=== PATIENT | female | born 1960 | race Caucasian/White ===

== ENCOUNTER → 2017-03-05 | Outpatient (REF) | payer OTHER, MEDICARE ==
[2017-03-05 18:19] LABS: ALBUMIN 3.6 GM/DL (3.2-5.2); ALBUMIN/GLOBULIN RATIO 1.16 (1.00-1.93); ALKALINE PHOSPHATASE 91 U/L (45-117); ALT/SGPT 30 U/L (12-78); ANION GAP 7 MEQ/L (8-16); AST/SGOT 19 U/L (15-37); BILIRUBIN,TOTAL 0.3 MG/DL (0.2-1.0); BLOOD UREA NITROGEN 20 MG/DL (7-18); CALCIUM LEVEL 9.2 MG/DL (8.5-10.1); CARBON DIOXIDE LEVEL 31 MEQ/L (21-32); CHLORIDE LEVEL 105 MEQ/L (98-107); CHOLESTEROL LEVEL 134 MG/DL (<200); CREATININE FOR GFR 0.62 MG/DL (0.55-1.02); FERRITIN 27 NG/ML (8-252); GLOMERULAR FILTRATION RATE > 60.0 (>51); GLUCOSE, FASTING 98 MG/DL (70-105); POTASSIUM SERUM 4.7 MEQ/L (3.5-5.1); SODIUM LEVEL 143 MEQ/L (136-145); TOTAL PROTEIN 6.7 GM/DL (6.4-8.2); TRIGLYCERIDES LEVEL 97 MG/DL (<150)
[2017-03-05 18:25] LABS: MEAN CORPUSCULAR HGB CONC 33.2 g/dl (32.0-36.5); MEAN CORPUSCULAR VOLUME 93.3 fl (80.0-96.0); RED CELL DISTRIBUTION WIDTH 12.5 % (11.5-14.5); WHITE BLOOD COUNT 4.3 K/mm3 (4.0-10.0)
[2017-03-05 18:52] LABS: VITAMIN B12 LEVEL 1366 PG/ML (247-911)
== END ==
LOC: M SFHCLERA 10:45
PROVIDERS: ATTEND Physician Assistant
DX: Z98.84 Bariatric surgery status (principal); E11.9 Type 2 diabetes mellitus without complications; E78.2 Mixed hyperlipidemia

== ENCOUNTER → 2017-05-15 | Outpatient (REF) | payer MEDICARE ==
[~2017-05-15] MED LIST: ATOR1TAB19 PO; GABA-282 PO; INSULANT SC; INSURSD SC; METF500T4 PO; NAPR500T3 PO; NORC10TA21 PO; PANT40TA2 PO; SUCR1TA PO; TIZA4CAP3 PO; TRAM50TA2 PO; TRAZ-136 PO; ZANA4TAB PO
== END ==
LOC: M LAB REF 13:06
PROVIDERS: ATTEND Surgery
DX: D17.22 Benign lipomatous neoplasm of skin and subcutaneous tissue of left arm (principal)

== ENCOUNTER 2017-07-18 23:13 | Inpatient (IN) | payer MEDICARE ==
[~2017-07-18] VITALS: Ht 177.8 cm; Wt 104.5 kg
[2017-07-18] MEDS ORDERED: TRAM50TA2 PO (23:26)
[2017-07-18] MEDS ORDERED: TRAZ-136 PO (23:26)
[2017-07-18] MEDS ORDERED: NAPR500T3 PO (23:26)
[2017-07-18] MEDS ORDERED: INSULANT SC (23:26)
[2017-07-18] MEDS ORDERED: METF500T4 PO (23:26)
[2017-07-18] MEDS ORDERED: ATOR1TAB19 PO (23:26)
[2017-07-18] MEDS ORDERED: TIZA4CAP3 PO (23:26)
[2017-07-18] MEDS ORDERED: GABA-282 PO (23:26)
[2017-07-18] MEDS ORDERED: INSURSD SC (23:26)
[2017-07-18] MEDS ORDERED: NORC10TA21 PO (23:26)
[2017-07-19 00:33] LABS: INR 0.98
[2017-07-19 00:41] LABS: BASO % 0.5 % (0.0-1.0); EOS # 0.1 10^3/uL (0.0-0.50); EOS % 1.8 % (0.0-3.0); IMMATURE GRANULOCYTE % 0.6 % (0-0); LYMPH # 1.8 10^3/uL (1.5-4.5); MEAN CORPUSCULAR HEMOGLOBIN 28.4 pg (27.0-33.0); MEAN CORPUSCULAR HGB CONC 32.7 g/dl (32.0-36.5); MONO # 0.4 10^3/uL (0.0-0.8); NEUTROPHILS # 4.3 10^3/uL (1.8-7.7); NEUTROPHILS % 64.1 % (36.0-66.0); PLATELET COUNT, AUTOMATED 236 10^3/uL (150-450); RED CELL DISTRIBUTION WIDTH 12.6 % (11.5-14.5); WHITE BLOOD COUNT 6.6 10^3/uL (4.0-10.0)
[2017-07-19 00:53] LABS: ALBUMIN 3.2 GM/DL (3.2-5.2); ALBUMIN/GLOBULIN RATIO 1.03 (1.00-1.93); ALKALINE PHOSPHATASE 102 U/L (45-117); ALT/SGPT 27 U/L (12-78); ANION GAP 5 MEQ/L (8-16); AST/SGOT 16 U/L (15-37); BILIRUBIN,DIRECT < 0.1 MG/DL (0.0-0.2); BILIRUBIN,TOTAL 0.3 MG/DL (0.2-1.0); BLOOD UREA NITROGEN 36 MG/DL (7-18); CALCIUM LEVEL 8.7 MG/DL (8.5-10.1); CARBON DIOXIDE LEVEL 29 MEQ/L (21-32); CHLORIDE LEVEL 105 MEQ/L (98-107); CREATININE FOR GFR 0.58 MG/DL (0.55-1.02); GLOMERULAR FILTRATION RATE > 60.0 (>51); GLUCOSE, FASTING 136 MG/DL (70-105); POTASSIUM SERUM 4.6 MEQ/L (3.5-5.1); SODIUM LEVEL 139 MEQ/L (136-145); TOTAL PROTEIN 6.3 GM/DL (6.4-8.2)
[2017-07-19] MEDS ORDERED: METOCLOPRAMIDE INJ 10MG/2ML VIAL (J2765) IV ONE (01:45)
[2017-07-19] MEDS ORDERED: NS 1,000 ML IV ONE ×2 (01:45)
[2017-07-19] MEDS ORDERED: MORPHINE 4 MG/ML 1ML SYRINGE IV ONE (01:45)
[2017-07-19] MEDS ORDERED: ZANA4TAB PO (01:48)
[2017-07-19] MEDS ORDERED: GLUCAGON FOR INJ 1 MG VIAL (J1610) SC PRN (04:15)
[2017-07-19] MEDS ORDERED: GLUCOSE 4 GM CHEW TABLET PO PRN (04:15)
[2017-07-19 04:56] LABS: MEAN CORPUSCULAR HEMOGLOBIN 28.3 pg (27.0-33.0); MEAN CORPUSCULAR VOLUME 88.6 fl (80.0-96.0); RED CELL DISTRIBUTION WIDTH 12.5 % (11.5-14.5); WHITE BLOOD COUNT 6.1 10^3/uL (4.0-10.0)
[2017-07-19] MEDS: NS 1,000 ML IV SCH ×3 (05:39→20:42)
[2017-07-19] MEDS: PANTOPRAZOLE SODIUM 40 MG in D5W 50 ML IV SCH ×3 (05:40→18:48)
[2017-07-19 06:00] VITALS: BP 151/71
--- NOTE | 2017-07-19 06:59 | HPEPDOC ---
General Date of Admission Jul 19, 2017 at 03:53 Primary Care Physician: TERI EPPS PA-C Attending Physician: MALKA GARCIA MD Chief Complaint The patient is a 56-year-old female admitted with a reason for visit of Gastrointestinal Bleed. Source: Patient Exam Limitations: No limitations Timing/Duration: 4-6 hours Severity: Moderate History of Present Illness 56-year-old female, history gastric bypass in January 2013, diabetes mellitus type 2. 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 She never had these symptoms before. She is not on any antiplatelets or anticoagulants the quantity was about a cupful of size. Denies any hemoptysis, melena, hematuria, dysuria, ecchymosis, bruises or petechiae. Home Medications Scheduled Atorvastatin Calcium (Atorvastatin Calcium) 10 Mg Tab, 10 MG PO DAILY, (Reported ) Gabapentin (Gabapentin) 300 Mg Cap, 300 MG PO BID, (Reported) Insulin Glargine (Lantus) 1 Units/0.01 Ml Susp, 20 UNITS SC QHS, (Reported) Insulin Human Regular (Humulin R) 1 Units/0.01 Ml Soln, 1 UNITS SC AC, (Reported ) Metformin Hydrochloride (Metformin HCl ER) 500 Mg Tab, 500 MG PO BID, (Reported) Naproxen (Naproxen) 500 Mg Tab, 500 MG PO BID, (Reported) Tramadol HCl (Tramadol HCl) 50 Mg Tab, 100 MG PO BID, (Reported) Trazodone HCl (Trazodone HCl) 100 Mg Tab, 100 MG PO QHS, (Reported) Scheduled PRN Acetaminophen/Hydrocodone ([place] 10-325 mg) 1 Tab Tab, 1 TAB PO Q12H PRN for PAIN OR DYSPNEA, (Reported) Tizanidine Hydrochloride (Zanaflex) 4 Mg Tab, 4 MG PO DAILY PRN for MUSCLE SPASMS, (Reported) Allergies Coded Allergies: No Known Allergies (Unverified , 07/18/17) Past Medical History Medical History Diabetes mellitus, fibromyalgia fibrous tumor Surgical History fibrous tumor removal, 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 Dyspnea, Lt Headedness Gastrointestinal: Reports: Vomiting, Other Symptoms (bright red hematemesis), Denies: Nausea, Abdominal Pain, Diarrhea Genitourinary: Denies: Dysuria, Frequency, Incontinence, Retention Hematologic: Denies: Bruising, Bleeding Excessively Musculoskeletal: Denies: Neck Pain, Back Pain, Joint Pain, Muscle Pain, Spasms Neurological: Denies: Weakness, Numbness, Change in speech, Confusion Psych: Reports: Mood Normal, Denies: Depression, Memory Issues Physical Examination General Exam: Positive: Alert Eye Exam: Positive: PERRLA, Conjunctiva & lids normal, EOMI, Negative: Sclera icteric ENT Exam: Positive: Atraumatic, Mucous membr. moist/pink, Pharynx Normal Neck Exam: Positive: Supple, Negative: JVD, thyromegaly Chest Exam: Positive: Clear to auscultation, Normal air movement Heart Exam: Positive: Rate Normal, Regular Rhythm, Normal S1, Normal S2, Negative: Murmurs, Rubs Telemetry: Positive: No significant arrhythmia Abdomen Exam: Positive: Normal bowel sounds, Soft, Negative: Tenderness, Hepatospenomegaly Extremity Exam: Positive: Normal pulses, Negative: Clubbing, Cyanosis, Edema Skin Exam: Positive: Nl turgor and temperature, Negative: Breakdown, Lesion Neuro Exam: Positive: Normal Speech, Cranial Nerves 3-12 NL, Reflexes 2+ Psych Exam: Positive: Mental status NL, Mood NL, Oriented x 3 Vital Signs Vital Signs Date Time Temp Pulse Resp B/P (MAP) Pulse Ox O2 Delivery O2 Flow Rate FiO2 07/19/17 06:00 97.3 85 18 151/71 (97) 100 Room Air Laboratory Data Labs 24H Laboratory Tests 2 07/19/17 00:13: Immature Granulocyte % (Auto) 0.6H, White Blood Count 6.6, Red Blood Count 3.45L , Hemoglobin 9.8L, Hematocrit 30.0L, Mean Corpuscular Volume 87.0, Mean Corpuscular Hemoglobin 28.4, Mean Corpuscular Hemoglobin Concent 32.7, Red Cell Distribution Width 12.6, Platelet Count 236, Neutrophils (%) (Auto) 64.1, Lymphocytes (%) (Auto) 27.0, Monocytes (%) (Auto) 6.0H, Eosinophils (%) (Auto) 1.8, Basophils (%) (Auto) 0.5, Neutrophils # (Auto) 4.3, Lymphocytes # (Auto) 1.8, Monocytes # (Auto) 0.4, Eosinophils # (Auto) 0.1, Basophils # (Auto) 0.0, Immature Granulocyte # (Auto) 0.0, Nucleated Red Blood Cells % (auto) 0.0, Prothrombin Time 13.1, Prothromb Time International Ratio 0.98, Activated Partial Thromboplast Time 25.8L, Anion Gap 5L, Glomerular Filtration Rate > 60.0 , Lactic Acid Level 1.5, Calcium Level 8.7, Aspartate Amino Transf (AST/SGOT) 16 , Alanine Aminotransferase (ALT/SGPT) 27, Alkaline Phosphatase 102, Total Bilirubin 0.3, Direct Bilirubin < 0.1, Total Creatine Kinase 265H, Creatine Kinase MB 3.7H, Creatine Kinase MB Relative Index 1.39, Troponin I < 0.02, Total Protein 6.3L, Albumin 3.2, Albumin/Globulin Ratio 1.03, Lipase 153 07/19/17 04:33: CBC/BMP Laboratory Tests 07/19/17 00:13 Red Blood Count 3.45 L, Mean Corpuscular Volume 87.0, Mean Corpuscular Hemoglobin 28.4, Mean Corpuscular Hemoglobin Concent 32.7, Red Cell Distribution Width 12.6, Neutrophils (%) (Auto) 64.1, Lymphocytes (%) (Auto) 27.0, Monocytes (%) (Auto) 6.0 H, Eosinophils (%) (Auto) 1.8, Basophils (%) ( Auto) 0.5, Neutrophils # (Auto) 4.3, Lymphocytes # (Auto) 1.8, Monocytes # (Auto ) 0.4, Eosinophils # (Auto) 0.1, Basophils # (Auto) 0.0 07/19/17 04:33 Red Blood Count 3.07 L, Mean Corpuscular Volume 88.6, Mean Corpuscular Hemoglobin 28.3, Mean Corpuscular Hemoglobin Concent 32.0, Red Cell Distribution Width 12.5 Microbiology Microbiology 07/19/17 Blood Culture, Received Pending 07/19/17 Blood Culture, Received Pending 07/19/17 Urine Culture, Received Pending Assessment/Plan 56-year-old female, history of gastric bypass, diabetes mellitus type 2. Fibromyalgia presented to the emergency room for bright red hematemesis Plan / VTE VTE Prophylaxis Ordered?: Yes VTE Exclusion Pharmacological: Bleeding Risk Plan Plan Acute blood loss anemia. Hemoglobin dropped to 9.8 from the baseline of 12. Start Protonix dipstick CBC every 8 hours get to gastroenterology consult for endoscopy didn't Diabetes mellitus. Continue sliding scale insulin. And Levemir. Neuropathy. Continue with gabapentin DVT prophylaxis with SCD. Nothing by mouth Disposition Patient will likely be discharged home after endoscopy IVF: Discontinue Diet: Make NPO Activity: Continue Current Medications: Replete Electrolytes IV Diagnostics: LOAN RODRIGUEZ MD Jul 19, 2017 06:59
[2017-07-19] MEDS: HumaLOG INSULIN (NovoLOG) PER UNIT SC SCH ×3 (07:30→17:30)
[2017-07-19 08:00] VITALS: BP 153/89
[2017-07-19] MEDS ORDERED: SUCRALFATE 1 GM TAB PO ONE (08:15)
[2017-07-19] MEDS ORDERED: GI COCKTAIL 50ML BTL(HYOSCYAMINE/MAALOX/LIDOCAINE VISCOUS)(1:3:1) PO ONE (08:15)
[2017-07-19] MEDS ORDERED: MORPHINE 2 MG/ML 1ML SYRINGE IV ONE (08:15)
[2017-07-19] MEDS ORDERED: PERCOCET 5MG/325MG TAB PO ONE (08:15)
[2017-07-19] MEDS: GABAPENTIN 300 MG CAP PO SCH ×2 (08:26→20:33)
[2017-07-19] MEDS: ATORVASTATIN 10 MG TAB PO SCH (08:27)
[2017-07-19 11:59] LABS: MEAN CORPUSCULAR HEMOGLOBIN 28.2 pg (27.0-33.0); MEAN CORPUSCULAR HGB CONC 32.3 g/dl (32.0-36.5); MEAN CORPUSCULAR VOLUME 87.5 fl (80.0-96.0); RED CELL DISTRIBUTION WIDTH 12.5 % (11.5-14.5); WHITE BLOOD COUNT 6.1 10^3/uL (4.0-10.0)
[2017-07-19 12:00] VITALS: BP 127/71
[2017-07-19] MEDS: SUCRALFATE 1 GM TAB PO SCH ×2 (12:19→18:48)
[2017-07-19] MEDS: MORPHINE 2 MG/ML 1ML SYRINGE IV PRN ×3 (12:20→20:34)
[2017-07-19] MEDS ORDERED: PROPOFOL 200 MG/20 ML VIAL As Ordered ONE ×2 (15:42→16:07)
[2017-07-19] MEDS ORDERED: LIDOCAINE 2% INJ 100 MG/5 ML SDV (FOR ANES.) As Ordered ONE (15:42)
[2017-07-19] MEDS ORDERED: EPINEPHrine 1MG/10ML SYRINGE 1.5IN As Ordered ONE (16:04)
--- NOTE | 2017-07-19 16:34 | ROOR ---
Patient Name: Lisa Vasquez Procedure Date: 07/19/2017 3:27 PM Date of : 1960 Age: 56 Room: Main OR Gender: Female Note Status: Finalized Procedure: Upper GI endoscopy Indications: Hematemesis Providers: Alon Ludwig MD Referring MD: Carmina Olson MD Requesting Provider: Medicines: Monitored Anesthesia Care Complications: No immediate complications. Procedure: Pre-Anesthesia Assessment: - Prior to the procedure, a History and Physical was performed, and patient medications and allergies were reviewed. The patient is competent. The risks and benefits of the procedure and the sedation options and risks were discussed with the patient. All questions were answered and informed consent was obtained. Patient identification and proposed procedure were verified by the physician, the nurse and the body shop worker in the procedure room. Mental Status Examination: alert and oriented. Airway Examination: normal oropharyngeal airway and neck mobility. Respiratory Examination: clear to auscultation. CV Examination: normal. Prophylactic Antibiotics: The patient does not require prophylactic antibiotics. Prior Anticoagulants: The patient has taken no previous anticoagulant or antiplatelet agents. ASA Grade Assessment: III - A patient with severe systemic disease. After reviewing the risks and benefits, the patient was deemed in satisfactory condition to undergo the procedure. The anesthesia plan was to use monitored anesthesia care (MAC). Immediately prior to administration of medications, the patient was re-assessed for adequacy to receive sedatives. The heart rate, respiratory rate, oxygen saturations, blood pressure, adequacy of pulmonary ventilation, and response to care were monitored throughout the procedure. The physical status of the patient was re-assessed after the procedure. The Endoscope was introduced through the mouth, and advanced to the afferent jejunal loop. The upper GI endoscopy was accomplished without difficulty. The patient tolerated the procedure well. Findings: The examined esophagus was normal. Evidence of a Maddison-en-Y anastomosis was found in the gastric body. This was characterized by ulceration. Area was successfully injected with 4 mL of a 1:10,000 solution of epinephrine for drug delivery. One ligature was successfully placed. There was no bleeding at the end of the procedure. Exam of the jejunum was otherwise normal. Impression: - Normal esophagus. - A Maddison-en-Y anastomosis was found, characterized by ulceration. Injected. Ligated. - No specimens collected. Recommendation: - Return patient to [facility] for ongoing care. - Patient has a contact number available for emergencies. The signs and symptoms of potential delayed complications were discussed with the patient. Return to normal activities tomorrow. Written discharge instructions were provided to the patient. - Clear liquid diet today. - Give Protonix (pantoprazole): 8 mg/hr IV by continuous infusion for 1 day. - Use Protonix (pantoprazole) 40 mg PO daily for 8 weeks. - No ibuprofen, naproxen, or other non-steroidal anti-inflammatory drugs. - Repeat upper endoscopy in 3 months to check healing. - Return to GI clinic at appointment to be scheduled. Please call GI clinic @ [phone] to schedule appointment.. - Return to primary care physician. Alon Ludwig MD Alon Ludwig MD 07/19/2017 4:33:44 PM This report has been signed electronically. Number of Addenda: 0 Note Initiated On: 07/19/2017 3:27 PM Estimated Blood Loss: Estimated blood loss was minimal.
--- NOTE | 2017-07-19 17:08 | CR.PDOC ---
[facility] Consultation Consultation DATE OF CONSULTATION: Jul 19, 2017 at 1:50 PM Primary physician/ hospitalist: Dr. Sexton / Dr. Dawson Reason for consult: hematemesis. HPI: 56-year-old female with DM type 2, Obesity, fibromyalgia, history gastric bypass in January 2013, came to ER for complaints of one episode of vomiting of bright red blood and epigastric abdominal pain. Gi consulted for the same. Patient reported that she was taking naproxen 500mg twice daily since 2015. And yesterday night she had one episode of hematemesis Atleast one cupful of blood and later continued to have abdominal pain and nausea and came to ER. She denies diarrhea or dark stools. No prior similar episodes. Pertinent negative GI symptoms: Patient denies diarrhea, abdominal pain, loss of appetite, early satiety or unintentional weight loss, melena or hematochezia. Patient reports regular bowel movements. Review of Systems: GI: as stated above CVS: No chest pain, No palpitations, No leg swelling. RS: No Shortness of breath, No Wheezing, no cough DISTRICT OR DISTRICT OFFICE DIRECTOR: No dizziness, No motor weakness, No sensory problems Hematology: No bruising, No gum bleeding, Musculoskeletal: No joint pain, ambulating well. Skin: No rash : No hematuria, No burning sensation of the urine ENT: No ear discharge/ pain, No dysphagia. Eyes: No photophobia. Home medications: reviewed. Antithrombotic agents - none Medical h/o: As above. Surgical h/o: None on abdomen. Social h/o: Alcohol social, smoking denies, IVDA/ drugs denies. Family h/o of GI cancers - None Prior Endoscopies: --- EGD few years ago when she had gastric bypass - outside [facility] --- Colonoscopy none Prior GI evaluation: None in [facility] Exam: Vitals: reviewed General: Alert and oriented x 3, not in distress HEENT: NO pallor, no icterus. Normal oropharynx, NO cervical lymph nodes. Chest: symmetric with bilateral clear air entry, CVS: S1, S2 heard, normal, no murmurs . Abdomen: non-distended, obese, no surgical scars, soft, non-tender, no palpable masses, normal bowel sounds heard. Rectal exam: Patient refused / Deferred at this time in view of scheduled colonoscopy. Extremities: no pedal edema, pulses palpable. DISTRICT OR DISTRICT OFFICE DIRECTOR: no focal motor or sensory deficits. Moves all extremities Skin: no rash. Labs: reviewed. Imaging: reviewed Impression: - Hematemesis - with the drop in hemoglobin from baseline - and history of NSAID use -- likely PUD versus anastomotic ulcer, versus less likely AVMs - Anemia - likely from acute GI bleed. - Obesity - status post gastric bypass surgery. Recommendations: - Patient educated about the test results, possible differential diagnoses and All questions answered. - IV PPI for 24 hours then switch to oral pantoprazole 40 mg daily - to be taken in the morning half an hour before breakfast. - Nothing by mouth for now - Patient is scheduled for EGD today. The procedure, indications, risks ( bleeding, perforation, infection, hypotension, respiratory depression, allergy, need for endotracheal intubation, surgery, colostomy, cardiac arrest, even ), benefits, limitations (e.g., missing a lesion), and all other alternatives ( including no intervention) were explained to the patient who understood and agreed for the procedure. - Follow-up postprocedure recommendations. Plan of care discussed with patient and primary team. Patient verbalized understanding and agreed with the plan. Allergies Coded Allergies: No Known Allergies (Unverified , 07/18/17) Home Medications Scheduled Atorvastatin Calcium (Atorvastatin Calcium) 10 Mg Tab, 10 MG PO DAILY, (Reported ) Gabapentin (Gabapentin) 300 Mg Cap, 300 MG PO BID, (Reported) Insulin Glargine (Lantus) 1 Units/0.01 Ml Susp, 20 UNITS SC QHS, (Reported) Insulin Human Regular (Humulin R) 1 Units/0.01 Ml Soln, 1 UNITS SC AC, (Reported ) Metformin Hydrochloride (Metformin HCl ER) 500 Mg Tab, 500 MG PO BID, (Reported) Naproxen (Naproxen) 500 Mg Tab, 500 MG PO BID, (Reported) Tramadol HCl (Tramadol HCl) 50 Mg Tab, 100 MG PO BID, (Reported) Trazodone HCl (Trazodone HCl) 100 Mg Tab, 100 MG PO QHS, (Reported) Scheduled PRN Acetaminophen/Hydrocodone ([place] 10-325 mg) 1 Tab Tab, 1 TAB PO Q12H PRN for PAIN OR DYSPNEA, (Reported) Tizanidine Hydrochloride (Zanaflex) 4 Mg Tab, 4 MG PO DAILY PRN for MUSCLE SPASMS, (Reported) KRISTINA PICHARDO MD Jul 19, 2017 15:40
--- NOTE | 2017-07-19 17:12 | IPNPDOC ---
Date Seen The patient was seen on 07/19/17. Progress Note Patient tolerated EGD well. No post procedure complications. EGD findings: - Normal esophagus. - A Maddison-en-Y anastomosis was found, characterized by ulceration. Injected. Ligated. - No specimens collected. Recommendation: - Return patient to [facility] for ongoing care. - Patient has a contact number available for emergencies. The signs and symptoms of potential delayed complications were discussed with the patient. Return to normal activities tomorrow. Written discharge instructions were provided to the patient. - Clear liquid diet today and then advance as tolerated tomorrow.. - Give Protonix (pantoprazole): 8 mg/hr IV by continuous infusion till tomorrow 8 AM ( atleast total 24 hours). 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 - No ibuprofen, naproxen, or other non-steroidal anti-inflammatory drugs. - Repeat upper endoscopy in 3 months to check healing. - Return to GI clinic at appointment to be scheduled. Please call GI clinic @ [phone] to schedule appointment.. - Return to primary care physician. - Recall GI if any change in status. VS, I&O, 24H, Fishbone Laboratory Data 24H LABS Laboratory Tests 2 07/19/17 00:13: Immature Granulocyte % (Auto) 0.6H, White Blood Count 6.6, Red Blood Count 3.45L , Hemoglobin 9.8L, Hematocrit 30.0L, Mean Corpuscular Volume 87.0, Mean Corpuscular Hemoglobin 28.4, Mean Corpuscular Hemoglobin Concent 32.7, Red Cell Distribution Width 12.6, Platelet Count 236, Neutrophils (%) (Auto) 64.1, Lymphocytes (%) (Auto) 27.0, Monocytes (%) (Auto) 6.0H, Eosinophils (%) (Auto) 1.8, Basophils (%) (Auto) 0.5, Neutrophils # (Auto) 4.3, Lymphocytes # (Auto) 1.8, Monocytes # (Auto) 0.4, Eosinophils # (Auto) 0.1, Basophils # (Auto) 0.0, Immature Granulocyte # (Auto) 0.0, Nucleated Red Blood Cells % (auto) 0.0, Prothrombin Time 13.1, Prothromb Time International Ratio 0.98, Activated Partial Thromboplast Time 25.8L, Anion Gap 5L, Glomerular Filtration Rate > 60.0 , Lactic Acid Level 1.5, Calcium Level 8.7, Aspartate Amino Transf (AST/SGOT) 16 , Alanine Aminotransferase (ALT/SGPT) 27, Alkaline Phosphatase 102, Total Bilirubin 0.3, Direct Bilirubin < 0.1, Total Creatine Kinase 265H, Creatine Kinase MB 3.7H, Creatine Kinase MB Relative Index 1.39, Troponin I < 0.02, Total Protein 6.3L, Albumin 3.2, Albumin/Globulin Ratio 1.03, Lipase 153 07/19/17 04:33: Estimated Mean Plasma Glucose 146H, Hemoglobin A1c 6.7H 07/19/17 07:55: Bedside Glucose (Misc Panel) 122H 07/19/17 12:11: Bedside Glucose (Misc Panel) 133H CBC/BMP Laboratory Tests 07/19/17 00:13 Red Blood Count 3.45 L, Mean Corpuscular Volume 87.0, Mean Corpuscular Hemoglobin 28.4, Mean Corpuscular Hemoglobin Concent 32.7, Red Cell Distribution Width 12.6, Neutrophils (%) (Auto) 64.1, Lymphocytes (%) (Auto) 27.0, Monocytes (%) (Auto) 6.0 H, Eosinophils (%) (Auto) 1.8, Basophils (%) ( Auto) 0.5, Neutrophils # (Auto) 4.3, Lymphocytes # (Auto) 1.8, Monocytes # (Auto ) 0.4, Eosinophils # (Auto) 0.1, Basophils # (Auto) 0.0 07/19/17 04:33 Red Blood Count 3.07 L, Mean Corpuscular Volume 88.6, Mean Corpuscular Hemoglobin 28.3, Mean Corpuscular Hemoglobin Concent 32.0, Red Cell Distribution Width 12.5 07/19/17 11:50 Red Blood Count 3.19 L, Mean Corpuscular Volume 87.5, Mean Corpuscular Hemoglobin 28.2, Mean Corpuscular Hemoglobin Concent 32.3, Red Cell Distribution Width 12.5 Microbiology Microbiology 07/19/17 Blood Culture, Received Pending 07/19/17 Blood Culture, Received Pending 07/19/17 Urine Culture, Received Pending KRISTINA PICHARDO MD Jul 19, 2017 17:12
[2017-07-19 18:30] VITALS: BP 167/75
[2017-07-19 19:00] VITALS: BP 123/58
[2017-07-19 20:14] LABS: MEAN CORPUSCULAR HEMOGLOBIN 28.4 pg (27.0-33.0); MEAN CORPUSCULAR HGB CONC 31.8 g/dl (32.0-36.5); MEAN CORPUSCULAR VOLUME 89.3 fl (80.0-96.0); RED CELL DISTRIBUTION WIDTH 12.7 % (11.5-14.5); WHITE BLOOD COUNT 6.4 10^3/uL (4.0-10.0)
[2017-07-19] MEDS ORDERED: LEVEMIR (INSULIN DETEMIR) 1 UNITS/0.01ML SC SCH (21:00)
[2017-07-19 22:00] VITALS: BP 134/69
[2017-07-20] MEDS: PANTOPRAZOLE SODIUM 40 MG in D5W 50 ML IV SCH ×2 (00:46→05:13)
[2017-07-20] MEDS: SUCRALFATE 1 GM TAB PO SCH ×2 (05:13)
[2017-07-20 06:00] VITALS: BP 139/78
[2017-07-20 07:15] LABS: BASO % 0.2 % (0.0-1.0); EOS # 0.1 10^3/uL (0.0-0.50); EOS % 1.1 % (0.0-3.0); IMMATURE GRANULOCYTE % 0.4 % (0-0); LYMPH # 1.8 10^3/uL (1.5-4.5); LYMPH % 34.2 % (24.0-44.0); MEAN CORPUSCULAR HEMOGLOBIN 28.2 pg (27.0-33.0); MEAN CORPUSCULAR HGB CONC 32.1 g/dl (32.0-36.5); MONO # 0.3 10^3/uL (0.0-0.8); NEUTROPHILS # 3.1 10^3/uL (1.8-7.7); NEUTROPHILS % 58.1 % (36.0-66.0); PLATELET COUNT, AUTOMATED 239 10^3/uL (150-450); RED CELL DISTRIBUTION WIDTH 12.8 % (11.5-14.5); WHITE BLOOD COUNT 5.3 10^3/uL (4.0-10.0)
[2017-07-20 07:21] LABS: ADD MANUAL DIFFER NO; DIFF SLIDE NUMBER 53
[2017-07-20 07:26] LABS: INR 1.05
[2017-07-20 07:27] LABS: ALBUMIN 3.1 GM/DL (3.2-5.2); ALBUMIN/GLOBULIN RATIO 0.97 (1.00-1.93); ALKALINE PHOSPHATASE 92 U/L (45-117); ALT/SGPT 24 U/L (12-78); ANION GAP 3 MEQ/L (8-16); AST/SGOT 11 U/L (15-37); BILIRUBIN,TOTAL 0.3 MG/DL (0.2-1.0); BLOOD UREA NITROGEN 20 MG/DL (7-18); CALCIUM LEVEL 9.1 MG/DL (8.5-10.1); CARBON DIOXIDE LEVEL 30 MEQ/L (21-32); CHLORIDE LEVEL 110 MEQ/L (98-107); GLOMERULAR FILTRATION RATE > 60.0 (>51); GLUCOSE, FASTING 131 MG/DL (70-105); MAGNESIUM LEVEL 2.1 MG/DL (1.8-2.4); POTASSIUM SERUM 4.6 MEQ/L (3.5-5.1); SODIUM LEVEL 143 MEQ/L (136-145); TOTAL PROTEIN 6.3 GM/DL (6.4-8.2)
[2017-07-20] MEDS ORDERED: PANT40TA2 PO (08:37)
[2017-07-20] MEDS ORDERED: PANTOPRAZOLE 40MG TAB (PROTONIX) PO SCH (09:00)
[2017-07-20] MEDS ORDERED: SUCR1TA PO (09:00)
[2017-07-20] MEDS: GABAPENTIN 300 MG CAP PO SCH (09:33)
[2017-07-20] MEDS: ATORVASTATIN 10 MG TAB PO SCH (09:33)
--- NOTE | 2017-07-20 11:47 | DSES ---
DATE OF ADMISSION: 07/19/2017 DATE OF DISCHARGE: CONSULTANTS DURING THIS ADMISSION: Dr. Ludwig, gastroenterology. PRIMARY DISCHARGE DIAGNOSES: 1. Upper gastrointestinal bleed. 2. Acute blood loss anemia, no transfusion required. 3. Maddison-en-Y anastomosis with ulceration, injected and ligated. DISCHARGE INSTRUCTIONS: The patient is to take Protonix 40 mg daily for 8 weeks to be taken early breastfeeding care specialist on an empty stomach. No ibuprofen, Naprosyn or nonsteroidal antiinflammatory drugs. Repeat upper endoscopy in 3 months to check for healing. Return to the GI clinic. DISCHARGE MEDICATIONS: - Protonix 40 mg daily - Carafate 1 gram before food and nightly - [place] one tablet every 12 hours as needed for pain - atorvastatin 10 mg daily - gabapentin 300 mg twice a day - Lantus insulin 20 units at night - Humulin sliding scale - metformin 500 mg twice a day - tizanidine 4 mg daily - trazodone 100 mg at night HOSPITAL COURSE: This is a 56-year-old female with a history or Maddison-en-Y gastric bypass, diabetes, fibromyalgia, fibrous tumor, fibrous tumor removal, total of 47 in total, presented to the emergency room with acute hematemesis, about 1 cup without any shortness of breath, fatigue, weakness, dizziness, lightheadedness, admitted for further evaluation. She was kept nothing by mouth with IV fluids and Protonix drip, underwent EGD by Dr. Ludwig and found to have ulceration at the anastomotic site of the Maddison-en-Y, which was ligated and injected. She was kept on Protonix drip and transitioned to liquid diet, which she tolerated. The patient is taking Protonix and Carafate without much difficulty and is discharged in stable condition. Hemoglobin and hematocrit remained stable at 9.2 and 28.7. No blood transfusion was required. Vital signs remained stable. Systolic pressure 138/78. LABORATORY DATA: On discharge: White count 5.3, hemoglobin 9.2, hematocrit 28.7, platelet count 239. Sodium 143, potassium 4.6, chloride 110, bicarbonate 30, BUN 20, creatinine 0.6, glucose of 131, A1/c of 6.7. Microbiology: Two sets of blood cultures with no growth. Urine culture is pending. Time spent on discharge: 30 minutes.
--- NOTE | 2017-07-20 12:32 | ECGEPIP ---
Stationary ECG Study [facility] - ED Test Date: 2017-07-19 Pat Name: ANGEL WILSON Department: Room: [place] [address] Gender: F Line Person: berny : 1960 Requested By: Cecilia Marrero Order Number: [id number] Reading MD: Bree Farah Measurements Intervals [place] Rate: 74 P: 30 CT: 143 QRS: -7 QRSD: 90 T: 14 QT: 374 QTc: 416 Interpretive Statements SINUS RHYTHM NO PRIOR FOR COMPARISON Electronically Signed On 07-20-2017 12:32:25 EDT by Bree Farah
== END 2017-07-20 09:35 | disposition home or self-care (01) | DRG 907 ==
LOC: M ED 23:13 → M ED INP 07-19 03:53 → M MS5PR 07-19 17:15
PROVIDERS: ADMIT Internal Medicine; ATTEND General Practice
PROC: 0DL Gastrointestinal System, Occlusion (ICD-10-PCS; principal; 2017-07-19 14:00)
DX: K91.840 Postprocedural hemorrhage of a digestive system organ or structure following a digestive system procedure (principal); K28.4 Chronic or unspecified gastrojejunal ulcer with hemorrhage; D62 Acute posthemorrhagic anemia; E11.40 Type 2 diabetes mellitus with diabetic neuropathy, unspecified; M79.7 Fibromyalgia; Z79.4 Long term (current) use of insulin; Z79.899 Other long term (current) drug therapy; Z98.84 Bariatric surgery status

== ENCOUNTER → 2017-08-29 | Outpatient (CLI) | payer MEDICARE ==
--- NOTE | 2017-09-17 01:28 | ECWPNPC ---
PATIENT NAME: ANGEL WILSON : 1960 GENDER: FEMALE VISIT DATE: 08/29/2017 DISCHARGE DATE: 08/29/17 1316 VISIT LOCKED DATE TIME: PHYSICIAN: DANILO SHEFFIELD RESOURCE: DANILO SHEFFIELD REASON FOR APPOINTMENT 1. BACK PAIN HISTORY OF PRESENT ILLNESS FALL RISK SCREENING: SCREENING :NO FALLS IN THE PAST YEAR 56 YEAR OLD FEMALE PATIENT WITH HISTORY OF CHRONIC BACK PAIN. PATIENT DESCRIBES THE PAIN ACHING, SHARP AND HAVING IT ALL THE TIME WITH A PAIN SCORE OF 8/10. PATIENT STATES THE PAIN STARTED IN 1992 WHEN SHE HAD 47 TUMORS REMOVED FROM HER BODY. PATIENT STATES SHE DOES STRETCHES DAILY TO STAY LIMBER BUT SHE STILL HAVE SEVERE PAIN DAILY. PATIENT STATES THAT WALKING AND HOT WEATHER INCREASES THE PAIN THE MOST. PATIENT REPORTS HAVING INJECTION AND ATTENDING PHYSICAL THERAPY IN THE PAST AND HAD NO RELIEF FROM EITHER. CURRENTLY THE PATIENT IS USING ZANAFLEX, GABAPENTIN, AND HYDROCODONE TO AID IN PAIN RELIEF. PATIENT DENIES UNEXPLAINABLE WEIGHT LOSS, FEVER, CHILLS, NEW CHANGES ON HER URINARY OR BOWEL CONTROL. PAIN SCREENING: PATIENT HAS A COMPLAINT OF ACUTE OR CHRONIC PAIN :YES CURRENT MEDICATIONS TAKING B-50 COMPLEX - TABLET EXTENDED RELEASE ORALLY TAKING HUMULIN R 100 UNIT/ML SOLUTION INJECTION , NOTES: NEEDED TAKING SUMATRIPTAN SUCCINATE 50 MG TABLET 1 TABLET NEEDED ORALLY TWICE A DAY TAKING HAIR SKIN AND NAILS FORMULA - TABLET ORALLY TAKING DIFLUCAN 150 MG TABLET 1 TABLET ORALLY QDAY X 1 DAY, REPEAT IN 1 WEEK IF NECESSARY TAKING KEFLEX 500 MG CAPSULE 1 CAPSULE ORALLY TID TAKING ZANAFLEX 4 MG TABLET 1 TABLET NEEDED ORALLY THREE TIMES A DAY PRN TAKING METFORMIN HCL ER 500 MG TABLET EXTENDED RELEASE 24 HOUR 1 TABLET ORALLY BID TAKING TRAZODONE HCL 100 MG TABLET 1 TABLET AT BEDTIME ORALLY ONCE A DAY TAKING GABAPENTIN 300 MG CAPSULE 1 CAPSULE ORALLY BID TAKING LANTUS 100 UNIT/ML SOLUTION 20 UNITS SUBCUTANEOUS DAILY ICD10 E11.9 TAKING BD INSULIN SYRINGE 30G X 1/2 MISCELLANEOUS 1 INJECTION _ FOUR TIMES DAILY ICD10 E11.65 TAKING ATORVASTATIN CALCIUM 10 MG TABLET 1 TABLET ORALLY ONCE A DAY TAKING ONETOUCH VERIO - STRIP DIRECTED IN VITRO QID ICD10 Z79 TAKING HYDROCODONE-ACETAMINOPHEN 10-325 MG TABLET 1 TABLET NEEDED ORALLY EVERY 12 HOURS MEEDED MDD# 2 TAKING TRAMADOL HCL 50 MG TABLET 1 TAB ORALLY EVERY 6 HOURS NEEDED/MMD#4 TAKING PANTOPRAZOLE SODIUM 40 MG TABLET DELAYED RELEASE 1 TABLET ORALLY ONCE A DAY TAKING CARAFATE 1 GM TABLET 1 TABLET ON AN EMPTY STOMACH ORALLY TID NOT-TAKING CEPHALEXIN 500 MG CAPSULE 1 CAPSULE ORALLY THREE TIMES DAILY NEEDED NOT-TAKING TIZANIDINE HCL 4 MG TABLET 1 TABLET NEEDED ORALLY THREE TIMES A DAY PRN NOT-TAKING NAPROSYN 500 MG TABLET 1 TABLET NEEDED ORALLY EVERY 12 HRS MEDICATION LIST REVIEWED AND RECONCILED WITH THE PATIENT PAST MEDICAL HISTORY CHRONIC NECK PAIN CHRONIC LBP ALLERGIES N.K.D.A. SURGICAL HISTORY GASTRIC BYPASS 01/2013 FIBROUS TUMOR REMOVALS MULTIPLE TONSILECTOMY 2010 SOCIAL HISTORY GENERAL: TOBACCO USE ARE YOU A:FORMER SMOKER HOW LONG HAS IT BEEN SINCE YOU LAST SMOKED?> 10 YEARS LUNG CANCER SCREENING SMOKING STATUS:FORMER SMOKER BMI CARE GOAL FOLLOW-UP ABOVE NORMAL BMI FOLLOW-UPDIETARY MANAGEMENT EDUCATION, GUIDANCE, AND COUNSELING ALCOHOL SCREENING DID YOU HAVE A DRINK CONTAINING ALCOHOL IN THE PAST YEAR?YES HOW OFTEN DID YOU HAVE A DRINK CONTAINING ALCOHOL IN THE PAST YEAR?NEVER (0 POINTS) HOW MANY DRINKS DID YOU HAVE ON A TYPICAL DAY WHEN YOU WERE DRINKING IN THE PAST YEAR?1 OR 2 (0 POINTS) HOW OFTEN DID YOU HAVE SIX OR MORE DRINKS ON ONE OCCASION IN THE PAST YEAR?NEVER (0 POINTS) POINTS0 INTERPRETATIONNEGATIVE RECREATIONAL DRUG USE DRUG USE?YES MEDICINAL MARIJUANA CAFFEINE CAFFEINE USE?YES COFFEE, SODA OCCUPATION: DISABLED. MARITAL STATUS: . OTHERS AT HOME: SPOUSE. PETS: 2 DOGS- SERVICE DOGS. ORIENTAL ORTHODOX [id number] TEMPLE LANGUAGE LANGUAGES SPOKEN:BULGARIAN EDUCATION LEVEL OF EDUCATION:NOT FINISHED COLLEGE LEARNING BARRIERS / SPECIAL NEEDS CHANGE FROM LAST VISIT?NO BARRIERS TO LEARNING?NO HEARING IMPAIRED?NO VISION IMPAIRED?YES :CORRECTIVE LENSES COGNITIVELY IMPAIRED?NO READINESS TO LEARN?YES LEARNING PREFERENCES?NO LEARNING CAPABILITIES PRESENT?YES EMOTIONAL BARRIERS?NO SPECIAL DEVICES?NO ASPHALT ENGINEER NEEDED?NO PAIN CLINIC PFS, CLERGY, PUBLIC HEALTH REFERRALS HAS THE PATIENT BEEN EDUCATED REGARDING HIS/HER PLAN OF CARE?YES HAS THE PATIENT BEEN EDUCATED REGARDING PAIN, THE RISK FOR PAIN, THE IMPORTANCE OF EFFECTIVE PAIN MANAGEMENT, AND THE PAIN ASSESSMENT PROCESS?YES ADVANCE DIRECTIVES HEALTH CARE PROXY?NO DO YOU HAVE A DNR?NO LIVING WILL?NO POWER OF DIRECTOR STRATEGIC ACCOUNT MANAGEMENT?NO HOSPITALIZATION/MAJOR DIAGNOSTIC PROCEDURE SURGICAL REVIEW OF SYSTEMS REVIEWED BY: PROVIDER: DANILO SHEFFIELD MD . CONSTITUTIONAL: ANY CHANGE IN YOUR MEDICAL CONDITION? NO . CHILLS NO . FEVER NO . INFECTION: DO YOU HAVE NEW INFECTIONS? NO . DO YOU HAVE HISTORY OF MRSA? NO . MUSCULOSKELETAL: ANY NEW PATTERNS OF PAIN OR NUMBNESS? NO . SYTEMIC LUPUS NO . GASTROENTEROLOGY: ANY NEW CHANGE IN BOWEL CONTROL? NO . BARRETTS ESOPHAGUS NO . CIRRHOSIS NO . HEPATITIS NO . LIVER FAILURE NO . ACID REFLUX NO . UNEXPLAINED WEIGHT LOSS NO . GENITOURINARY: ANY NEW CHANGE IN BLADDER CONTROL? NO . IS THERE A CHANCE YOU COULD BE ? NO . HEMATOLOGY/LYMPH: DO YOU TAKE ANY BLOOD THINNERS? (FOR EXAMPLE- COUMADIN, PLAVIX, AGGRENOX, PLATEL, PRADAXA, OR XARELTO) NO . WHEN WAS YOUR LAST DOSE? DATE: TIME: . LOW PLATELET COUNT NO . SICKLE CELL DISEASE NO . VON WILLIEBRANDS NO . FACTOR V LEIDEN NO . THALLASEMIA NO . ANEMIA NO . EASY BRUISING NO . NEUROLOGY: HAVE YOU FALLEN IN THE PAST 6 MONTHS? YES, PT STATES SHE FELL FROM PAIN AND WEAKNESS, PT DENIES INJURIES OR SEEKING MEDICAL TX . ANY NEW EXTREMITY NUMBNESS OR WEAKNESS? NO . HEAD INJURY NO . DEMENTIA NO . CEREBRAL PALSY NO . MULTIPLE SCLEROSIS NO . DIZZINESS NO . HEADACHE NO . STROKES NO . VERTIGO NO . CARDIOLOGY: DO YOU HAVE A PACEMAKER OR DEFIBRILLATOR? NO . ANGINA NO . HEART ATTACK NO . HEART SURGERY NO . CONGESTIVE HEART FAILURE/FLUID OVERLOAD NO . CHEST PAIN NO . HIGH BLOOD PRESSURE NO . IRREGULAR HEART BEAT NO . RESPIRATORY: HAVE YOU BEEN SICK IN THE PAST WEEK? NO . FEVER NO . FLU LIKE SYMPTOMS? NO . CPAP NO . BYPAP NO . ASTHMA NO . EMPHYSEMA NO . CHRONIC LUNG DISEASES NO . SHORTNESS OF BREATH ON EXERTION NO . COUGH NO . SNORING NO . INTEGUMENTARY: DO YOU HAVE ANY RASHES OR OPEN SORES? NO . ALLERGIC/IMMUNO: ARE YOU ALLERGIC TO SHELLFISH OR IV DYE? NO . ANY NEW ALLERGIES? NO . PSYCHIATRIC: DO YOU HAVE THOUGHTS OF HURTING YOURSELF OR SOMEONE ELSE? NO . ARE YOU ABUSED, NEGLECTED, OR IN AN UNSAFE ENVIRONMENT? NO . ENDOCRINOLOGY: ARE YOU DIABETIC? YES . THYROID DISORDER NO . OTHER: DO YOU NEED ANY PRESCRIPTIONS? NO . IF YES, PLEASE LIST: ____ . ANY NEW PROBLEMS WITH YOUR MEDICATIONS? NO . WHEN DID YOU LAST EAT? ____ . WHEN DID YOU LAST DRINK? ____ . WHAT DID YOU LAST DRINK? ____ . NAME OF PERSON DRIVING YOU HOME? ____ . DO YOU HAVE ANY OTHER QUESTIONS OR CONCERNS NO . VITAL SIGNS WT 257.4 LBS, HT 69 IN, BMI 38.01 INDEX, BP 155/72 MM HG, HR 82 /MIN, RR 16 /MIN, TEMP 98.3 F, OXYGEN SAT % 98%, NA INITIALS TL 1149, REVIEWED BY: EM. EXAMINATION : PATIENT IS ALERT O X 3 AND COOPERATIVE. TENDERNESS IN THE LOWER BACK AND PARASPINAL MUSCLE GROUP CLOSE TO THE SACROILIAC JOINT. LEFT LEG IS WEAKER THEN THE RIGHT AT EXTENSION AND FLEXION. FAVERE TEST POSITIVE FOR PAIN BILATERALLY. LUNGS CLEAR, TO AUSCULTATION. HEART- NO MURMURS OR GALLOPS; FACIAL CRANIAL NERVES ARE GROSSLY NORMAL. GOOD SYMMETRY OF FACIAL MUSCLE MOVEMENT. NORMAL VISUAL OLSEN. ABDOMINAL SOFT AND DEPRESSIBLE. ASSESSMENTS SACROILIITIS, NOT ELSEWHERE CLASSIFIED - M46.1 (PRIMARY) LOW BACK PAIN - M54.5 OTHER CHRONIC PAIN - G89.29 TREATMENT SACROILIITIS, NOT ELSEWHERE CLASSIFIED NOTES: WE DISCUSSED SEVERAL ISSUES WITH MRS. WILSON'S PAIN MANAGEMENT CASE. AT THIS TIME THE PATIENT WILL CONTINUE WITH THE SAME MEDICATION REGIME BEFORE. PATIENT IS AWARE HER PRIMARY CARE, DR. EPPS WILL NEED TO SPEAK WITH MYSELF OR THE GEAR KEEPER TO PROCEED WITH MEDICATION MANAGEMENT. I WOULD LIKE THE PATIENT TO START PHYSICAL THERAPY TO SEE IF IT WILL AID IN MOBILITY AND FUNCTIONALITY. I WOULD ALSO LIEK THE PATIENT TO RECEIVE A LUMBAR MRI SO THAT I CAN VIEW THE SOFT TISSUE OF THE PATIENT'S LOWER BACK SO WE MAY PROCEED WITH INTERVENTIONS. PATIENT WILL RETURN IN 3 WEEKS TO DISCUSS MEDICATIONS AND POSSIBLE INTERVENTIONS PRIOR TO THE MRI. INSTRUCTIONS WERE GIVEN, QUESTIONS WERE ANSWERED, PATIENT REPORTS UNDERSTANDING AND AGREES WITH THE PLAN. I, IRMA VARGAS, DOCUMENTED THE ABOVE INFORMATION ACTING A SCRIBE FOR DR. SHEFFIELD. I HAVE REVIEWED THE ABOVE DOCUMENT, WRITTEN BY IRMA SNYDER AND I VERIFY THAT IT IS ACCURATE. DEAR DR. EPPS:THANK YOU FOR YOUR KIND REFERRAL OF MRS. WILSON. IF YOU WANT TO DISCUSS HER CASE WITH ME PLEASE CALL ME AT THE PAIN CENTER AT [phone]. SINCERELY,DANILO SHEFFIELD, [facility]. PROCEDURE CODES FA211 ESTABILISHED PATIENT [facility] FACILITY CHARGE G8427 DOC MEDS VERIFIED W/PT OR RE G8730 PAIN ASSESS POS TOOL F/U PLAN DOC DISPOSITION & COMMUNICATION FOLLOW UP 4 WEEKS ELECTRONICALLY SIGNED BY DANILO SHEFFIELD MD ON 09/15/2017 AT 06:41 PM EST DISCLAIMER : THIS IS A VISIT SUMMARY EXTRACTED FROM THE [employer] CHART. IT IS NOT A COPY OF THE [employer] PROGRESS NOTE. MAL
== END ==
LOC: M PAIN 11:30
PROVIDERS: ATTEND Anesthesiology
DX: M46.1 Sacroiliitis, not elsewhere classified (principal); M54.5 Low back pain; G89.29 Other chronic pain; E11.9 Type 2 diabetes mellitus without complications; E78.2 Mixed hyperlipidemia; Z79.4 Long term (current) use of insulin; Z79.899 Other long term (current) drug therapy; Z79.891 Long term (current) use of opiate analgesic; Z87.891 Personal history of nicotine dependence; Z98.84 Bariatric surgery status

== ENCOUNTER → 2017-09-12 | Outpatient (CLI) | payer MEDICARE ==
--- NOTE | 2017-09-12 14:55 | REP ---
Left shoulder series: Three views. History: Acute pain left shoulder. Findings: There is moderate osteoarthritic hypertrophy at the acromioclavicular joint. There is some inferior nonarticular spurring along the inferior edge of the acromion process. These findings may be related to impingement. Glenohumeral articulation is normally aligned. Humeral head is smooth and rounded. No erosive changes seen. Periarticular soft tissues are unremarkable. Impression: AC joint osteoarthritis and acromion process spurring. No acute bony abnormality. Signed by Zelalem Manzano MD 09/12/2017 02:46 P
== END ==
LOC: M LRY 13:44
PROVIDERS: ATTEND Physician Assistant
DX: M19.012 Primary osteoarthritis, left shoulder (principal)

== ENCOUNTER → 2017-09-15 | Outpatient (REF) | payer MEDICARE ==
[2017-09-15 20:40] LABS: ALBUMIN 3.6 GM/DL (3.2-5.2); ALBUMIN/GLOBULIN RATIO 0.97 (1.00-1.93); ALKALINE PHOSPHATASE 120 U/L (45-117); ALT/SGPT 22 U/L (12-78); ANION GAP 7 MEQ/L (8-16); AST/SGOT 14 U/L (7-37); BILIRUBIN,TOTAL 0.3 MG/DL (0.2-1.0); BLOOD UREA NITROGEN 15 MG/DL (7-18); CALCIUM LEVEL 9.3 MG/DL (8.5-10.1); CARBON DIOXIDE LEVEL 30 MEQ/L (21-32); CHLORIDE LEVEL 106 MEQ/L (98-107); CHOLESTEROL LEVEL 157 MG/DL (<200); GLOMERULAR FILTRATION RATE > 60.0 (>51); GLUCOSE, FASTING 55 MG/DL (70-105); POTASSIUM SERUM 4.6 MEQ/L (3.5-5.1); SODIUM LEVEL 143 MEQ/L (136-145); TOTAL PROTEIN 7.3 GM/DL (6.4-8.2); TRIGLYCERIDES LEVEL 105 MG/DL (<150)
== END ==
LOC: M SFHCLERA 14:06
PROVIDERS: ATTEND Physician Assistant
DX: E78.2 Mixed hyperlipidemia (principal); E11.9 Type 2 diabetes mellitus without complications; R63.5 Abnormal weight gain

== ENCOUNTER → 2017-09-30 | Outpatient (CLI) | payer MEDICARE | LOC: M PAIN 13:00 | DX: G89.29 Other chronic pain (principal); M54.5 Low back pain; G62.9 Polyneuropathy, unspecified; E11.9 Type 2 diabetes mellitus without complications; Z79.4 Long term (current) use of insulin; Z79.891 Long term (current) use of opiate analgesic; Z79.899 Other long term (current) drug therapy; Z87.891 Personal history of nicotine dependence; Z98.84 Bariatric surgery status | CPT/HCPCS: G0463 ==

== ENCOUNTER → 2017-10-31 | Outpatient (CLI) | payer MEDICARE | LOC: M PAIN 13:00 | DX: G89.29 Other chronic pain (principal); M54.5 Low back pain; G62.9 Polyneuropathy, unspecified; E11.9 Type 2 diabetes mellitus without complications; Z79.4 Long term (current) use of insulin; Z79.891 Long term (current) use of opiate analgesic; Z79.899 Other long term (current) drug therapy; Z98.84 Bariatric surgery status; Z87.891 Personal history of nicotine dependence | CPT/HCPCS: G0463 ==

== ENCOUNTER → 2017-11-01 | Outpatient (CLI) | payer MEDICARE | LOC: M RAD 12:54 | DX: M12.88 Other specific arthropathies, not elsewhere classified, other specified site (principal); M51.36 Other intervertebral disc degeneration, lumbar region; M43.16 Spondylolisthesis, lumbar region | CPT/HCPCS: 72148 ==

== ENCOUNTER → 2017-11-07 | Outpatient (CLI) | payer MEDICARE | LOC: M RAD 17:10 | DX: M25.512 Pain in left shoulder (principal); M75.92 Shoulder lesion, unspecified, left shoulder | CPT/HCPCS: 73221 ==

== ENCOUNTER → 2017-11-21 | Outpatient (CLI) | payer MEDICARE | LOC: M PAIN 11:30 | DX: M54.5 Low back pain (principal); G62.9 Polyneuropathy, unspecified; G89.29 Other chronic pain; E11.9 Type 2 diabetes mellitus without complications; Z79.4 Long term (current) use of insulin; Z79.891 Long term (current) use of opiate analgesic; Z79.899 Other long term (current) drug therapy; Z98.84 Bariatric surgery status; Z87.891 Personal history of nicotine dependence | CPT/HCPCS: G0463 ==

== ENCOUNTER → 2017-12-19 | Outpatient (CLI) | payer MEDICARE | LOC: M PAIN 11:30 | DX: M54.5 Low back pain (principal); G62.9 Polyneuropathy, unspecified; E11.9 Type 2 diabetes mellitus without complications; E78.5 Hyperlipidemia, unspecified; Z79.4 Long term (current) use of insulin; Z79.891 Long term (current) use of opiate analgesic; Z98.84 Bariatric surgery status; Z87.891 Personal history of nicotine dependence | CPT/HCPCS: G0463 ==

== ENCOUNTER → 2018-01-15 | Outpatient (CLI) | payer MEDICARE ==
[~2018-01-15] MED LIST changes: -ATOR1TAB19 PO; +BUPIVACAINE HCL 0.25% 30 ML VIAL As Ordered; -GABA-282 PO; -INSULANT SC; -INSURSD SC; +ISOVUE-M 300 61% 15ML VIAL (Q9967) As Ordered; +LIDOCAINE 1% SDV INJ 30 ML VIAL As Ordered; -METF500T4 PO; -NAPR500T3 PO; -NORC10TA21 PO; -PANT40TA2 PO; -SUCR1TA PO; -TIZA4CAP3 PO; -TRAM50TA2 PO; -TRAZ-136 PO; +TRIAMCINOLONE ACETONIDE SUSP 40 MG/ML VIAL (J3301) As Ordered; -ZANA4TAB PO; +diazePAM 5 MG TAB As Ordered; +oxyCODONE 5MG TAB As Ordered
== END ==
LOC: M PAIN 10:30
DX: G89.29 Other chronic pain (principal); M47.816 Spondylosis without myelopathy or radiculopathy, lumbar region; M47.817 Spondylosis without myelopathy or radiculopathy, lumbosacral region; E11.9 Type 2 diabetes mellitus without complications; Z79.4 Long term (current) use of insulin; Z79.891 Long term (current) use of opiate analgesic; Z79.899 Other long term (current) drug therapy
CPT/HCPCS: J3301

== ENCOUNTER → 2018-02-06 | Outpatient (CLI) | payer MEDICARE | LOC: M RAD 10:35 | DX: M43.12 Spondylolisthesis, cervical region (principal); M50.21 Other cervical disc displacement, high cervical region | CPT/HCPCS: 72141 ==

== ENCOUNTER → 2018-02-06 | Outpatient (CLI) | payer MEDICARE | LOC: M PAIN 11:15 | DX: M53.3 Sacrococcygeal disorders, not elsewhere classified (principal); M54.5 Low back pain; E11.9 Type 2 diabetes mellitus without complications; Z79.4 Long term (current) use of insulin; Z79.891 Long term (current) use of opiate analgesic; Z79.899 Other long term (current) drug therapy; Z98.84 Bariatric surgery status; Z87.891 Personal history of nicotine dependence | CPT/HCPCS: G0463 ==

== ENCOUNTER → 2018-03-19 | Outpatient (CLI) | payer MEDICARE | LOC: M PAIN 11:00 | DX: M46.1 Sacroiliitis, not elsewhere classified (principal); M53.88 Other specified dorsopathies, sacral and sacrococcygeal region; G89.29 Other chronic pain; E11.9 Type 2 diabetes mellitus without complications; Z79.4 Long term (current) use of insulin; Z79.891 Long term (current) use of opiate analgesic; Z79.899 Other long term (current) drug therapy; Z98.84 Bariatric surgery status; Z87.891 Personal history of nicotine dependence | CPT/HCPCS: J3301 ==

== ENCOUNTER → 2018-04-10 | Outpatient (CLI) | payer MEDICARE | LOC: M PAIN 11:00 | DX: M53.3 Sacrococcygeal disorders, not elsewhere classified (principal); M54.5 Low back pain; E11.9 Type 2 diabetes mellitus without complications; Z79.891 Long term (current) use of opiate analgesic; Z79.4 Long term (current) use of insulin; Z79.899 Other long term (current) drug therapy; Z87.891 Personal history of nicotine dependence | CPT/HCPCS: G0463 ==

== ENCOUNTER → 2018-06-18 | Outpatient (REF) | payer MEDICARE ==
[2018-06-18 21:04] LABS: ESTIMATED AVERAGE GLUCOSE 151 MG/DL (60-110); HEMOGLOBIN A1c 6.9 %
== END ==
LOC: M SFHCLERA 15:11
DX: E11.9 Type 2 diabetes mellitus without complications (principal); Z23 Encounter for immunization
CPT/HCPCS: 83036

== ENCOUNTER → 2018-06-19 | Outpatient (CLI) | payer MEDICARE | LOC: M PAIN 10:45 | DX: M53.3 Sacrococcygeal disorders, not elsewhere classified (principal); M54.5 Low back pain; E11.9 Type 2 diabetes mellitus without complications; M54.2 Cervicalgia; Z87.891 Personal history of nicotine dependence; Z79.891 Long term (current) use of opiate analgesic; Z98.84 Bariatric surgery status; Z79.4 Long term (current) use of insulin; Z79.899 Other long term (current) drug therapy | CPT/HCPCS: G0463 ==

== ENCOUNTER → 2018-07-17 | Outpatient (CLI) | payer MEDICARE | LOC: M PAIN 11:30 | DX: M53.3 Sacrococcygeal disorders, not elsewhere classified (principal); M54.5 Low back pain; G89.29 Other chronic pain; E11.40 Type 2 diabetes mellitus with diabetic neuropathy, unspecified; M79.7 Fibromyalgia; M19.90 Unspecified osteoarthritis, unspecified site; Z79.4 Long term (current) use of insulin; Z79.891 Long term (current) use of opiate analgesic; Z79.899 Other long term (current) drug therapy; Z98.84 Bariatric surgery status | CPT/HCPCS: G0463 ==

== ENCOUNTER → 2018-09-18 | Outpatient (CLI) | payer MEDICARE | LOC: M PAIN 11:30 | DX: M53.3 Sacrococcygeal disorders, not elsewhere classified (principal); M54.5 Low back pain; G89.29 Other chronic pain; E11.40 Type 2 diabetes mellitus with diabetic neuropathy, unspecified; M19.90 Unspecified osteoarthritis, unspecified site; E66.01 Morbid (severe) obesity due to excess calories; Z68.39 Body mass index [BMI] 39.0-39.9, adult; Z79.84 Long term (current) use of oral hypoglycemic drugs; Z79.899 Other long term (current) drug therapy; Z98.84 Bariatric surgery status; Z87.891 Personal history of nicotine dependence | CPT/HCPCS: G0463 ==

== ENCOUNTER → 2018-11-03 | Outpatient (REF) | payer MEDICARE ==
[~2018-11-03] MED LIST changes: +ATOR1TAB19 PO; -BUPIVACAINE HCL 0.25% 30 ML VIAL As Ordered; +GABA-843 PO; +INSULANT SC; +INSURSD SC; -ISOVUE-M 300 61% 15ML VIAL (Q9967) As Ordered; -LIDOCAINE 1% SDV INJ 30 ML VIAL As Ordered; +METF500T4 PO; +NAPR-885 PO; +NORC10TA21 PO; +PANT40TA3 PO; +SUCR1TA PO; +TIZA4CAP PO; +TRAM50TA2 PO; +TRAZ-163 PO; -TRIAMCINOLONE ACETONIDE SUSP 40 MG/ML VIAL (J3301) As Ordered; +ZANA4TAB PO; -diazePAM 5 MG TAB As Ordered; -oxyCODONE 5MG TAB As Ordered
[2018-11-03 16:57] LABS: BASO % 0.3 % (0.0-1.0); EOS % 0.3 % (0.0-3.0); HEMATOCRIT 36.4 % (36.0-47.0); LYMPH # 1.6 10^3/uL (1.5-4.5); LYMPH % 12.9 % (24.0-44.0); MEAN CORPUSCULAR HGB CONC 30.2 g/dl (32.0-36.5); MONO # 0.6 10^3/uL (0.0-0.8); MONO % 4.6 % (0.0-5.0); NEUTROPHILS # 10.1 10^3/uL (1.8-7.7); NEUTROPHILS % 81.7 % (36.0-66.0); PLATELET COUNT, AUTOMATED 390 10^3/uL (150-450); RED BLOOD COUNT 4.79 10^6/uL (4.00-5.40); WHITE BLOOD COUNT 12.4 10^3/uL (4.0-10.0)
[2018-11-03 17:05] LABS: ALT/SGPT 17 U/L (12-78); BILIRUBIN,TOTAL 0.5 MG/DL (0.2-1.0); BLOOD UREA NITROGEN 12 MG/DL (7-18); CALCIUM LEVEL 9.4 MG/DL (8.5-10.1); CARBON DIOXIDE LEVEL 26 MEQ/L (21-32); CHLORIDE LEVEL 103 MEQ/L (98-107); CHOLESTEROL LEVEL 159 MG/DL (<200); CHOLESTEROL RISK RATIO 2.523 (<5); CREATININE FOR GFR 0.87 MG/DL (0.55-1.30); GLOMERULAR FILTRATION RATE > 60.0 (>51); GLUCOSE, FASTING 138 MG/DL (70-100); HDL CHOLESTEROL 63 MG/DL (>40); LDL CHOLESTEROL 68 MG/DL (<100); NON-HDL-C 96 MG/DL; POTASSIUM SERUM 4.9 MEQ/L (3.5-5.1); SODIUM LEVEL 139 MEQ/L (136-145); TOTAL PROTEIN 7.8 GM/DL (6.4-8.2); TRIGLYCERIDES LEVEL 142 MG/DL (<150)
[2018-11-03 17:18] LABS: MALB URINE SIEMENS 37.2 MG/L; MAU/CREAT RATIO 12.8 MCG/MG (0.0-30.0)
[2018-11-03 17:32] LABS: HEMOGLOBIN A1c 7.5 %
== END ==
LOC: M SFHCLERA 12:12
PROVIDERS: ATTEND Family Medicine
DX: E11.9 Type 2 diabetes mellitus without complications (principal)
CPT/HCPCS: 80053; 80061; 82043; 83036; 84443; 85025; 90682; G0008; G0463

== ENCOUNTER → 2018-11-20 | Outpatient (CLI) | payer MEDICARE ==
--- NOTE | 2018-11-26 16:53 | REPMRS ---
Patient History The patient states she has not had a clinical breast exam in over a year. Patient is postmenopausal and is nulliparous. Family history of liver cancer at age 60 in paternal grandmother, prostate cancer at age 80 in paternal grandfather. 3D TOMOSYNTHESIS WAS PERFORMED. Digital Mammo Screening Bilat: November 20, 2018 - Exam #: [id number] Bilateral CC and MLO view(s) were taken. Technologist: Mariely Soler Technologist Prior study comparison: September 26, 2015, bilateral digital mammo screening bilat, performed at [place], [place]. FINDINGS: There are scattered fibroglandular densities. There has been no change in the appearance of the mammogram from the prior studies. There is a mild amount of residual fibroglandular tissue which is fairly symmetric. There is no interval development of dominant mass, architectural distortion, or clustered microcalcification suggestive of malignancy. Assessment: BI-RADS/ACR category 1 mammogram. Negative Mammogram. Recommendation Routine screening mammogram in 1 year (for women over age 40). This mammogram was interpreted with the aid of an FDA-approved computer-aided dectection system. Electronically Signed By: Neal Arteaga MD 11/26/18 0793
== END ==
LOC: M RAD 12:05
PROVIDERS: ATTEND Family Medicine
DX: Z12.31 Encounter for screening mammogram for malignant neoplasm of breast (principal); Z80.42 Family history of malignant neoplasm of prostate; Z80.0 Family history of malignant neoplasm of digestive organs

== ENCOUNTER → 2018-12-18 | Outpatient (CLI) | payer MEDICARE ==
--- NOTE | 2018-12-19 23:42 | ECWPNPC ---
PATIENT NAME: ANGEL WILSON : 1960 GENDER: FEMALE VISIT DATE: 12/18/2018 DISCHARGE DATE: 12/18/18 1130 VISIT LOCKED DATE TIME: PHYSICIAN: RADHA CRUZ RESOURCE: RADHA CRUZ REASON FOR APPOINTMENT 1. BACK HISTORY OF PRESENT ILLNESS HISTORY OF PRESENT ILLNESS: HERE FOR F/U AND MEDICINE MANAGEMENT OF CHRONIC LOW BACK PAIN AND GENERALIZED JOINT PAIN.USING BELBUCA 300MG BID. NOTICING IMPROVEMENT IN PAIN AND IMPROVED ACTIVITY TOLERANCE.HAS BEEN ABLE TO DECREASE OXYCODONE 5MG TO ONE TAB. PER DAY.RATING PAIN 7/10 VAS.HAS RHEUMATOLOGY APT. PENDING.DISCUSSED MEDICATION OPTIONS.HAS TRIALED MULTIPLE PAIN MEDICATIONS AND PROCEDURES OVER THE YEARS WITHOUT IMPROVEMENT IN PAIN. PAIN THE PATIENT DESCRIBES THE PAIN... THE PATIENT DESCRIBES THE PAIN... THE PATIENT DESCRIBES THE PAIN... THE PATIENT DESCRIBES THE PAIN... FALL RISK SCREENING: SCREENING : NO FALLS IN THE PAST YEAR. CURRENT MEDICATIONS TAKING B-50 COMPLEX - TABLET EXTENDED RELEASE 1 CAP ORALLY DAILY TAKING SUMATRIPTAN SUCCINATE 50 MG TABLET 1 TABLET NEEDED ORALLY TWICE A DAY TAKING HAIR SKIN AND NAILS FORMULA - TABLET 1 CAP ORALLY THREE TIMES DAILY TAKING CPAP MASK DIRECTED _ DAILY ICD10 G47.33 TAKING CEPHALEXIN 500MG CAPSULE 1 CAPSULE ORALLY THREE TIMES DAILY NEEDED TAKING DIFLUCAN 150 MG TABLET 1 TABLET ORALLY QDAY X 1 DAY, REPEAT IN 1 WEEK IF NECESSARY TAKING VITAMIN C 1000 MG TABLET 1 TABLET ORALLY BID TAKING ONETOUCH VERIO - STRIP DIRECTED IN VITRO QID ICD10 Z79 TAKING TRAZODONE HCL 100 MG TABLET 1 TABLET AT BEDTIME ORALLY ONCE A DAY TAKING BD INSULIN SYRINGE 30G X 1/2 MISCELLANEOUS 1 INJECTION _ FOUR TIMES DAILY ICD10 E11.65 TAKING ZANAFLEX 4 MG TABLET 1 TABLET NEEDED ORALLY THREE TIMES A DAY PRN TAKING BELBUCA 300 MCG FILM 1 FILM TO THE GUM BUCALLY BID MDD2 TAKING METFORMIN HCL ER 500 MG TABLET 24 HOUR SUSTAINED RELEASE TAKE 2 TABLETS BY MOUTH TWO TIMES DAILY TAKING NOVOLIN R 100 UNIT/ML SOLUTION SLIDING SCALE INJECTION THREE TO FOUR TIMES DAILY TAKING NOVOLIN N 100 UNIT/ML SUSPENSION 20 UNITS SUBCUTANEOUS BEFORE BEDTIME TAKING ATORVASTATIN CALCIUM 10 MG TABLET 1 TABLET ORALLY ONCE A DAY TAKING PANTOPRAZOLE SODIUM 40 MG TABLET DELAYED RELEASE 1 TABLET ORALLY ONCE A DAY TAKING FERROUS SULFATE 325 (65 FE) MG TABLET 1 TABLET ORALLY TWICE A DAY TAKING LISINOPRIL 2.5 MG TABLET 1 TABLET ORALLY ONCE A DAY TAKING OXYCODONE HCL 5 MG TABLET 1 TABLET NEEDED ORALLY Q8H PRN MDD MDD2 TAKING MULTI VITAMIN - TABLET 1 TABLET ORALLY ONCE A DAY, NOTES: PEAK PERFORMANCE MULTIVIAMIN FOR WOMEN NOT-TAKING TIZANIDINE HCL 4 MG TABLET 1 TABLET NEEDED ORALLY THREE TIMES A DAY NOT-TAKING LYRICA 100 MG CAPSULE 1 ORALLY BID MDD2 DISCONTINUED CARAFATE 1 GM TABLET TAKE 1 TABLET BY MOUTH 3 TIMES A DAY ON AN EMPTY STOMACH MEDICATION LIST REVIEWED AND RECONCILED WITH THE PATIENT PAST MEDICAL HISTORY CHRONIC NECK PAIN CHRONIC LBP, ON DISABILITY FOR IT, ON CHRONIC OPIATES BY PAIN CLINIC TYPE 2 DIABETES ON INSULIN AND METFORMIN, A1C 7.10 FEB 2018 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 SURGICAL HISTORY GASTRIC BYPASS 01/2013 FIBROUS TUMOR REMOVALS (47 OVER HER LIFETIME) MULTIPLE TONSILECTOMY 2010 ULCER REPAIR 07/19/17 FAMILY HISTORY FATHER: ALIVE, DIAGNOSED WITH DIABETES, HEART DISEASE MOTHER: ALIVE SIBLINGS: DIAGNOSED WITH DIABETES PATERNAL GRAND MOTHER: DIAGNOSED WITH DIABETES, CANCER MATERNAL GRAND FATHER: DIAGNOSED WITH HEART DISEASE, CANCER 2 BROTHER(S) , 1 SISTER(S) - HEALTHY. MOM--SKIN CA, ASTHMATYPE 2 DIABETESPGM- PANCREATIC CANCERMGF- LUNG CANCER. SOCIAL HISTORY GENERAL: TOBACCO USE ARE YOU A:FORMER SMOKER HOW LONG HAS IT BEEN SINCE YOU LAST SMOKED?> 10 YEARS LATEX QUESTIONNAIRE LATEX ALLERGY : HAVE YOU EVER DEVELOPED ANY TYPE OF REACTION AFTER HANDLING LATEX PRODUCTS SUCH RUBBER GLOVES, CONDOMS, DIAPHRAGMS, BALLOONS, SOCKS, OR UNDERWEAR?NO LATEX ALLERGY : HAVE YOU EVER DEVELOPED ANY TYPE OF REACTION DURING OR AFTER DENTAL APPOINTMENT, VAGINAL/RECTAL EXAMINATION, SURGICAL PROCEDURE, OR ANY OTHER EXPOSURE?NO LATEX RISK : HAVE YOU EVER HAD ANY DIFFICULTY BREATHING OR HIVES AFTER EATING OR HANDLING ANY FRUITS, OR VEGETABLES; SUCH KIWI, BANANAS, STONE FRUITS, OR CHESTNUTSNO LATEX RISK : DO YOU HAVE A PREVIOUS PERSONAL HISTORY OF MORE THAN NINE SURGERIES, SPINA BIFIDA, OR REPEATED CATHERTIZATIONS? NO LATEX RISK : ARE YOU FREQUENTLY EXPOSED TO LATEX PRODUCTS IN YOUR OCCUPATION?NO DATE ASKED : 12/18/2018 LUNG CANCER SCREENING SMOKING STATUS:FORMER SMOKER BMI CARE GOAL FOLLOW-UP ABOVE NORMAL BMI FOLLOW-UPDIETARY MANAGEMENT EDUCATION, GUIDANCE, AND COUNSELING ALCOHOL SCREENING DID YOU HAVE A DRINK CONTAINING ALCOHOL IN THE PAST YEAR?YES HOW OFTEN DID YOU HAVE SIX OR MORE DRINKS ON ONE OCCASION IN THE PAST YEAR?NEVER (0 POINTS) HOW MANY DRINKS DID YOU HAVE ON A TYPICAL DAY WHEN YOU WERE DRINKING IN THE PAST YEAR?1 OR 2 (0 POINTS) HOW OFTEN DID YOU HAVE A DRINK CONTAINING ALCOHOL IN THE PAST YEAR?NEVER (0 POINTS) POINTS0 INTERPRETATIONNEGATIVE RECREATIONAL DRUG USE DRUG USE?NO CAFFEINE CAFFEINE USE?YES COFFEE, SODA SEXUAL HX HAD SEX IN THE LAST 12 MONTHS (VAGINAL, ORAL, OR ANAL)?NO HAVE YOU EVER HAD AN STD?NO HIV / HEP-C SCREENING HIV TEST OFFERED TO PATIENT:YES DATE OFFERED:06/18/2018 TEST ACCEPTED:NO HEP-C TEST OFFERED TO PATIENT:YES DATE OFFERED:06/18/2018 REASON:PATIENT DECLINED TEST ACCEPTED:NO REASON:PATIENT DECLINED BROCHURE PROVIDED TO PATIENTYES ZOROASTRIANISM [id number] MOSQUE LANGUAGE LANGUAGES SPOKEN:PAPUA NEW GUINEAN EDUCATION LEVEL OF EDUCATION:NOT FINISHED COLLEGE LEARNING BARRIERS / SPECIAL NEEDS CHANGE FROM LAST VISIT?NO BARRIERS TO LEARNING?NO HEARING IMPAIRED?NO VISION IMPAIRED?YES COGNITIVELY IMPAIRED?NO :CORRECTIVE LENSES READINESS TO LEARN?YES LEARNING PREFERENCES?NO LEARNING CAPABILITIES PRESENT?YES EMOTIONAL BARRIERS?NO SPECIAL DEVICES?YES :[employer] [facility] [facility] [employer] ASSEMBLER NEEDED?NO DOMESTIC VIOLENCE DO YOU FEEL SAFE IN YOUR ENVIRONMENT?YES OCCUPATION: DISABLED. DIET: NO CONCENTRATED SWEETS., CARBOHYDRATE CONTROLLED. EXERCISE: DAILY. MARITAL STATUS: . OTHERS AT HOME: SPOUSE. PAIN CLINIC PFS, CLERGY, PUBLIC HEALTH REFERRALS HAS THE PATIENT BEEN EDUCATED REGARDING HIS/HER PLAN OF CARE?YES HAS THE PATIENT BEEN EDUCATED REGARDING PAIN, THE RISK FOR PAIN, THE IMPORTANCE OF EFFECTIVE PAIN MANAGEMENT, AND THE PAIN ASSESSMENT PROCESS?YES ADVANCE DIRECTIVE ADVANCE DIRECTIVE DISCUSSED WITH PATIENT:YES PT STATES SHE DOES NOT HAVE HCP AND DECLINES INFO AND ASSISTANCE AT THIS TIME. 12/18/18 REVIEWED WITH PATIENT 09/18/18 1158 JSREVIEWED WITH PT 12/18/18 1046 BV. HOSPITALIZATION/MAJOR DIAGNOSTIC PROCEDURE SURGICAL BLEEDING ULCER 07/2017 REVIEW OF SYSTEMS REVIEWED BY: PROVIDER: RADHA CARLSON . CONSTITUTIONAL: ANY CHANGE IN YOUR MEDICAL CONDITION? YES, DIAGNOSED ANEMIC IN [facility], WAS STARTED ON IRON SUPPLEMENT . CHILLS NO . FEVER NO . INFECTION: DO YOU HAVE NEW INFECTIONS? NO . DO YOU HAVE HISTORY OF MRSA? NO . MUSCULOSKELETAL: ANY NEW PATTERNS OF PAIN OR NUMBNESS? NO . GASTROENTEROLOGY: ANY NEW CHANGE IN BOWEL CONTROL? NO . GENITOURINARY: ANY NEW CHANGE IN BLADDER CONTROL? NO . IS THERE A CHANCE YOU COULD BE ? NO . HEMATOLOGY/LYMPH: DO YOU TAKE ANY BLOOD THINNERS? (FOR EXAMPLE- COUMADIN, PLAVIX, AGGRENOX, PLATEL, PRADAXA, OR XARELTO) NO . WHEN WAS YOUR LAST DOSE? DATE: TIME: . NEUROLOGY: HAVE YOU FALLEN IN THE PAST 12 MONTHS? NO . ANY NEW EXTREMITY NUMBNESS OR WEAKNESS? NO . CARDIOLOGY: DO YOU HAVE A PACEMAKER OR DEFIBRILLATOR? NO . RESPIRATORY: HAVE YOU BEEN SICK IN THE PAST WEEK? YES, PT COMPLAINS OF SORE THROAT AND CONGESTION ABOUT A WEEK AGO. STATES SYMPTOMS HAVE SINCE RESOLVED . FEVER YES, ABOUT A WEEK AGO. DENIES ANY FEVER FOR THE PAST COUPLE DAYS . FLU LIKE SYMPTOMS? NO . COUGH NO . INTEGUMENTARY: DO YOU HAVE ANY RASHES OR OPEN SORES? NO . ALLERGIC/IMMUNO: ARE YOU ALLERGIC TO IV DYE? NO . ANY NEW ALLERGIES? NO . PSYCHIATRIC: DO YOU HAVE THOUGHTS OF HURTING YOURSELF OR SOMEONE ELSE? NO . ARE YOU ABUSED, NEGLECTED, OR IN AN UNSAFE ENVIRONMENT? NO . ENDOCRINOLOGY: ARE YOU DIABETIC? YES . OTHER: DO YOU NEED ANY PRESCRIPTIONS? YES, BELBUCA . IF YES, PLEASE LIST: ____ . ANY NEW PROBLEMS WITH YOUR MEDICATIONS? NO . WHEN DID YOU LAST EAT? ____ . WHEN DID YOU LAST DRINK? ____ . WHAT DID YOU LAST DRINK? ____ . NAME OF PERSON DRIVING YOU HOME? ____ . DO YOU HAVE ANY OTHER QUESTIONS OR CONCERNS NO . VITAL SIGNS WT 258.8 LBS, HT 69 IN, BMI 38.21 INDEX, BP 172/75 MM HG, HR 78 /MIN, RR 16 /MIN, TEMP 96.0 F, OXYGEN SAT % 97%, NA INITIALS AW 1032, REVIEWED BY: BV. EXAMINATION GENERAL EXAMINATION: GENERAL APPEARANCE:ALERT/UNCOMFORTABLE. PSYCHAFFECT NORMAL. LUNGS:LUNG OLSEN ARE CLEAR TO AUSCULTATION BILATERALLY. GOOD MOVEMENT OF AIR. HEART:S1, S2 IN A REGULAR RATE AND RHYTHM. NO SIGNIFICANT MURMURS, RUBS OR GALLOPS NOTED. ASSESSMENTS LOW BACK PAIN AT MULTIPLE SITES - M54.5 (PRIMARY) CHRONIC PRESCRIPTION OPIATE USE - Z79.891 TREATMENT LOW BACK PAIN AT MULTIPLE SITES NOTES: [facility] NARCOTIC AGREEMENT WAS UPDATED REVIEWED AND SIGNED TODAY BY THE PATIENT. SEE ATTACHED DOCUMENT FOR FULL DETAILS; SPECIFIC ISSUES WERE REVIEWED: 1) KEEP PAIN MEDS IN THEIR ORIGINAL BOTTLES AND ANY WEEKLY PLANNERS ARE TO BE BROUGHT TO THE PAIN CENTER AT EVERY VISIT. 2) THE PATIENT IS NOT TO INCREASE DOSING OR TIMING OF THEIR PAIN MEDICATION WITHOUT SPECIFIC DIRECTION OF THEIR PAIN CENTERPROVIDER (NOT ER OR OTHER PROVIDERS). 3) ALL PAIN MEDS ARE TO BE KEPT SECURED, IN A LOCKED BOX. 4) NO PAIN MEDS ARE TO BE SHARED WITH ANY OTHER PERSON FOR ANY REASON. 5) NO PAIN MEDS MAY BE TAKEN FROM ANY FRIENDS OR RELATIVES FOR ANY REASON 6) NO MEDS OR SUBSTANCES WHICH ARE NOT LEGAL ARE TO BE USED- NO MARIJUANA, NO COCAINE, AMPHETAMINES, HEROIN, OR OTHERS ARE EVER TO BE USED. 7)URINE TESTING IS DONE TO ACCOUNT FOR MEDS AND SUBSTANCES BEING TAKEN AND WILL BE DONE RANDOMLY., RISKS AND BENEFITS OF NARCOTIC/OPIOD MEDICATIONS WERE REVIEWED WITH PATIENT - THIS INCLUDES BUT IS NOT LIMITED TO RISK OF DEPENDANCE/DEVELOPMENT OF ADDICTION, MOOD DISTURBANCE AND DEPRESSION, OSTEOPOROSIS, HORMONAL AND LABIDAL CHANGES, RESPIRATORY DEPRESSION AND . PATIENT IS ADVISED NOT TO DRIVE OR DRINK ALCOHOL WHILE ON THESE MEDICATIONS. PROCEDURE CODES FA211 ESTABILISHED PATIENT [facility] FACILITY CHARGE DISPOSITION & COMMUNICATION FOLLOW UP 3 MONTHS ELECTRONICALLY SIGNED BY ALDO RUBIN ON 12/18/2018 AT 02:48 PM EST DISCLAIMER : THIS IS A VISIT SUMMARY EXTRACTED FROM THE [employer] CHART. IT IS NOT A COPY OF THE [employer] PROGRESS NOTE. DERRELLD
== END ==
LOC: M PAIN 11:30
PROVIDERS: ATTEND Nurse Practitioner Family
DX: M54.5 Low back pain (principal); G89.29 Other chronic pain; E11.9 Type 2 diabetes mellitus without complications; Z98.84 Bariatric surgery status; G47.33 Obstructive sleep apnea (adult) (pediatric); M79.7 Fibromyalgia; M19.90 Unspecified osteoarthritis, unspecified site; D64.9 Anemia, unspecified; Z87.891 Personal history of nicotine dependence; Z79.4 Long term (current) use of insulin; Z79.899 Other long term (current) drug therapy

== ENCOUNTER → 2018-12-22 | Outpatient (REF) | payer MEDICARE ==
[2018-12-26 14:37] LABS: HPV HYBRID CAPTURE II Negative (Negative)
== END ==
LOC: M SFHCLERA 10:00
PROVIDERS: ATTEND Family Medicine
DX: Z12.4 Encounter for screening for malignant neoplasm of cervix (principal)
CPT/HCPCS: 87624; G0123

== ENCOUNTER → 2018-12-25 | Outpatient (CLI) | payer MEDICARE ==
--- NOTE | 2018-12-29 16:20 | SLEEPCENT ---
DATE OF PROCEDURE: 12/25/2018 ORDERED BY: ALDO Mueller Nocturnal polysomnography was performed for evaluation of sleep physiology in this patient with a prior history of obstructive sleep apnea syndrome who is experiencing excessive somnolence and nonrestorative sleep and has comorbidities of diabetes and chronic pain. 7 hours and 27 minutes of data were reviewed. There were 399 minutes of sleep identified. Sleep latency was short at 5 minutes. Rapid eye movement (REM) latency was delayed at 176 minutes. Sleep architecture was fair with 2 REM cycles. Some fragmentation was seen. Overall sleep efficiency was 91.1%. The electrocardiogram showed sinus rhythm with an average heart rate of 55 beats per minute. Heart rate ranged from 40-75 beats per minute. EEG showed normal waveforms with no focal events and normal waveforms for awake and sleep. There were 56 respiratory events identified of 10 seconds in duration or greater for an apnea-hypopnea index of 8.4. The events were obstructive, not exclusive to sleep stage or body posture. Arousals resulted 1.7 times per hour and oxygen desaturations were seen into the upper 70s. There was minimal activity in the limb leads. Snoring was noted and remaining measures of sleep physiology were normal. IMPRESSION: Obstructive sleep apnea syndrome (G47.33). Apnea-hypopnea index 8.4. RECOMMENDATIONS: The patient should be encouraged to return to the sleep disorder center for pressure therapy. In the interimm, alcohol and sedative avoidance should be practiced and caution exercised during the operation of motor vehicles.
== END ==
LOC: M SLEEP 19:37
PROVIDERS: ATTEND Nurse Practitioner Family
DX: G47.33 Obstructive sleep apnea (adult) (pediatric) (principal)

== ENCOUNTER → 2019-01-17 | Outpatient (CLI) | payer MEDICARE ==
[~2019-01-17] MED LIST changes: +CVS-161 PO; +FERR1TAB8 PO; +LISI-542 PO; -NORC10TA21 PO; +NORC1TAB5 PO; +NOVO1INJ4 SC; +OXYC5CAP56 PO; +SUMA100T2 PO; +VITA500T PO; +VITATAB73 PO; +[UNRECOGNIZED DRUG - CODE] BU
--- NOTE | 2019-01-19 07:21 | SLEEPCENT ---
DATE OF PROCEDURE: 01/17/2019 ORDERED BY: Flor Shah Nocturnal polysomnography was performed for the titration of pressure therapy in this patient with obstructive sleep apnea syndrome and apnea-hypopnea index of 8.4. For testing, a ResMed AirFit F20 full face mask of large size was used and 8 cm of water pressure was initially applied to the circuit and the lights were extinguished. 6 hours and 53 minutes of data were reviewed. There were 352 minutes of sleep identified. Sleep latency was normal at 14 minutes. Rapid eye movement (REM) sleep was delayed at 265 minutes. Sleep architecture showed poor progression, but there were 2 REM cycles late in the study. Overall sleep efficiency was 86.5%. The electrocardiogram showed a sinus rhythm with an average heart rate of 58 beats per minute. Electroencephalogram (EEG) showed normal waveforms for awake and sleep. Respiratory events were well palliated with CPAP at a pressure of +9. Oxygen saturations were maintained at 90% plus and remaining measures of sleep physiology were normal. IMPRESSION: Obstructive sleep apnea syndrome (G47.33). RECOMMENDATION: Nightly use of pressure therapy at 9 cm of water.
== END ==
LOC: M SLEEP 20:00
PROVIDERS: ATTEND Nurse Practitioner Family
DX: G47.33 Obstructive sleep apnea (adult) (pediatric) (principal)

== ENCOUNTER 2019-01-29 08:21 | Day surgery (SDC) | payer MEDICARE ==
[~2019-01-29] VITALS: Ht 177.8 cm; Wt 117.2 kg
[~2019-01-29 08:21] MED LIST changes: +LIDOCAINE 2% INJ 100 MG/5 ML SDV (FOR ANES.) As Ordered ONE; +NS 1,000 ML IV SCH; +PROPOFOL 200 MG/20 ML VIAL As Ordered ONE
[2019-01-29] MEDS ORDERED: PROPOFOL 200 MG/20 ML VIAL As Ordered ONE (10:28)
--- NOTE | 2019-01-29 10:59 | ROOR ---
Patient Name: Lisa Vasquez Procedure Date: 01/29/2019 9:55 AM Date of : 1960 Age: 58 Room: [facility] Gender: Female Note Status: Finalized Procedure: Upper GI endoscopy Indications: Follow-up of gastric ulcer Providers: Alon Ludwig MD Referring MD: Neal FERGUSON MD Requesting Provider: Medicines: Monitored Anesthesia Care Complications: No immediate complications. Procedure: Pre-Anesthesia Assessment: - Prior to the procedure, a History and Physical was performed, and patient medications and allergies were reviewed. The patient is competent. The risks and benefits of the procedure and the sedation options and risks were discussed with the patient. All questions were answered and informed consent was obtained. Patient identification and proposed procedure were verified by the physician, the nurse and the anesthesiologist in the procedure room. Mental Status Examination: alert and oriented. Airway Examination: normal oropharyngeal airway and neck mobility. Respiratory Examination: clear to auscultation. CV Examination: normal. Prophylactic Antibiotics: The patient does not require prophylactic antibiotics. Prior Anticoagulants: The patient has taken no previous anticoagulant or antiplatelet agents. ASA Grade Assessment: II - A patient with mild systemic disease. After reviewing the risks and benefits, the patient was deemed in satisfactory condition to undergo the procedure. The anesthesia plan was to use monitored anesthesia care (MAC). Immediately prior to administration of medications, the patient was re-assessed for adequacy to receive sedatives. The heart rate, respiratory rate, oxygen saturations, blood pressure, adequacy of pulmonary ventilation, and response to care were monitored throughout the procedure. The physical status of the patient was re-assessed after the procedure. The Endoscope was introduced through the mouth, and advanced to the efferent jejunal loop. The upper GI endoscopy was accomplished without difficulty. The patient tolerated the procedure well. Findings: The examined esophagus was normal. Evidence of a Maddison-en-Y gastrojejunostomy was found. The gastrojejunal anastomosis was characterized by healthy appearing mucosa. This was traversed. The jejunojejunal anastomosis was characterized by healthy appearing mucosa. The hkxhynku-yr-ystihyx limb was not examined as it could not be found. Patchy mild inflammation characterized by erythema, friability and granularity was found in the entire examined stomach. Biopsies were taken with a cold forceps for histology. For hemostasis, three hemostatic clips were successfully placed. There was no bleeding at the end of the procedure. Verification of patient identification for the specimen was done by the physician and nurse using the patient's name, date and medical record number. Estimated blood loss was minimal. The examined jejunum was normal. Biopsies for histology were taken with a cold forceps for evaluation of celiac disease. Impression: - Normal esophagus. - Maddison-en-Y gastrojejunostomy with gastrojejunal anastomosis characterized by healthy appearing mucosa. - Gastritis. Biopsied. Clips were placed. - Normal examined jejunum. Biopsied. Recommendation: - Patient has a contact number available for emergencies. The signs and symptoms of potential delayed complications were discussed with the patient. Return to normal activities tomorrow. Written discharge instructions were provided to the patient. - Resume previous diet. - Continue present medications. - Await pathology results. - Based on the biopsy results you will receive a phone call from GI clinic in 2-3 weeks to review the pathology results AND/OR your results will be faxed to your Primary care physician. - Return to primary care physician. Alon Ludwig MD Alon Ludwig MD 01/29/2019 10:59:21 AM Electronically signed by Alon Ludwig MD Number of Addenda: 0 Note Initiated On: 01/29/2019 9:55 AM Estimated Blood Loss: Estimated blood loss was minimal.
[2019-01-29 11:15] VITALS: BP 152/87
--- NOTE | 2019-01-29 11:29 | ROOR ---
Patient Name: Lisa Vasquez Procedure Date: 01/29/2019 9:57 AM Date of : 1960 Age: 58 Room: [facility] Gender: Female Note Status: Finalized Procedure: Colonoscopy Indications: Screening for colorectal malignant neoplasm Providers: Alon Ludwig MD Referring MD: Neal FERGUSON MD Requesting Provider: Medicines: Monitored Anesthesia Care Complications: No immediate complications. Procedure: Pre-Anesthesia Assessment: - Prior to the procedure, a History and Physical was performed, and patient medications and allergies were reviewed. The patient is competent. The risks and benefits of the procedure and the sedation options and risks were discussed with the patient. All questions were answered and informed consent was obtained. Patient identification and proposed procedure were verified by the physician, the nurse and the anesthesiologist in the procedure room. Mental Status Examination: alert and oriented. Airway Examination: normal oropharyngeal airway and neck mobility. Respiratory Examination: clear to auscultation. CV Examination: normal. Prophylactic Antibiotics: The patient does not require prophylactic antibiotics. Prior Anticoagulants: The patient has taken no previous anticoagulant or antiplatelet agents. ASA Grade Assessment: II - A patient with mild systemic disease. After reviewing the risks and benefits, the patient was deemed in satisfactory condition to undergo the procedure. The anesthesia plan was to use monitored anesthesia care (MAC). Immediately prior to administration of medications, the patient was re-assessed for adequacy to receive sedatives. The heart rate, respiratory rate, oxygen saturations, blood pressure, adequacy of pulmonary ventilation, and response to care were monitored throughout the procedure. The physical status of the patient was re-assessed after the procedure. The Colonoscope was introduced through the anus and advanced to the cecum, identified by appendiceal orifice and ileocecal valve. The colonoscopy was performed without difficulty. The patient tolerated the procedure well. The quality of the bowel preparation was fair and not adequate to identify polyps 6 mm and larger in size. The ileocecal valve, appendiceal orifice, and rectum were photographed. Scope insertion time was 5 minutes. Scope withdrawal time was 10 minutes. The total duration of the procedure was 15 minutes. Findings: The perianal and digital rectal examinations were normal. Three sessile polyps were found in the rectum. The polyps were 4 to 8 mm in size. These polyps were removed with a cold snare. Resection and retrieval were complete. Verification of patient identification for the specimen was done by the physician and nurse using the patient's name, date and medical record number. Estimated blood loss was minimal. A large amount of semi-liquid stool was found from sigmoid to ascending colon, interfering with visualization. Lavage of the area was performed using a large amount of sterile water, resulting in clearance with fair visualization. Non-bleeding external and internal hemorrhoids were found during retroflexion. The hemorrhoids were medium-sized. Impression: - Preparation of the colon was fair. - Preparation of the colon was inadequate. - Three 4 to 8 mm polyps in the rectum, removed with a cold snare. Resected and retrieved. - Stool from sigmoid to ascending colon. - Non-bleeding external and internal hemorrhoids. Recommendation: - Patient has a contact number available for emergencies. The signs and symptoms of potential delayed complications were discussed with the patient. Return to normal activities tomorrow. Written discharge instructions were provided to the patient. - High fiber diet. - Continue present medications. - Await pathology results. - Repeat colonoscopy in 1 year because the bowel preparation was poor and for surveillance based on pathology results. - Based on the biopsy results you will receive a phone call from GI clinic in 2-3 weeks to review the pathology results AND/OR your results will be faxed to your Primary care physician. - Return to GI clinic in 1 year. - Based on the biopsy results you will receive a phone call from GI clinic in 2-3 weeks to review the pathology results AND/OR your results will be faxed to your Primary care physician. - Return to primary care physician. Alon Ludwig MD Alon Ludwig MD 01/29/2019 11:29:27 AM Electronically signed by Alon Ludwig MD Number of Addenda: 0 Note Initiated On: 01/29/2019 9:57 AM Estimated Blood Loss: Estimated blood loss was minimal.
== END 2019-01-29 11:41 | disposition home or self-care (01) ==
LOC: M OPP 08:21
PROVIDERS: ATTEND Internal Medicine Gastroenterology
DX: Z12.11 Encounter for screening for malignant neoplasm of colon (principal); K64.8 Other hemorrhoids; K62.1 Rectal polyp; Z98.0 Intestinal bypass and anastomosis status; K29.70 Gastritis, unspecified, without bleeding; K25.9 Gastric ulcer, unspecified as acute or chronic, without hemorrhage or perforation; G47.30 Sleep apnea, unspecified; Z79.891 Long term (current) use of opiate analgesic; Z79.899 Other long term (current) drug therapy; Z98.84 Bariatric surgery status

== ENCOUNTER → 2019-03-19 | Outpatient (CLI) | payer MEDICARE ==
[~2019-03-19] MED LIST changes: -LIDOCAINE 2% INJ 100 MG/5 ML SDV (FOR ANES.) As Ordered ONE; -NS 1,000 ML IV SCH; -PROPOFOL 200 MG/20 ML VIAL As Ordered ONE
--- NOTE | 2019-04-06 02:08 | ECWPNPC ---
PATIENT NAME: ANGEL WILSON : 1960 GENDER: FEMALE VISIT DATE: 03/19/2019 DISCHARGE DATE: 03/19/19 1223 VISIT LOCKED DATE TIME: PHYSICIAN: RADHA CRUZ RESOURCE: RADHA CRUZ REASON FOR APPOINTMENT 1. JOINT PAIN HISTORY OF PRESENT ILLNESS HISTORY OF PRESENT ILLNESS: HERE FOR F/U AND MEDICINE MANAGEMENT OF CHRONIC LOW BACK PAIN AND GENERALIZED JOINT PAIN.USING BELBUCA 300MG BID. RATING PAIN 8/10 VAS.[facility] . DIAGNOSED WITH FIBROMYALGIA.DISCUSSED MEDICATION OPTIONS.HAS TRIALED MULTIPLE PAIN MEDICATIONS AND PROCEDURES OVER THE YEARS WITHOUT IMPROVEMENT IN PAIN.DISCUSSED TRIAL OF GABAPENTIN. PAIN THE PATIENT DESCRIBES THE PAIN... THE PATIENT DESCRIBES THE PAIN... THE PATIENT DESCRIBES THE PAIN... THE PATIENT DESCRIBES THE PAIN... THE PATIENT DESCRIBES THE PAIN... FALL RISK SCREENING: SCREENING :NO FALLS REPORTED IN THE LAST YEAR CURRENT MEDICATIONS TAKING B-50 COMPLEX - TABLET EXTENDED RELEASE 1 CAP ORALLY DAILY TAKING HAIR SKIN AND NAILS FORMULA - TABLET 1 CAP ORALLY THREE TIMES DAILY TAKING CPAP MASK DIRECTED _ DAILY ICD10 G47.33 TAKING VITAMIN C 1000 MG TABLET 1 TABLET ORALLY BID TAKING ONETOUCH VERIO - STRIP DIRECTED IN VITRO QID ICD10 Z79 TAKING BD INSULIN SYRINGE 30G X 1/2 MISCELLANEOUS 1 INJECTION _ FOUR TIMES DAILY ICD10 E11.65 TAKING ZANAFLEX 4 MG TABLET 1 TABLET NEEDED ORALLY THREE TIMES A DAY PRN TAKING NOVOLIN R 100 UNIT/ML SOLUTION SLIDING SCALE INJECTION THREE TO FOUR TIMES DAILY TAKING NOVOLIN N 100 UNIT/ML SUSPENSION 20 UNITS SUBCUTANEOUS BEFORE BEDTIME TAKING MULTI VITAMIN - TABLET 1 TABLET ORALLY ONCE A DAY, NOTES: PEAK PERFORMANCE MULTIVIAMIN FOR WOMEN TAKING ATORVASTATIN CALCIUM 10 MG TABLET 1 TABLET ORALLY ONCE A DAY TAKING TRAZODONE HCL 100 MG TABLET 1 TABLET AT BEDTIME ORALLY ONCE A DAY TAKING SUMATRIPTAN SUCCINATE 100 MG TABLET 1 TABLET NEEDED, MAY REPEAT DOSE ONE TIME IF NO RESPONSE IN 2 HOURS ORALLY ONCE A DAY NEEDED (MDD2, MAX MONTHLY HEADACHES 4) TAKING FERROUS SULFATE 325 (65 FE) MG TABLET 1 TABLET ORALLY TWICE A DAY TAKING METFORMIN HCL ER 500 MG TABLET 24 HOUR SUSTAINED RELEASE TAKE 2 TABLETS BY MOUTH TWO TIMES DAILY TAKING PANTOPRAZOLE SODIUM 40 MG TABLET DELAYED RELEASE 1 TABLET ORALLY ONCE A DAY TAKING CEPHALEXIN 500MG CAPSULE 1 CAPSULE ORALLY THREE TIMES DAILY NEEDED TAKING DIFLUCAN 150 MG TABLET 1 TABLET ORALLY QDAY X 1 DAY, REPEAT IN 1 WEEK IF NECESSARY TAKING BELBUCA 300 MCG FILM 1 FILM TO THE GUM BUCALLY BID MDD2 TAKING OXYCODONE HCL 5 MG TABLET 1 TABLET NEEDED ORALLY Q8H PRN MDD MDD2 TAKING LISINOPRIL 2.5 MG TABLET 1 TABLET ORALLY ONCE A DAY TAKING INSULIN SYRINGE 30G X 02/25 MISCELLANEOUS USE DIRECTED ACHS E11.65 , NOTES: OK TO SUBSTITUTE FORMULARY PREFERRED BRAND AND PATIENT PREFERRED SIZE. 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 SURGICAL HISTORY GASTRIC BYPASS 01/2013 FIBROUS TUMOR REMOVALS (47 OVER HER LIFETIME) MULTIPLE TONSILECTOMY 2010 ULCER REPAIR 07/19/17 DENTAL- TEETH EXTRACTED 12/2018 FAMILY HISTORY FATHER: ALIVE, DIAGNOSED WITH DIABETES, HEART DISEASE MOTHER: ALIVE SIBLINGS: DIABETES PATERNAL GRAND MOTHER: CANCER, DIABETES MATERNAL GRAND FATHER: HEART DISEASE, CANCER 2 BROTHER(S) , 1 SISTER(S) - HEALTHY. MOM--SKIN CA, ASTHMA\\NTYPE 2 DIABETES\\NPGM- PANCREATIC CANCER\\NMGF- LUNG CANCER. SOCIAL HISTORY GENERAL: TOBACCO USE ARE YOU A:FORMER SMOKER HOW LONG HAS IT BEEN SINCE YOU LAST SMOKED?> 10 YEARS HIV / HEP-C SCREENING HIV TEST OFFERED TO PATIENT:YES DATE OFFERED:06/18/2018 TEST ACCEPTED:NO HEP-C TEST OFFERED TO PATIENT:YES DATE OFFERED:06/18/2018 REASON:PATIENT DECLINED TEST ACCEPTED:NO REASON:PATIENT DECLINED BROCHURE PROVIDED TO PATIENTYES OTHERS AT HOME: SPOUSE. EDUCATION LEVEL OF EDUCATION:NOT FINISHED COLLEGE DIET: NO CONCENTRATED SWEETS., CARBOHYDRATE CONTROLLED. LANGUAGE LANGUAGES SPOKEN:CITIZEN OF [place] AND [place] DOMESTIC VIOLENCE DO YOU FEEL SAFE IN YOUR ENVIRONMENT?YES BMI CARE GOAL FOLLOW-UP ABOVE NORMAL BMI FOLLOW-UPDIETARY MANAGEMENT EDUCATION, GUIDANCE, AND COUNSELING RECREATIONAL DRUG USE DRUG USE?NO EXERCISE: DAILY. LEARNING BARRIERS / SPECIAL NEEDS CHANGE FROM LAST VISIT?NO BARRIERS TO LEARNING?NO HEARING IMPAIRED?NO VISION IMPAIRED?YES COGNITIVELY IMPAIRED?NO :CORRECTIVE LENSES READINESS TO LEARN?YES LEARNING PREFERENCES?NO LEARNING CAPABILITIES PRESENT?YES EMOTIONAL BARRIERS?NO SPECIAL DEVICES?YES :CANE PARTNER NEEDED?NO LUNG CANCER SCREENING SMOKING STATUS:FORMER SMOKER PAIN CLINIC PFS, CLERGY, PUBLIC HEALTH REFERRALS HAS THE PATIENT BEEN EDUCATED REGARDING HIS/HER PLAN OF CARE?YES HAS THE PATIENT BEEN EDUCATED REGARDING PAIN, THE RISK FOR PAIN, THE IMPORTANCE OF EFFECTIVE PAIN MANAGEMENT, AND THE PAIN ASSESSMENT PROCESS?YES LATEX QUESTIONNAIRE LATEX ALLERGY : HAVE YOU EVER DEVELOPED ANY TYPE OF REACTION AFTER HANDLING LATEX PRODUCTS SUCH RUBBER GLOVES, CONDOMS, DIAPHRAGMS, BALLOONS, SOCKS, OR UNDERWEAR?NO LATEX ALLERGY : HAVE YOU EVER DEVELOPED ANY TYPE OF REACTION DURING OR AFTER DENTAL APPOINTMENT, VAGINAL/RECTAL EXAMINATION, SURGICAL PROCEDURE, OR ANY OTHER EXPOSURE?NO DATE ASKED : 01/07/2019 LATEX RISK : HAVE YOU EVER HAD ANY DIFFICULTY BREATHING OR HIVES AFTER EATING OR HANDLING ANY FRUITS, OR VEGETABLES; SUCH KIWI, BANANAS, STONE FRUITS, OR CHESTNUTSNO LATEX RISK : DO YOU HAVE A PREVIOUS PERSONAL HISTORY OF MORE THAN NINE SURGERIES, SPINA BIFIDA, OR REPEATED CATHERTIZATIONS? NO LATEX RISK : ARE YOU FREQUENTLY EXPOSED TO LATEX PRODUCTS IN YOUR OCCUPATION?NO CAFFEINE CAFFEINE USE?YES COFFEE, SODA ADVANCE DIRECTIVE ADVANCE DIRECTIVE DISCUSSED WITH PATIENT:YES PT STATES SHE DOES NOT HAVE HCP AND DECLINES INFO AND ASSISTANCE AT THIS TIME. JEWISH [id number] BAPTISM MARITAL STATUS: . ALCOHOL SCREENING DID YOU HAVE A DRINK CONTAINING ALCOHOL IN THE PAST YEAR?YES HOW OFTEN DID YOU HAVE SIX OR MORE DRINKS ON ONE OCCASION IN THE PAST YEAR?NEVER (0 POINTS) HOW MANY DRINKS DID YOU HAVE ON A TYPICAL DAY WHEN YOU WERE DRINKING IN THE PAST YEAR?1 OR 2 (0 POINTS) HOW OFTEN DID YOU HAVE A DRINK CONTAINING ALCOHOL IN THE PAST YEAR?NEVER (0 POINTS) POINTS0 INTERPRETATIONNEGATIVE OCCUPATION: DISABLED. SEXUAL HX HAD SEX IN THE LAST 12 MONTHS (VAGINAL, ORAL, OR ANAL)?NO HAVE YOU EVER HAD AN STD?NO REVIEWED WITH PATIENT 09/18/18 1158 JSREVIEWED WITH PT 03/19/19 1150 LAS. HOSPITALIZATION/MAJOR DIAGNOSTIC PROCEDURE SURGICAL BLEEDING ULCER 07/2017 REVIEW OF SYSTEMS REVIEWED BY: PROVIDER: RADHA CARLSON . CONSTITUTIONAL: ANY CHANGE IN YOUR MEDICAL CONDITION? NO . CHILLS NO . FEVER NO . INFECTION: DO YOU HAVE NEW INFECTIONS? YES PT HAS HX OF "VOLCANIC LESIONS", HAS ONE NOW . DO YOU HAVE HISTORY OF MRSA? NO . MUSCULOSKELETAL: ANY NEW PATTERNS OF PAIN OR NUMBNESS? NO . GASTROENTEROLOGY: ANY NEW CHANGE IN BOWEL CONTROL? NO . GENITOURINARY: ANY NEW CHANGE IN BLADDER CONTROL? NO . IS THERE A CHANCE YOU COULD BE ? NO . HEMATOLOGY/LYMPH: DO YOU TAKE ANY BLOOD THINNERS? (FOR EXAMPLE- COUMADIN, PLAVIX, AGGRENOX, PLATEL, PRADAXA, OR XARELTO) NO . WHEN WAS YOUR LAST DOSE? DATE: TIME: . NEUROLOGY: HAVE YOU FALLEN IN THE PAST 12 MONTHS? NO . ANY NEW EXTREMITY NUMBNESS OR WEAKNESS? NO . CARDIOLOGY: DO YOU HAVE A PACEMAKER OR DEFIBRILLATOR? NO . RESPIRATORY: HAVE YOU BEEN SICK IN THE PAST WEEK? NO . FEVER NO . FLU LIKE SYMPTOMS? NO . COUGH NO . INTEGUMENTARY: DO YOU HAVE ANY RASHES OR OPEN SORES? OPEN AREA BACK OF LEFT THIGH, HEALING PER PT . ALLERGIC/IMMUNO: ARE YOU ALLERGIC TO IV DYE? NO . ANY NEW ALLERGIES? NO . PSYCHIATRIC: DO YOU HAVE THOUGHTS OF HURTING YOURSELF OR SOMEONE ELSE? NO . ARE YOU ABUSED, NEGLECTED, OR IN AN UNSAFE ENVIRONMENT? NO . ENDOCRINOLOGY: ARE YOU DIABETIC? YES . OTHER: DO YOU NEED ANY PRESCRIPTIONS? YES BELBUCA, OXYCODONE . IF YES, PLEASE LIST: ____ . ANY NEW PROBLEMS WITH YOUR MEDICATIONS? NO . WHEN DID YOU LAST EAT? ____ . WHEN DID YOU LAST DRINK? ____ . WHAT DID YOU LAST DRINK? ____ . NAME OF PERSON DRIVING YOU HOME? ____ . DO YOU HAVE ANY OTHER QUESTIONS OR CONCERNS NO . VITAL SIGNS WT 260 LBS, HT 69 IN, BMI 38.39 INDEX, BP 161/87 MM HG, HR 78 /MIN, RR 18 /MIN, TEMP 98.1 F, OXYGEN SAT % 98%, SAFE IN ENV? (Y/N) YES, NA INITIALS SC 11:30, REVIEWED BY: LOS. EXAMINATION GENERAL EXAMINATION: GENERAL APPEARANCE:ALERT/UNCOMFORTABLE. PSYCHAFFECT NORMAL. LUNGS:LUNG OLSEN ARE CLEAR TO AUSCULTATION BILATERALLY. GOOD MOVEMENT OF AIR. HEART:S1, S2 IN A REGULAR RATE AND RHYTHM. NO SIGNIFICANT MURMURS, RUBS OR GALLOPS NOTED. ASSESSMENTS SACROILIAC JOINT PAIN - M53.3 (PRIMARY) FIBROMYALGIA - M79.7 TREATMENT SACROILIAC JOINT PAIN REFILL BELBUCA FILM, 300 MCG, 1 FILM TO THE GUM, BUCALLY, BID MDD2, 30 DAY(S), 60, REFILLS 1 REFILL OXYCODONE HCL TABLET, 5 MG, 1 TABLET NEEDED, ORALLY, Q8H PRN MDD MDD2, 30 DAY(S), 60, REFILLS 0 START GABAPENTIN CAPSULE, 300 MG, 1 CAPSULE, ORALLY, Q8H TID, 30 DAY(S), 90, REFILLS 2 NOTES: ISTOP REGISTRY REVIEWED AND DEMONSTRATES COMPLLIANCE. BRINGS IN MEDICATIONS WHICH IS APPROPRIATE FOR WHAT WAS DISPENSED. RECENT URINE TOXICOLOGY REVIEWED. NO UNAUTHORIZED MEDICATIONS. NO ILLICIT SUBSTANCES AND PRESCRIBED MEDICATIONS WERE PRESENT. URINE TOX TODAY, RISKS AND BENEFITS OF NARCOTIC/OPIOD MEDICATIONS WERE REVIEWED WITH PATIENT - THIS INCLUDES BUT IS NOT LIMITED TO RISK OF DEPENDANCE/DEVELOPMENT OF ADDICTION, MOOD DISTURBANCE AND DEPRESSION, OSTEOPOROSIS, HORMONAL AND LABIDAL CHANGES, RESPIRATORY DEPRESSION AND . PATIENT IS ADVISED NOT TO DRIVE OR DRINK ALCOHOL WHILE ON THESE MEDICATIONS. PROCEDURE CODES FA211 ESTABILISHED PATIENT [facility] CHARGE DISPOSITION & COMMUNICATION FOLLOW UP 3 MONTHS ELECTRONICALLY SIGNED BY ALDO RUBIN ON 04/05/2019 AT 08:49 AM EDT DISCLAIMER : THIS IS A VISIT SUMMARY EXTRACTED FROM THE [employer] CHART. IT IS NOT A COPY OF THE [employer] PROGRESS NOTE. MTDD
== END ==
LOC: M PAIN 11:00
PROVIDERS: ATTEND Nurse Practitioner Family
DX: M53.3 Sacrococcygeal disorders, not elsewhere classified (principal); M79.7 Fibromyalgia; G89.29 Other chronic pain; Z79.4 Long term (current) use of insulin; Z79.891 Long term (current) use of opiate analgesic; Z79.899 Other long term (current) drug therapy; Z98.84 Bariatric surgery status; Z87.891 Personal history of nicotine dependence

== ENCOUNTER → 2019-06-18 | Outpatient (CLI) | payer MEDICARE ==
[~2019-06-18] MED LIST changes: +METF-791 PO; -METF500T4 PO
--- NOTE | 2019-07-01 01:52 | ECWPNPC ---
PATIENT NAME: ANGEL WILSON : 1960 GENDER: FEMALE VISIT DATE: 06/18/2019 DISCHARGE DATE: 06/18/19 1237 VISIT LOCKED DATE TIME: PHYSICIAN: RADHA CRUZ RESOURCE: RADHA CRUZ REASON FOR APPOINTMENT 1. JOINT PAIN HISTORY OF PRESENT ILLNESS HISTORY OF PRESENT ILLNESS: HERE FOR F/U AND MEDICINE MANAGEMENT OF CHRONIC LOW BACK PAIN AND GENERALIZED JOINT PAIN.USING BELBUCA 300MG BID. RATING PAIN 8/10 VAS.[facility] . DIAGNOSED WITH FIBROMYALGIA.DISCUSSED MEDICATION OPTIONS.HAS TRIALED MULTIPLE PAIN MEDICATIONS AND PROCEDURES OVER THE YEARS WITHOUT IMPROVEMENT IN PAIN.DISCUSSED TRIAL OF GABAPENTIN. PAIN THE PATIENT DESCRIBES THE PAIN... THE PATIENT DESCRIBES THE PAIN... THE PATIENT DESCRIBES THE PAIN... THE PATIENT DESCRIBES THE PAIN... THE PATIENT DESCRIBES THE PAIN... THE PATIENT DESCRIBES THE PAIN... PAIN THE PATIENT DESCRIBES THE PAIN... THE PATIENT DESCRIBES THE PAIN... THE PATIENT DESCRIBES THE PAIN... THE PATIENT DESCRIBES THE PAIN... THE PATIENT DESCRIBES THE PAIN... THE PATIENT DESCRIBES THE PAIN... FALL RISK SCREENING: SCREENING :NO FALLS REPORTED IN THE LAST YEAR CURRENT MEDICATIONS TAKING B-50 COMPLEX - TABLET EXTENDED RELEASE 1 CAP ORALLY DAILY TAKING HAIR SKIN AND NAILS FORMULA - TABLET 1 CAP ORALLY THREE TIMES DAILY TAKING CPAP MASK DIRECTED _ DAILY ICD10 G47.33 TAKING VITAMIN C 1000 MG TABLET 1 TABLET ORALLY BID TAKING BD INSULIN SYRINGE 30G X 12 MISCELLANEOUS 1 INJECTION _ FOUR TIMES DAILY ICD10 E11.65 TAKING ZANAFLEX 4 MG TABLET 1 TABLET NEEDED ORALLY THREE TIMES A DAY PRN TAKING NOVOLIN R 100 UNIT/ML SOLUTION SLIDING SCALE INJECTION THREE TO FOUR TIMES DAILY TAKING NOVOLIN N 100 UNIT/ML SUSPENSION 20 UNITS SUBCUTANEOUS BEFORE BEDTIME TAKING MULTI VITAMIN - TABLET 1 TABLET ORALLY ONCE A DAY, NOTES: PEAK PERFORMANCE MULTIVIAMIN FOR WOMEN TAKING FERROUS SULFATE 325 (65 FE) MG TABLET 1 TABLET ORALLY TWICE A DAY TAKING METFORMIN HCL ER 500 MG TABLET 24 HOUR SUSTAINED RELEASE TAKE 2 TABLETS BY MOUTH TWO TIMES DAILY TAKING PANTOPRAZOLE SODIUM 40 MG TABLET DELAYED RELEASE 1 TABLET ORALLY ONCE A DAY TAKING CEPHALEXIN 500MG CAPSULE 1 CAPSULE ORALLY THREE TIMES DAILY NEEDED TAKING DIFLUCAN 150 MG TABLET 1 TABLET ORALLY QDAY X 1 DAY, REPEAT IN 1 WEEK IF NECESSARY TAKING INSULIN SYRINGE 30G X 5/16 MISCELLANEOUS USE DIRECTED ACHS E11.65 , NOTES: OK TO SUBSTITUTE FORMULARY PREFERRED BRAND AND PATIENT PREFERRED SIZE. TAKING BELBUCA 300 MCG FILM 1 FILM TO THE GUM BUCALLY BID MDD2 TAKING RELION INSULIN SYRINGE 30G X 5/16 MISCELLANEOUS DIRECTED ACHS E11.9 TAKING ATORVASTATIN CALCIUM 10 MG TABLET TAKE 1 TABLET BY MOUTH ONCE A DAY TAKING LISINOPRIL 2.5 MG TABLET 1 TABLET ORALLY ONCE A DAY TAKING TRAZODONE HCL 100 MG TABLET 1 TABLET AT BEDTIME ORALLY ONCE A DAY TAKING SUMATRIPTAN SUCCINATE 100 MG TABLET 1 TABLET NEEDED, MAY REPEAT DOSE ONE TIME IF NO RESPONSE IN 2 HOURS ORALLY ONCE A DAY NEEDED (MDD2 , MAX MONTHLY HEADACHES 4) TAKING IRON 325 (65 FE) MG TABLET TAKE 1 TABLET BY MOUTH TWICE DAILY TAKING GABAPENTIN 300 MG CAPSULE 1 CAPSULE ORALLY Q8H TID TAKING TIZANIDINE HCL 4 MG TABLET 1 TABLET NEEDED ORALLY THREE TIMES A DAY TAKING OXYCODONE HCL 5 MG TABLET 1 TABLET NEEDED ORALLY Q8H PRN MDD MDD2 TAKING ONETOUCH VERIO - STRIP DIRECTED IN VITRO QID ICD10 Z79 NOT-TAKING CARAFATE 1 GM TABLET TAKE 1 TABLET BY MOUTH 3 TIMES A DAY ON AN EMPTY STOMACH NOT-TAKING TIZANIDINE HCL 4 MG TABLET 1 TABLET NEEDED ORALLY THREE TIMES A DAY NOT-TAKING LYRICA 100 MG CAPSULE 1 ORALLY BID MDD2 MEDICATION LIST REVIEWED AND RECONCILED WITH THE PATIENT PAST MEDICAL HISTORY CHRONIC NECK PAIN CHRONIC LBP, ON DISABILITY FOR IT, ON CHRONIC OPIATES BY PAIN CLINIC TYPE 2 DIABETES ON INSULIN AND METFORMIN, A1C 7.10 FEB 2018 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 SURGICAL HISTORY GASTRIC BYPASS 01/2013 FIBROUS TUMOR REMOVALS (47 OVER HER LIFETIME) MULTIPLE TONSILECTOMY 2010 ULCER REPAIR 07/19/17 DENTAL- TEETH EXTRACTED 12/2018 FAMILY HISTORY FATHER: ALIVE, DIAGNOSED WITH DIABETES, UNSPECIFIED HEART DISEASE MOTHER: ALIVE SIBLINGS: DIABETES PATERNAL GRAND MOTHER: DIABETES, OTHER MALIGNANT NEOPLASM OF UNSPECIFIED SITE MATERNAL GRAND FATHER: UNSPECIFIED HEART DISEASE, OTHER MALIGNANT NEOPLASM OF UNSPECIFIED SITE 2 BROTHER(S) , 1 SISTER(S) - HEALTHY. MOM--SKIN CA, ASTHMA\NTYPE 2 DIABETES\NPGM- PANCREATIC CANCER\NMGF- LUNG CANCER. SOCIAL HISTORY GENERAL: TOBACCO USE ARE YOU A:FORMER SMOKER HOW LONG HAS IT BEEN SINCE YOU LAST SMOKED?> 10 YEARS HIV / HEP-C SCREENING HIV TEST OFFERED TO PATIENT:YES DATE OFFERED:06/18/2018 TEST ACCEPTED:NO HEP-C TEST OFFERED TO PATIENT:YES DATE OFFERED:06/18/2018 REASON:PATIENT DECLINED TEST ACCEPTED:NO REASON:PATIENT DECLINED BROCHURE PROVIDED TO PATIENTYES OTHERS AT HOME: SPOUSE. EDUCATION LEVEL OF EDUCATION:NOT FINISHED COLLEGE DIET: NO CONCENTRATED SWEETS., CARBOHYDRATE CONTROLLED. LANGUAGE LANGUAGES SPOKEN:SPANISH DOMESTIC VIOLENCE DO YOU FEEL SAFE IN YOUR ENVIRONMENT?YES BMI CARE GOAL FOLLOW-UP ABOVE NORMAL BMI FOLLOW-UPDIETARY MANAGEMENT EDUCATION, GUIDANCE, AND COUNSELING RECREATIONAL DRUG USE DRUG USE?NO EXERCISE: DAILY. LEARNING BARRIERS / SPECIAL NEEDS CHANGE FROM LAST VISIT?NO BARRIERS TO LEARNING?NO HEARING IMPAIRED?NO VISION IMPAIRED?YES COGNITIVELY IMPAIRED?NO :CORRECTIVE LENSES READINESS TO LEARN?YES LEARNING PREFERENCES?NO LEARNING CAPABILITIES PRESENT?YES EMOTIONAL BARRIERS?NO SPECIAL DEVICES?YES :CANE SPINNER TENDER NEEDED?NO LUNG CANCER SCREENING SMOKING STATUS:FORMER SMOKER PAIN CLINIC PFS, CLERGY, PUBLIC HEALTH REFERRALS HAS THE PATIENT BEEN EDUCATED REGARDING HIS/HER PLAN OF CARE?YES HAS THE PATIENT BEEN EDUCATED REGARDING PAIN, THE RISK FOR PAIN, THE IMPORTANCE OF EFFECTIVE PAIN MANAGEMENT, AND THE PAIN ASSESSMENT PROCESS?YES LATEX QUESTIONNAIRE LATEX ALLERGY : HAVE YOU EVER DEVELOPED ANY TYPE OF REACTION AFTER HANDLING LATEX PRODUCTS SUCH RUBBER GLOVES, CONDOMS, DIAPHRAGMS, BALLOONS, SOCKS, OR UNDERWEAR?NO LATEX ALLERGY : HAVE YOU EVER DEVELOPED ANY TYPE OF REACTION DURING OR AFTER DENTAL APPOINTMENT, VAGINAL/RECTAL EXAMINATION, SURGICAL PROCEDURE, OR ANY OTHER EXPOSURE?NO DATE ASKED : 01/07/2019 LATEX RISK : HAVE YOU EVER HAD ANY DIFFICULTY BREATHING OR HIVES AFTER EATING OR HANDLING ANY FRUITS, OR VEGETABLES; SUCH KIWI, BANANAS, STONE FRUITS, OR CHESTNUTSNO LATEX RISK : DO YOU HAVE A PREVIOUS PERSONAL HISTORY OF MORE THAN NINE SURGERIES, SPINA BIFIDA, OR REPEATED CATHERIZATIONS? NO LATEX RISK : ARE YOU FREQUENTLY EXPOSED TO LATEX PRODUCTS IN YOUR OCCUPATION?NO CAFFEINE CAFFEINE USE?YES COFFEE, SODA ADVANCE DIRECTIVE ADVANCE DIRECTIVE DISCUSSED WITH PATIENT:YES PT STATES SHE DOES NOT HAVE HCP AND DECLINES INFO AND ASSISTANCE AT THIS TIME. ALEVISM [id number] SCIENTOLOGIST MARITAL STATUS: . ALCOHOL SCREENING DID YOU HAVE A DRINK CONTAINING ALCOHOL IN THE PAST YEAR?YES HOW OFTEN DID YOU HAVE SIX OR MORE DRINKS ON ONE OCCASION IN THE PAST YEAR?NEVER (0 POINTS) HOW MANY DRINKS DID YOU HAVE ON A TYPICAL DAY WHEN YOU WERE DRINKING IN THE PAST YEAR?1 OR 2 (0 POINTS) HOW OFTEN DID YOU HAVE A DRINK CONTAINING ALCOHOL IN THE PAST YEAR?NEVER (0 POINTS) POINTS0 INTERPRETATIONNEGATIVE OCCUPATION: DISABLED. SEXUAL HX HAD SEX IN THE LAST 12 MONTHS (VAGINAL, ORAL, OR ANAL)?NO HAVE YOU EVER HAD AN STD?NO REVIEWED WITH PATIENT 09/18/18 1158 JSREVIEWED WITH PT 03/19/19 1150 LASREVIEWED WITH PATIENT 06/18/19 1205 NLJ. HOSPITALIZATION/MAJOR DIAGNOSTIC PROCEDURE SURGICAL BLEEDING ULCER 07/2017 REVIEW OF SYSTEMS REVIEWED BY: PROVIDER: RADHA CARLSON . CONSTITUTIONAL: ANY CHANGE IN YOUR MEDICAL CONDITION? NO . CHILLS NO . FEVER NO . INFECTION: DO YOU HAVE NEW INFECTIONS? NO . DO YOU HAVE HISTORY OF MRSA? NO . MUSCULOSKELETAL: ANY NEW PATTERNS OF PAIN OR NUMBNESS? NO . GASTROENTEROLOGY: ANY NEW CHANGE IN BOWEL CONTROL? NO . GENITOURINARY: ANY NEW CHANGE IN BLADDER CONTROL? NO . IS THERE A CHANCE YOU COULD BE ? NO . HEMATOLOGY/LYMPH: DO YOU TAKE ANY BLOOD THINNERS? (FOR EXAMPLE- COUMADIN, PLAVIX, AGGRENOX, PLATEL, PRADAXA, OR XARELTO) NO . WHEN WAS YOUR LAST DOSE? DATE: TIME: . NEUROLOGY: HAVE YOU FALLEN IN THE PAST 12 MONTHS? NO . ANY NEW EXTREMITY NUMBNESS OR WEAKNESS? YES- STATES SHE HAS PAIN, NUMBNESS AND TINGLING IN HER LEFT ARM WELL WEAKNESS HOLDING THINGS . CARDIOLOGY: DO YOU HAVE A PACEMAKER OR DEFIBRILLATOR? NO . RESPIRATORY: HAVE YOU BEEN SICK IN THE PAST WEEK? NO . FEVER NO . FLU LIKE SYMPTOMS? NO . COUGH NO . INTEGUMENTARY: DO YOU HAVE ANY RASHES OR OPEN SORES? NO . ALLERGIC/IMMUNO: ARE YOU ALLERGIC TO IV DYE? NO . ANY NEW ALLERGIES? NO . PSYCHIATRIC: DO YOU HAVE THOUGHTS OF HURTING YOURSELF OR SOMEONE ELSE? NO . ARE YOU ABUSED, NEGLECTED, OR IN AN UNSAFE ENVIRONMENT? NO . ENDOCRINOLOGY: ARE YOU DIABETIC? YES . OTHER: DO YOU NEED ANY PRESCRIPTIONS? YES . IF YES, PLEASE LIST: ____NEED GABAPENTIN REFILLED AND CALLED IN 90 DAY SUPPLY TO [facility], SHE CAN ALSO GET TIZANIDINE MAIL ORDER . ANY NEW PROBLEMS WITH YOUR MEDICATIONS? NO . WHEN DID YOU LAST EAT? ____ . WHEN DID YOU LAST DRINK? ____ . WHAT DID YOU LAST DRINK? ____ . NAME OF PERSON DRIVING YOU HOME? ____ . DO YOU HAVE ANY OTHER QUESTIONS OR CONCERNS YES- WOULDL LIKE TO KNOW IF YOU CAN NOW INCREASE HER GABAPENTIN . VITAL SIGNS WT 259 LBS, HT 69 IN, BMI 38.24 INDEX, BP 150/76 MM HG, HR 77 /MIN, RR 18 /MIN, TEMP 98.4 F, OXYGEN SAT % 96%, SAFE IN ENV? (Y/N) YES, NA INITIALS OK 11:58, REVIEWED BY: COY. EXAMINATION GENERAL EXAMINATION: GENERALALERT/UNCOMFORTABLE. PSYCHAFFECT NORMAL. LUNGS:LUNG OLSEN ARE CLEAR TO AUSCULTATION BILATERALLY. GOOD MOVEMENT OF AIR. HEART:S1, S2 IN A REGULAR RATE AND RHYTHM. NO SIGNIFICANT MURMURS, RUBS OR GALLOPS NOTED. ASSESSMENTS FIBROMYALGIA - M79.7 (PRIMARY) LUMBAR BACK PAIN WITH RADICULOPATHY AFFECTING LEFT LOWER EXTREMITY - M54.17 TREATMENT FIBROMYALGIA REFILL BELBUCA FILM, 300 MCG, 1 FILM TO THE GUM, BUCALLY, BID MDD2, 30 DAY(S), 60, REFILLS 2 INCREASE GABAPENTIN TABLET, 600 MG, 1 CAPSULE, ORALLY, Q8H TID, 30 DAY(S), 90, REFILLS 0 REFILL TIZANIDINE HCL TABLET, 4 MG, 1 TABLET NEEDED, ORALLY, THREE TIMES A DAY, 90 DAY(S), 270 TABLET, REFILLS 1 REFILL OXYCODONE HCL TABLET, 5 MG, 1 TABLET NEEDED, ORALLY, Q8H PRN MDD MDD2, 30 DAY(S), 60, REFILLS 0 NOTES: ISTOP REGISTRY REVIEWED AND DEMONSTRATES COMPLLIANCE. BRINGS IN MEDICATIONS WHICH IS APPROPRIATE FOR WHAT WAS DISPENSED. RECENT URINE TOXICOLOGY REVIEWED. NO UNAUTHORIZED MEDICATIONS. NO ILLICIT SUBSTANCES AND PRESCRIBED MEDICATIONS WERE PRESENT. , RISKS AND BENEFITS OF NARCOTIC/OPIOD MEDICATIONS WERE REVIEWED WITH PATIENT - THIS INCLUDES BUT IS NOT LIMITED TO RISK OF DEPENDANCE/DEVELOPMENT OF ADDICTION, MOOD DISTURBANCE AND DEPRESSION, OSTEOPOROSIS, HORMONAL AND LABIDAL CHANGES, RESPIRATORY DEPRESSION AND . PATIENT IS ADVISED NOT TO DRIVE OR DRINK ALCOHOL WHILE ON THESE MEDICATIONS. PROCEDURE CODES FA211 ESTABILISHED PATIENT [facility] CHARGE DISPOSITION & COMMUNICATION FOLLOW UP 2 MONTHS (REASON: MED MGMNT) ELECTRONICALLY SIGNED BY ALDO RUBIN ON 06/30/2019 AT 01:32 PM EDT DISCLAIMER : THIS IS A VISIT SUMMARY EXTRACTED FROM THE [employer]CL[employer]ICALWORKS CHART. IT IS NOT A COPY OF THE [employer]ICALWORKS PROGRESS NOTE. DERRELLD
== END ==
LOC: M PAIN 11:00
PROVIDERS: ATTEND Nurse Practitioner Family
DX: M79.7 Fibromyalgia (principal); M54.17 Radiculopathy, lumbosacral region; E11.40 Type 2 diabetes mellitus with diabetic neuropathy, unspecified; Z98.84 Bariatric surgery status; G47.33 Obstructive sleep apnea (adult) (pediatric); M19.90 Unspecified osteoarthritis, unspecified site; D50.9 Iron deficiency anemia, unspecified; Z87.891 Personal history of nicotine dependence; Z79.4 Long term (current) use of insulin; Z79.899 Other long term (current) drug therapy

== ENCOUNTER → 2019-07-05 | Outpatient (REF) | payer MEDICARE ==
[2019-07-05 20:15] LABS: BLOOD UREA NITROGEN 9 MG/DL (7-18); CALCIUM LEVEL 9.1 MG/DL (8.5-10.1); CARBON DIOXIDE LEVEL 29 MEQ/L (21-32); CHLORIDE LEVEL 106 MEQ/L (98-107); CREATININE FOR GFR 0.74 MG/DL (0.55-1.30); FERRITIN 109 NG/ML (8-252); GLOMERULAR FILTRATION RATE > 60.0 (>51); GLUCOSE, FASTING 77 MG/DL (70-100); IRON (FE) 98 UG/DL (50-170); PERCENT SATURATION 34.3 % (13.2-45.0); POTASSIUM SERUM 4.6 MEQ/L (3.5-5.1); SODIUM LEVEL 142 MEQ/L (136-145); TOTAL IRON BINDING CAPACITY 286 UG/DL (250-450)
[2019-07-05 20:16] LABS: BASO % 0.3 % (0.0-1.0); EOS # 0.1 10^3/uL (0.0-0.5); HEMOGLOBIN 13.6 g/dl (12.0-15.5); LYMPH % 27.8 % (24.0-44.0); MEAN CORPUSCULAR HEMOGLOBIN 30.4 pg (27.0-33.0); MEAN CORPUSCULAR HGB CONC 33.2 g/dl (32.0-36.5); MEAN CORPUSCULAR VOLUME 91.5 fl (80.0-96.0); MONO # 0.5 10^3/uL (0.0-0.8); MONO % 6.3 % (0.0-5.0); NEUTROPHILS # 4.7 10^3/uL (1.5-8.5); NEUTROPHILS % 64.3 % (36.0-66.0); PLATELET COUNT, AUTOMATED 223 10^3/uL (150-450); RED BLOOD COUNT 4.48 10^6/uL (4.00-5.40); WHITE BLOOD COUNT 7.3 10^3/uL (4.0-10.0)
[2019-07-05 20:29] LABS: HEMOGLOBIN A1c 6.3 %
== END ==
LOC: M SFHCLERA 16:26
PROVIDERS: ATTEND Family Medicine
DX: E11.9 Type 2 diabetes mellitus without complications (principal); Z87.19 Personal history of other diseases of the digestive system

== ENCOUNTER 2019-08-05 14:30 | Emergency (ER) | payer MEDICARE ==
[~2019-08-05] VITALS: Ht 177.8 cm; Wt 118.6 kg
[2019-08-05] MEDS ORDERED: GABA600T4 PO (15:13)
[2019-08-05 15:29] LABS: BASO % 0.1 % (0.0-1.0); HEMATOCRIT 40.2 % (36.0-47.0); HEMOGLOBIN 13.7 g/dl (12.0-15.5); LYMPH # 1.1 10^3/uL (1.5-5.0); LYMPH % 7.2 % (24.0-44.0); MEAN CORPUSCULAR HEMOGLOBIN 31.9 pg (27.0-33.0); MEAN CORPUSCULAR HGB CONC 34.1 g/dl (32.0-36.5); MEAN CORPUSCULAR VOLUME 93.5 fl (80.0-96.0); MONO # 0.5 10^3/uL (0.0-0.8); MONO % 3.5 % (0.0-5.0); NEUTROPHILS % 88.7 % (36.0-66.0); PLATELET COUNT, AUTOMATED 183 10^3/uL (150-450); WHITE BLOOD COUNT 14.7 10^3/uL (4.0-10.0)
[2019-08-05 15:40] LABS: INR 1.14; PARTIAL THROMBOPLASTIN TIME 27.4 SECONDS (25.0-38.4); PROTHROMBIN TIME 14.3 SECONDS (11.8-14.0)
[2019-08-05 15:59] LABS: ALBUMIN 2.9 GM/DL (3.2-5.2); BILIRUBIN,DIRECT 0.3 MG/DL (0.0-0.2); BILIRUBIN,TOTAL 0.8 MG/DL (0.2-1.0); CALCIUM LEVEL 9.4 MG/DL (8.5-10.1); CREATININE FOR GFR 1.94 MG/DL (0.55-1.30); GLOMERULAR FILTRATION RATE 28.4 (>51); MB/CK RELATIVE INDEX 0.43 (< OR =4); POTASSIUM SERUM 3.7 MEQ/L (3.5-5.1); TOTAL PROTEIN 6.7 GM/DL (6.4-8.2); TROPONIN I 3.67 NG/ML (< 0.10)
[2019-08-05] MEDS ORDERED: NS 1,000 ML IV ONE ×2 (16:15→16:45)
[2019-08-05] MEDS ORDERED: ASPIRIN 81 MG CHEW TABLET As Ordered ONE (16:22)
[2019-08-05] MEDS ORDERED: ASPIRIN 325 MG TAB PO ONE (16:30)
[2019-08-05] MEDS ORDERED: PIPERACILLIN/TAZOBACTAM SOD 3.375 GM in D5W MINI-BAG PLUS 50 ML IV ONE (17:00)
--- NOTE | 2019-08-05 17:11 | REP ---
REASON: Chest pain. PRIORS: None. The technique utilized in obtaining the radiograph has magnified the cardiac silhouette and accentuated the interstitial markings. The superior mediastinal structures are midline. The cardiac silhouette is unremarkable in size, shape, and position. The diaphragmatic surfaces of the lungs are regular, and the costophrenic angles are clear. The pulmonary stephenson are clear. The imaged osseous structures are intact. IMPRESSION: There is no acute cardiopulmonary disease. Electronically Signed by Geovanny Mancini DO 08/06/2019 10:00 A
--- NOTE | 2019-08-05 17:41 | REP ---
HISTORY: Abdominal pain. Stone protocol utilized to assess for renal calculi. Limited evaluation of the solid intra-abdominal organs show hepatic and splenic densities to be within normal limits. Limited evaluation of the pancreas shows mild peripancreatic fatty infiltration. Limited evaluation of the adrenal glands show no gross abnormalities. Limited evaluation of the kidneys shows no evidence of nephroureterolithiasis, hydronephrosis, or hydroureter. There are no urinary bladder calcifications. There are bilateral pelvic phleboliths. The gallbladder is hydropic and there is evidence of gallbladder wall thickening and pericholecystic fluid, difficult to evaluate without intravenous contrast administration. There is no evidence of free fluid or free air. Postoperative changes are seen in the left upper quadrant from previous gastric surgery. The pelvic bowel loops and the mesenteries are unremarkable. There is no free pelvic fluid or air. There is no evidence of a pelvic mass or adenopathy. Bone window technique throughout the examination shows chronic spinal degenerative changes with bilateral L5 spondylolysis. IMPRESSION: 1. The exam is limited without intravenous contrast. There is evidence of gallbladder disease with a hydropic gallbladder likely with gallbladder wall thickening and pericholecystic edema. Ultrasonography is recommended for further evaluation. 2. There is peripancreatic fatty infiltration difficult to evaluate without intravenous and oral bowel preparatory contrast administration. Mild pancreatitis is suspected, but needs to be evaluated for clinically. This is seen in conjunction with mild periduodenal fatty infiltration and possible thickening of the guy of the duodenum. Duodenitis could be secondary to pancreatitis or as a stand alone abnormality. This needs to be correlated clinically with followup. 3. Other findings as described above. Contrast enhanced examination is recommended. Electronically Signed by Geovanny Mancini DO 08/06/2019 10:01 A
[2019-08-05] MEDS ORDERED: NS 500 ML IV ONE (18:00)
[2019-08-05 18:24] VITALS: BP 92/62
--- NOTE | 2019-08-06 21:20 | ECGEPIP ---
[facility] - ED Test Date: 2019-08-05 Pat Name: ANGEL WILSON Department: Room: - Gender: Female Field Sales Specialist: [facility] : 1960 Requested By: COURTNEY Reese Order Number: [id number] Reading MD: Bree Farah Measurements Intervals [place] Rate: 91 P: 34 CT: 131 QRS: 8 QRSD: 88 T: 52 QT: 364 QTc: 449 Interpretive Statements SINUS RHYTHM INCREASED RATE 07/19/17 Electronically Signed on 08-06-2019 21:20:25 EDT by Bree Farah
== END 2019-08-05 18:25 | disposition short-term general hospital (02) ==
LOC: M ED 14:30
DX: I21.4 Non-ST elevation (NSTEMI) myocardial infarction (principal); R57.0 Cardiogenic shock; E11.9 Type 2 diabetes mellitus without complications; F43.20 Adjustment disorder, unspecified; G62.9 Polyneuropathy, unspecified; G47.33 Obstructive sleep apnea (adult) (pediatric); M79.7 Fibromyalgia; Z98.84 Bariatric surgery status; Z79.899 Other long term (current) drug therapy; Z79.4 Long term (current) use of insulin; Z79.82 Long term (current) use of aspirin; Z87.891 Personal history of nicotine dependence
CPT/HCPCS: 36415; 71045; 74176; 80048; 80076; 81001; 82150; 82550; 82553; 83605; 83690; 84484; 85025; 85610; 85730; 87040; 87086; 93005; 96361; 96374; 99291; J2543

== ENCOUNTER 2019-08-12 12:17 | Inpatient (IN) | payer MEDICARE ==
[~2019-08-12] VITALS: Ht 177.8 cm; Wt 121.6 kg
[~2019-08-12 12:17] MED LIST changes: +GABA600T4 PO
[2019-08-12] MEDS ORDERED: NS 1,000 ML IV SCH (12:37)
[2019-08-12] MEDS ORDERED: ACETAMINOPHEN 325 MG TAB PO ONE (13:00)
[2019-08-12] MEDS ORDERED: ONDANSETRON 4MG/2ML VIAL (J2405) IV ONE (13:00)
[2019-08-12] MEDS ORDERED: fentaNYL 100 MCG/2 ML INJECTION (J3010) IV ONE ×2 (13:00→17:15)
[2019-08-12] MEDS ORDERED: PIPERACILLIN/TAZOBACTAM SOD 4.5 GM in D5W MINI-BAG PLUS 50 ML IV ONE (13:00)
[2019-08-12 13:26] LABS: BASO # 0.1 10^3/uL (0.0-0.2); BASO % 0.3 % (0.0-1.0); EOS % 0.1 % (0.0-3.0); HEMATOCRIT 32.5 % (36.0-47.0); HEMOGLOBIN 10.6 g/dl (12.0-15.5); LYMPH # 1.4 10^3/uL (1.5-5.0); LYMPH % 7.4 % (24.0-44.0); MEAN CORPUSCULAR HEMOGLOBIN 30.8 pg (27.0-33.0); MEAN CORPUSCULAR HGB CONC 32.6 g/dl (32.0-36.5); MEAN CORPUSCULAR VOLUME 94.5 fl (80.0-96.0); MONO # 1.1 10^3/uL (0.0-0.8); MONO % 5.7 % (0.0-5.0); NEUTROPHILS # 15.9 10^3/uL (1.5-8.5); NEUTROPHILS % 84.9 % (36.0-66.0); PLATELET COUNT, AUTOMATED 391 10^3/uL (150-450); RED BLOOD COUNT 3.44 10^6/uL (4.00-5.40); WHITE BLOOD COUNT 18.7 10^3/uL (4.0-10.0)
[2019-08-12] MEDS: GASTROGRAFIN SOLUTION 30ML PO SCH ×2 (13:37→14:00)
[2019-08-12 13:47] LABS: INR 1.18; PROTHROMBIN TIME 14.7 SECONDS (11.8-14.0)
[2019-08-12 13:55] LABS: ALBUMIN 2.1 GM/DL (3.2-5.2); BILIRUBIN,DIRECT 0.3 MG/DL (0.0-0.2); BILIRUBIN,TOTAL 0.6 MG/DL (0.2-1.0)
[2019-08-12] MEDS ORDERED: NS 3,570 ML in IV 1 EA IV ONE (14:30)
[2019-08-12] MEDS ORDERED: ISOVUE-370 76% 100ML VIAL (Q9967) As Ordered ONE (14:43)
--- NOTE | 2019-08-12 15:21 | REP ---
Clinical: Fever. Biliary drain. Technique: Axial contrast enhanced images from the lung bases to the pubic symphysis using oral (per protocol) and 100 ml Isovue 370 intravenous contrast material with coronal and sagittal re-formations. Comparison: 08/05/2019. Findings: The patient is status post percutaneous biliary drainage catheter with pigtail in the gallbladder. Inflammatory stranding and small amount of fluid extending from the ashish hepatis and surrounding the pancreas to the level of the splenic hilum is appreciated and appears slightly increased from prior examination. Findings are nonspecific and may represent sequelae of cholecystitis and pancreatitis. Although bile leak cannot be excluded, there is no evidence for free fluid extending along the pericolic gutters, within the infrahepatic space, or pelvis. Liver, spleen, bilateral adrenal glands and kidneys are essentially normal/stable. Stable 1.3 cm right lower pole renal cyst again noted. The enteric system is without obstruction or acute inflammatory process normal terminal ileum and appendix identified in the right lower quadrant. Pelvis demonstrates normal bladder and age appropriate uterus / adnexa. No free air. Small fat containing periumbilical hernia. Abdominal aorta without aneurysm or dissection. Musculoskeletal structures are intact. Lung bases demonstrate bibasilar atelectasis and small pleural reactions. Impression: 1. Percutaneous biliary drainage catheter extends into the gallbladder which appears moderately decompressed as compared to prior exam. Small amount of fluid and inflammatory stranding in the upper abdomen as described above most likely representing an acute cholecystitis/pancreatitis and possible gastric duodenitis. Bile leak less likely suggested. 2. Lung bases demonstrate mild bibasilar atelectasis and small pleural reactions. Electronically Signed by Alban Rodriguez MD 08/12/2019 03:13 P
[2019-08-12] MEDS ORDERED: C-101TAB PO (16:22)
[2019-08-12] MEDS ORDERED: AUGM875T28 PO (16:22)
[2019-08-12] MEDS ORDERED: PANT-23 PO (16:22)
[2019-08-12] MEDS ORDERED: LISI-1046 PO (16:22)
[2019-08-12] MEDS ORDERED: VANCOMYCIN HCL 1,000 MG, VIAL MATE ADAPTER 1 EACH in D5W 250 ML IV ONE (17:30)
[2019-08-12] MEDS ORDERED: ONDANSETRON 4MG/2ML VIAL (J2405) IV PRN (18:00)
[2019-08-12] MEDS ORDERED: ACETAMINOPHEN TAB 650MG DOSE (2X325MG) PO PRN (18:00)
[2019-08-12] MEDS ORDERED: tiZANidine 4 MG TAB PO PRN (18:00)
[2019-08-12] MEDS ORDERED: SUMAtriptan SUCCINATE 25 MG TAB PO PRN (18:00)
[2019-08-12] MEDS: LR 1,000 ML IV SCH (19:45)
[2019-08-12] MEDS: PIPERACILLIN/TAZOBACTAM SOD 3.375 GM in D5W MINI-BAG PLUS 50 ML IV SCH (20:00)
[2019-08-12] MEDS: HumaLOG INSULIN (NovoLOG) PER UNIT SC SCH (21:00)
[2019-08-12] MEDS: GABAPENTIN 300 MG CAP PO SCH (21:36)
[2019-08-12] MEDS: NORCO, ANEXSIA 5/325MG TABLET (HYDROcodone/ACETAMINOPHEN) PO PRN (21:41)
[2019-08-12 22:35] VITALS: BP 116/57
--- NOTE | 2019-08-12 23:16 | PHACANCOPD ---
PHARMACY VANCOMYCIN DOSING Pt Demographics Demographics Patient Age:58 , Weight:122.200 , Gender: female Adjusted Body Weight Date: 08/12/19, Adjusted Body Weight: [85] Kg Vancomycin Vancomycin indication: SEPSIS Vancomycin Target Ranges: 15-20 mcg/ml Vancomycin Load Y/N: Yes Load Dose Date Time Vancomycin Load Dose: 1GM IN ER Date: 08/12/08 Time: 18:45 1GM on floor 08/13/19 03:00 Vancomycin Dose Date: 08/13/19. Current Vancomycin Dose: [1GM IV Q12H (11:00] Intermittent Dosing?: No Labs Labs Laboratory Tests 08/12/19 12:37 Micro Microbiology 08/12/19 Gram Stain - Final, Resulted 08/12/19 Body Fluid Culture, Resulted Pending 08/12/19 Blood Culture, Received Pending 08/12/19 Blood Culture, Received Pending Creatinine Clearance Date:08/12/19. Creatinine Clearance: [>35ml/min] BASED on a previous SCR. Pending Labs VANCO TROUGH 08/13 PRIOR TO 23:00 DOSE Assessment and Plan Maintaining Current Dose?: Yes Reason for dose change: No Dose Change Pharmacist Note Pharmacist Note Date: 08/12/19. PharmD note: VANCO 1GM IV GIVEN IN THE ER 18:45 THIS EVENING. WE WILL REPEAT THE ONE TIME DOSE AT 03:00 08/13/19 TO COMPLETE A LOADING DOSE. WE WILL THEN CONTINUE WITH VANCO 1GM IV Q12H STARTING AT 11AM 08/13/19 FOLLOWED BY A VANCO TROUGH PRIOR TO HER 23:00 08/13/19 DOSE. [facility] Aug 12, 2019 23:16
[2019-08-12] MEDS: traZODone 100 MG TAB PO SCH (23:30)
[2019-08-13] VITALS: BP 137/72
[2019-08-13] MEDS: MORPHINE 2 MG/ML 1ML VIAL (J2270) IV PRN ×4 (00:24→23:43)
[2019-08-13] MEDS: LR 1,000 ML IV SCH ×3 (02:46→23:43)
[2019-08-13] MEDS: PIPERACILLIN/TAZOBACTAM SOD 3.375 GM in D5W MINI-BAG PLUS 50 ML IV SCH ×4 (02:46→20:15)
[2019-08-13] MEDS ORDERED: VANCOMYCIN HCL 1,000 MG, VIAL MATE ADAPTER 1 EACH in D5W 250 ML IV ONE (03:00)
[2019-08-13] MEDS: NORCO, ANEXSIA 5/325MG TABLET (HYDROcodone/ACETAMINOPHEN) PO PRN ×4 (03:12→20:15)
[2019-08-13 04:00] VITALS: BP 123/57
[2019-08-13 05:00] LABS: BASO % 0.2 % (0.0-1.0); EOS # 0.1 10^3/uL (0.0-0.5); EOS % 0.6 % (0.0-3.0); HEMATOCRIT 27.7 % (36.0-47.0); HEMOGLOBIN 9.1 g/dl (12.0-15.5); LYMPH # 1.2 10^3/uL (1.5-5.0); LYMPH % 10.9 % (24.0-44.0); MEAN CORPUSCULAR HGB CONC 32.9 g/dl (32.0-36.5); MEAN CORPUSCULAR VOLUME 94.2 fl (80.0-96.0); MONO # 0.8 10^3/uL (0.0-0.8); MONO % 7.5 % (0.0-5.0); NEUTROPHILS # 8.6 10^3/uL (1.5-8.5); NEUTROPHILS % 79.2 % (36.0-66.0); PLATELET COUNT, AUTOMATED 315 10^3/uL (150-450); RED BLOOD COUNT 2.94 10^6/uL (4.00-5.40); WHITE BLOOD COUNT 10.8 10^3/uL (4.0-10.0)
[2019-08-13 05:42] LABS: ALBUMIN 1.7 GM/DL (3.2-5.2); ALT/SGPT 24 U/L (12-78); BILIRUBIN,TOTAL 0.5 MG/DL (0.2-1.0); BLOOD UREA NITROGEN 6 MG/DL (7-18); CALCIUM LEVEL 7.4 MG/DL (8.5-10.1); CARBON DIOXIDE LEVEL 27 MEQ/L (21-32); CHLORIDE LEVEL 110 MEQ/L (98-107); CREATININE FOR GFR 0.54 MG/DL (0.55-1.30); GLOMERULAR FILTRATION RATE > 60.0 (>51); GLUCOSE, FASTING 135 MG/DL (70-100); SODIUM LEVEL 141 MEQ/L (136-145); TOTAL PROTEIN 5.6 GM/DL (6.4-8.2)
[2019-08-13 08:00] VITALS: BP 141/69
[2019-08-13] MEDS: HumaLOG INSULIN (NovoLOG) PER UNIT SC SCH ×4 (08:38→20:21)
[2019-08-13] MEDS: PANTOPRAZOLE 40MG TAB (PROTONIX) PO SCH (08:38)
[2019-08-13] MEDS: GABAPENTIN 300 MG CAP PO SCH ×3 (08:38→20:23)
[2019-08-13] MEDS ORDERED: FLUBLOK(EGG FREE)(QUAD)INFLUENZA VACC 0.5ML SYRINGE (90682)18YRS&OLDER IM ONE (09:00)
[2019-08-13] MEDS: VANCOMYCIN HCL 1,000 MG, VIAL MATE ADAPTER 1 EACH in D5W 250 ML IV SCH ×2 (11:50→23:43)
[2019-08-13 12:00] VITALS: BP 129/58
--- NOTE | 2019-08-13 19:59 | HPE ---
DATE OF ADMISSION: 08/12/2019 ADMITTING DIAGNOSIS: Sepsis secondary to acute cholecystitis with a preexisting cholecystostomy tube. HISTORY OF THE PRESENT ILLNESS: The patient is a pleasant 58-year-old woman, who had presented to the [facility] emergency department on 08/05/2019 with severe epigastric discomfort. She was found to have an elevation of her troponin to 3.67 and was transferred emergently to [facility] for diagnosis of acute myocardial infarction. At [facility], she apparently underwent a cardiac workup including an echocardiogram and a cardiac catheterization. The cardiac catheterization showed minimal plaque without any significant coronary artery disease with normal systolic function. Surgery was consulted, and she was diagnosed based on a nuclear scan as having acute cholecystitis. She underwent placement of a percutaneous cholecystostomy tube by interventional radiology. She was treated with antibiotics and discharged from [facility] on 08/09/2019. She was apparently discharged with a prescription for Augmentin to take for 4 days. Her cultures from [facility] from 08/06/2019, showed no anaerobes isolated on the anaerobic culture of the bile and no acid-fast bacilli either. However, the aerobic culture showed rare gram-positive rods on Gram stain, and the culture was reported as many normal jak consistent with specimen type, although I would have expected the bile to be sterile. She was seen for routine followup appointment with her primary physician on 08/12/2019. When she presented for that visit, she was found to be somewhat hypotensive and was complaining of some fevers at home. At the office, her temperature was noted to be 101.2 degrees. The reported blood pressure was 70/46, and she was sent directly to the emergency department for evaluation. In the emergency department, she received several liters of fluid. A CT scan of the abdomen and pelvis was obtained as well as some lab work. I was consulted to evaluate the patient regarding her issues, and she is now admitted for management. ALLERGIES: The patient has no known drug allergies. MEDICATIONS: Include Augmentin 875/125 tablets one twice a day. She is on vitamin C, atorvastatin, buprenorphine film, ferrous sulfate, gabapentin, NPH insulin 20 units subcu nightly at bedtime, lisinopril 2.5 mg by mouth daily, metformin 1000 mg by mouth twice daily, a multivitamin, oxycodone 5 mg by mouth every 4 hours as needed for pain, Protonix 40 mg by mouth daily, sumatriptan 100 mg by mouth twice daily as needed for migraine, Zanaflex 4 mg by mouth three times a day as needed for muscle spasms, trazodone 100 mg by mouth nightly. and vitamin D as well. MEDICAL HISTORY: Is significant for a past history of morbid obesity for which she underwent a gastric bypass. She has had multiple small subcutaneous tumors, probably lipomas, removed over the years. She has had some oral surgery as well. Medical history is significant for diabetes mellitus type 2. She has a history of migraine headaches. She has hypercholesterolemia. She has sleep apnea for which she uses a continuous positive airway pressure (CPAP) at night. She does have a history of her gastric bypass as well as a history of fibromyalgia. She also reports having had a bleed from a marginal ulcer in 2017. REVIEW OF SYSTEMS: The patient currently denies any chest pain. She denies any shortness of breath. She does report epigastric discomfort which has persisted but may be somewhat worsened today and yesterday from what it had been. She has the percutaneous drain in the right upper quadrant draining bile which she has been emptying daily. She denies any dysuria or hematuria. She has had no significant new bone or joint issues. She denies any history of deep venous thrombosis (DVT) or pulmonary embolus. FAMILY HISTORY: Is noncontributory. SOCIAL HISTORY: The patient is . She denies any tobacco use or significant alcohol intake. PHYSICAL EXAMINATION: The patient is lying quietly on the emergency room (ER) stretcher. She is alert and oriented. She does not appear to be in significant pain at the time I saw her. Most recent vital signs at the time I saw her showed a blood pressure of 109/55, pulse of 81, and a temperature of 98.3. Skin: Is warm and dry. Sclerae are anicteric. Mucous membranes are moist. The neck is supple without bruits. Heart: Exam shows a regular rate and rhythm, and she is not tachycardiac at about 80. Lungs are clear to auscultation bilaterally. The abdomen remains obese. She has a small pigtail-type catheter in the lateral right upper quadrant. This is draining some dark bile into an attached gravity bile bag. There is some turbidity noted. There is no blood. She has active bowel sounds. The abdomen is soft throughout, but she does have pain on palpation in the epigastrium. I would describe her tenderness has a mild to moderate in intensity and most severe right mid epigastrium. She also has some tenderness at the site of the drain. The lower quadrants are benign. Lower extremities: Show no peripheral edema. There is no calf tenderness. She has palpable radial and pedal pulses. LABORATORY STUDIES: Include a CBC showing a white count of 18.7, hemoglobin of 11, hematocrit of 32, and platelet count of 391,000. Differential count shows 85% neutrophils, 7% lymphocytes, and 6% monocytes. PT and INR are normal. Her chemistry panel shows a sodium of 135, potassium 3.9, chloride 97, CO2 of 27, BUN of 6, creatinine 0.6, and a glucose of 98. Her liver function tests are normal with a total protein of 6.0 and an albumin of 2.1. Lipase was 80. She had a lactic acid of 1.0. She has had blood cultures drawn but nobody has yet cultured her bile. She did have a CT scan of the abdomen and pelvis obtained. I reviewed these images personally. The CT scan confirms positioning of her percutaneous cholecystostomy tube within the gallbladder. She has some persistent inflammatory changes in the pericholecystic and subhepatic area. There are changes consistent with her gastric bypass. IMPRESSION": 1. Possible recurring sepsis secondary to acute cholecystitis with an indwelling cholecystostomy tube. 2. Status post gastric bypass. 3. Obesity. 4. Diabetes mellitus type 2. 5. Hypertension. 6. Hyperlipidemia. 7. Obstructive sleep apnea. 8. Fibromyalgia. PLAN: The patient is presenting with an elevated white count and fevers with a mildly to moderately depressed blood pressure at the time of her presentation at her primary physician's office. She still is fairly tender in the epigastrium. I think overall the findings are consistent with persistent infection related to her cholecystectomy and acute cholecystitis rather. The patient will be admitted to the hospital. I will ensure that a specimen from the bile drain has been sent for Gram stain and culture. She will be kept on a clear liquid diet initially with fingersticks and sliding scale insulin for management of her diabetes. We will hold her metformin as she has had intravenous (IV) contrast. She received a dose of Zosyn in the emergency department and I recommended also some vancomycin on the off chance that she has developed a methicillin-resistant Staphylococcus aureus (MRSA) infection following her instrumentation and multiple invasive procedures at [facility]. She will receive pain medication as needed. I will continue some of her regular medications, but other nonessential medications will be held for now. We will see how her cultures work out. She will be placed in the progressive care unit for closer monitoring of her pulse and blood pressure overnight, but whenever it is clear that she is stable enough, she will be moved to a regular medical-surgical floor.
[2019-08-13 20:00] VITALS: BP 128/66
[2019-08-13] MEDS: traZODone 100 MG TAB PO SCH (23:42)
--- NOTE | 2019-08-13 23:52 | PHACANCOPD ---
PHARMACY VANCOMYCIN DOSING Pt Demographics Demographics Patient Age:58 , Weight:122.200 , Gender: female Adjusted Body Weight Date: 08/12/19, Adjusted Body Weight: [85] Kg Vancomycin Vancomycin indication: SEPSIS Vancomycin Target Ranges: 15-20 mcg/ml Vancomycin Load Y/N: Yes Load Dose Date Time Vancomycin Load Dose: 1GM IN ER Date: 08/12/08 Time: 18:45 1GM on floor 08/13/19 03:00 Vancomycin Dose Date: 08/13/19. Current Vancomycin Dose: [1GM IV Q12H (11:00] Intermittent Dosing?: No Labs Micro Microbiology 08/12/19 Gram Stain - Final, Resulted 08/12/19 Body Fluid Culture, Resulted Pending 08/12/19 Blood Culture - Preliminary, Resulted No growth after 24 hours . All specim... 08/12/19 Blood Culture - Preliminary, Resulted No growth after 24 hours . All specim... Creatinine Clearance Date:08/12/19. Creatinine Clearance: [>35ml/min] BASED on a previous SCR. Pending Labs VANCO TROUGH 08/13 PRIOR TO 23:00 DOSE Assessment and Plan Maintaining Current Dose?: No Reason for dose change: Trough too low Pharmacist Note Pharmacist Note Date: 08/13/19. Pharmacist note:58YOF,NKDA,SCR=0.54,CRCL> 100,Septic secondary to acute cholecystitis.Current Vancomycin regimen= 1 gram IV [id number]. Trough drawn this evening= 7.1(GOAL=15-20).Will adjust current Vancomycin regimen to 1500mg IV [id number] to begin with tonight's dose @2300. Followup trough is scheduled for 08/14@2200. Will continue to follow labs and make dose/schedule adjustments as needed Date: 08/12/19. PharmD note: VANCO 1GM IV GIVEN IN THE ER 18:45 THIS EVENING. WE WILL REPEAT THE ONE TIME DOSE AT 03:00 08/13/19 TO COMPLETE A LOADING DOSE. WE WILL THEN CONTINUE WITH VANCO 1GM IV Q12H STARTING AT 11AM 08/13/19 FOLLOWED BY A VANCO TROUGH PRIOR TO HER 23:00 08/13/19 DOSE. DONALD DELGADO PHARMACY Aug 13, 2019 23:52
[2019-08-14] MEDS: VANCOMYCIN HCL 500 MG in D5W MINI-BAG PLUS 100 ML IV SCH ×2 (00:54→12:56)
[2019-08-14] MEDS: PIPERACILLIN/TAZOBACTAM SOD 3.375 GM in D5W MINI-BAG PLUS 50 ML IV SCH ×4 (02:23→19:59)
[2019-08-14 04:00] VITALS: BP 127/61
[2019-08-14] MEDS: MORPHINE 2 MG/ML 1ML VIAL (J2270) IV PRN ×5 (05:53→23:02)
[2019-08-14 06:00] VITALS: BP 116/72
[2019-08-14] MEDS: PANTOPRAZOLE 40MG TAB (PROTONIX) PO SCH (08:07)
[2019-08-14] MEDS: GABAPENTIN 300 MG CAP PO SCH ×3 (08:07→20:00)
[2019-08-14] MEDS: HumaLOG INSULIN (NovoLOG) PER UNIT SC SCH ×4 (08:08→21:00)
[2019-08-14 08:31] LABS: BASO % 0.2 % (0.0-1.0); EOS # 0.1 10^3/uL (0.0-0.5); EOS % 0.7 % (0.0-3.0); HEMATOCRIT 30.8 % (36.0-47.0); HEMOGLOBIN 9.8 g/dl (12.0-15.5); LYMPH # 1.1 10^3/uL (1.5-5.0); LYMPH % 12.6 % (24.0-44.0); MEAN CORPUSCULAR HEMOGLOBIN 30.2 pg (27.0-33.0); MEAN CORPUSCULAR HGB CONC 31.8 g/dl (32.0-36.5); MEAN CORPUSCULAR VOLUME 95.1 fl (80.0-96.0); MONO # 0.5 10^3/uL (0.0-0.8); MONO % 5.1 % (0.0-5.0); NEUTROPHILS # 7.3 10^3/uL (1.5-8.5); NEUTROPHILS % 80.4 % (36.0-66.0); PLATELET COUNT, AUTOMATED 347 10^3/uL (150-450); RED BLOOD COUNT 3.24 10^6/uL (4.00-5.40)
[2019-08-14 08:47] LABS: ALBUMIN 1.7 GM/DL (3.2-5.2); ALT/SGPT 18 U/L (12-78); BILIRUBIN,TOTAL 0.3 MG/DL (0.2-1.0); BLOOD UREA NITROGEN 3 MG/DL (7-18); CARBON DIOXIDE LEVEL 29 MEQ/L (21-32); CHLORIDE LEVEL 111 MEQ/L (98-107); GLOMERULAR FILTRATION RATE > 60.0 (>51); GLUCOSE, FASTING 126 MG/DL (70-100); LIPASE 114 U/L (73-393); POTASSIUM SERUM 4.1 MEQ/L (3.5-5.1); SODIUM LEVEL 144 MEQ/L (136-145); TOTAL PROTEIN 5.7 GM/DL (6.4-8.2)
[2019-08-14] MEDS: NORCO, ANEXSIA 5/325MG TABLET (HYDROcodone/ACETAMINOPHEN) PO PRN ×4 (09:11→21:58)
[2019-08-14 10:00] VITALS: BP 141/88
[2019-08-14] MEDS: VANCOMYCIN HCL 1,000 MG, VIAL MATE ADAPTER 1 EACH in D5W 250 ML IV SCH ×2 (11:44→23:02)
[2019-08-14 14:00] VITALS: BP 146/77
--- NOTE | 2019-08-14 14:18 | IPN ---
DATE: 08/14/2019 Patient is status post cholecystostomy tube in [place] and then was discharged to home and came in to our hospital with evidence of increasing pain, discomfort on the right side of her abdomen radiating to her back, with an elevated white count consistent with ongoing infection, most likely gallbladder/the tube itself. In any case, since she was admitted, she has been afebrile after the initial visit. Initial temperature and her white count has come down to normal today. She states her pain is better today than it was yesterday and she is tolerating a regular diet. On her physical exam, her cholecystostomy tube is draining bile quite nicely and over the last 24 hours, she had 350 mL of bile out. She has had some bowel movements. Otherwise, I am not seeing any evidence of cellulitis or infection around the tube itself. IMPRESSION AND PLAN: The patient evidence of cholecystitis most likely is the etiology of her recurrence of her admission. At this point, I would recommend continue her on antibiotics for the next 24-48 hours and then possibly discharge home with the cholecystostomy tube in place. Will continue her with her current treatment for now and I have encouraged the patient to ambulate more.
[2019-08-14 18:00] VITALS: BP 138/79
[2019-08-14 22:00] VITALS: BP 143/71
[2019-08-14] MEDS: traZODone 100 MG TAB PO SCH (22:01)
[2019-08-15] MEDS ORDERED: VANCOMYCIN HCL 1,000 MG, VIAL MATE ADAPTER 1 EACH in D5W 250 ML IV ONE ×3
[2019-08-15] MEDS: PIPERACILLIN/TAZOBACTAM SOD 3.375 GM in D5W MINI-BAG PLUS 50 ML IV SCH ×3 (01:11→14:47)
[2019-08-15] MEDS: MORPHINE 4 MG/ML 1ML VIAL/SYRINGE (J2270) IV PRN ×2 (01:27→08:41)
[2019-08-15 02:00] VITALS: BP 142/77
[2019-08-15] MEDS: NORCO, ANEXSIA 5/325MG TABLET (HYDROcodone/ACETAMINOPHEN) PO PRN ×2 (02:34→09:58)
--- NOTE | 2019-08-15 03:26 | PHACANCOPD ---
PHARMACY VANCOMYCIN DOSING Pt Demographics Demographics Patient Age:58 , Weight:121.600 , Gender: female Adjusted Body Weight Date: 08/12/19, Adjusted Body Weight: [85] Kg Vancomycin Vancomycin indication: SEPSIS Vancomycin Target Ranges: 15-20 mcg/ml Vancomycin Load Y/N: Yes Load Dose Date Time Vancomycin Load Dose: 1GM IN ER Date: 08/12/08 Time: 18:45 1GM on floor 08/13/19 03:00 Vancomycin Dose Date: 08/15/19. Current Vancomycin Dose: [1750 MG Q12H] Date: 08/13/19. Current Vancomycin Dose: [1GM IV Q12H (11:00] Intermittent Dosing?: No Labs Micro Microbiology 08/12/19 Gram Stain - Final, Complete 08/12/19 Body Fluid Culture - Final, Complete Escherichia Coli#2 Escherichia Coli 08/12/19 Blood Culture - Preliminary, Resulted No Growth after 48 hours. All Specime... 08/12/19 Blood Culture - Preliminary, Resulted No Growth after 48 hours. All Specime... Creatinine Clearance Date:08/12/19. Creatinine Clearance: [>35ml/min] BASED on a previous SCR. Assessment and Plan Maintaining Current Dose?: No Reason for dose change: Trough too low Pharmacist Note Pharmacist Note Date: 08/15/19. Pharmacist note:Vancomycin trough drawn08/14@2200 reported as 11.4 (still not at 15-20 goal),Will administer aditional 1 gram instead of the scheduled 500mg dose, then will begin 1750 mg q12h to begin with the 08/15 11am dose. Next trough is scheduled for 08/15@2200-will continue to follow Date: 08/13/19. Pharmacist note:58YOF,NKDA,SCR=0.54,CRCL> 100,Septic secondary to acute cholecystitis.Current Vancomycin regimen= 1 gram IV [id number]. Trough drawn this evening= 7.1(GOAL=15-20).Will adjust current Vancomycin regimen to 1500mg IV [id number] to begin with tonight's dose @2300. Followup trough is scheduled for 08/14@2200. Will continue to follow labs and make dose/schedule adjustments as needed Date: 08/12/19. PharmD note: VANCO 1GM IV GIVEN IN THE ER 18:45 THIS EVENING. WE WILL REPEAT THE ONE TIME DOSE AT 03:00 08/13/19 TO COMPLETE A LOADING DOSE. WE WILL THEN CONTINUE WITH VANCO 1GM IV Q12H STARTING AT 11AM 08/13/19 FOLLOWED BY A VANCO TROUGH PRIOR TO HER 23:00 08/13/19 DOSE. DONALD DELGADO PHARMACY Aug 15, 2019 03:26
[2019-08-15 06:00] VITALS: BP 100/64
[2019-08-15] MEDS: PANTOPRAZOLE 40MG TAB (PROTONIX) PO SCH (08:43)
[2019-08-15] MEDS: GABAPENTIN 300 MG CAP PO SCH ×3 (08:43→21:20)
[2019-08-15] MEDS: HumaLOG INSULIN (NovoLOG) PER UNIT SC SCH ×4 (08:44→21:00)
[2019-08-15] MEDS: VANCOMYCIN HCL 1,000 MG, VIAL MATE ADAPTER 1 EACH in D5W 250 ML IV SCH ×2 (09:58→22:22)
[2019-08-15 10:00] VITALS: BP 153/77
[2019-08-15] MEDS ORDERED: PERCOCET 5MG/325MG TAB PO PRN (10:15)
[2019-08-15] MEDS: PERCOCET 5MG/325MG TAB PO PRN ×3 (13:04→22:24)
[2019-08-15] MEDS: VANCOMYCIN HCL 750 MG, VIAL MATE ADAPTER 1 EACH in D5W 250 ML IV SCH (13:05)
[2019-08-15 14:00] VITALS: BP 144/77
[2019-08-15] MEDS: CIPROFLOXACIN 500 MG TAB PO SCH (17:21)
[2019-08-15 18:00] VITALS: BP 143/68
--- NOTE | 2019-08-15 19:11 | IPN ---
DATE: 08/15/2019 Patient is here for admission after a cholecystostomy tube was in place and overall from a laboratory standpoint, she has been continuing down to a normal CBC at this point, she has not had any significant liver function test abnormalities. And overall her vital signs have been stable, she has been afebrile. She still complains of right flank pain however. Her drainage is still bilious drainage and seems to have good output from this and otherwise seems to be doing adequately well. Otherwise her abdomen is soft, nontender, nondistended. IMPRESSION AND PLAN: The patient seems to be doing adequately at this time. My recommendation is that we have her continue on some by mouth Cipro, continue on her vancomycin for right now and then discharge her to home when she is comfortable.
[2019-08-15 20:00] VITALS: BP 146/74
[2019-08-15] MEDS: traZODone 100 MG TAB PO SCH (22:22)
--- NOTE | 2019-08-15 23:35 | PHACANCOPD ---
PHARMACY VANCOMYCIN DOSING Pt Demographics Demographics Patient Age:58 , Weight:121.600 , Gender: female Adjusted Body Weight Date: 08/12/19, Adjusted Body Weight: [85] Kg Vancomycin Vancomycin indication: SEPSIS Vancomycin Target Ranges: 15-20 mcg/ml Vancomycin Load Y/N: Yes Load Dose Date Time Vancomycin Load Dose: 1GM IN ER Date: 08/12/08 Time: 18:45 1GM on floor 08/13/19 03:00 Vancomycin Dose Date: 08/15/19. Current Vancomycin Dose: [1750 MG Q12H] Date: 08/13/19. Current Vancomycin Dose: [1GM IV Q12H (11:00] Intermittent Dosing?: No Labs Micro Microbiology 08/12/19 Gram Stain - Final, Complete 08/12/19 Body Fluid Culture - Final, Complete Escherichia Coli#2 Escherichia Coli 08/12/19 Blood Culture - Preliminary, Resulted No Growth after 72 hours. All specime... 08/12/19 Blood Culture - Preliminary, Resulted No Growth after 72 hours. All specime... Creatinine Clearance Date:08/12/19. Creatinine Clearance: [>35ml/min] BASED on a previous SCR. Assessment and Plan Maintaining Current Dose?: Yes Reason for dose change: No Dose Change Pharmacist Note Pharmacist Note Date: 08/15/19. Pharmacist note:Vancomycin trough drawn this evening @ 22:05 reported as 13.9.(goal= 15-20)No a.m labs for today to assess, so will maintain current Vancomycin regimen (1750mg IV [id number]) for now, and will continue to follow labs and make dose adjustments as needed Date: 08/15/19. Pharmacist note:Vancomycin trough drawn08/14@2200 reported as 11.4 (still not at 15-20 goal),Will administer aditional 1 gram instead of the scheduled 500mg dose, then will begin 1750 mg q12h to begin with the 08/15 11am dose. Next trough is scheduled for 08/15@2200-will continue to follow Date: 08/13/19. Pharmacist note:58YOF,NKDA,SCR=0.54,CRCL> 100,Septic secondary to acute cholecystitis.Current Vancomycin regimen= 1 gram IV [id number]. Trough drawn this evening= 7.1(GOAL=15-20).Will adjust current Vancomycin regimen to 1500mg IV [id number] to begin with tonight's dose @2300. Followup trough is scheduled for 08/14@2200. Will continue to follow labs and make dose/schedule adjustments as needed Date: 08/12/19. PharmD note: VANCO 1GM IV GIVEN IN THE ER 18:45 THIS EVENING. WE WILL REPEAT THE ONE TIME DOSE AT 03:00 08/13/19 TO COMPLETE A LOADING DOSE. WE WILL THEN CONTINUE WITH VANCO 1GM IV Q12H STARTING AT 11AM 08/13/19 FOLLOWED BY A VANCO TROUGH PRIOR TO HER 23:00 08/13/19 DOSE. DONALD DELGADO PHARMACY Aug 15, 2019 23:35
[2019-08-16] VITALS (7 sets, daily range): BP systolic 114–180; BP diastolic 70–89
[2019-08-16] MEDS: VANCOMYCIN HCL 750 MG, VIAL MATE ADAPTER 1 EACH in D5W 250 ML IV SCH ×2 (00:14→13:37)
[2019-08-16] MEDS: PERCOCET 5MG/325MG TAB PO PRN ×4 (03:58→21:44)
[2019-08-16] MEDS: CIPROFLOXACIN 500 MG TAB PO SCH ×2 (05:53→18:15)
[2019-08-16] MEDS: HumaLOG INSULIN (NovoLOG) PER UNIT SC SCH ×4 (08:01→21:00)
[2019-08-16] MEDS: GABAPENTIN 300 MG CAP PO SCH ×3 (08:09→21:44)
[2019-08-16] MEDS: PANTOPRAZOLE 40MG TAB (PROTONIX) PO SCH (08:10)
[2019-08-16] MEDS: VANCOMYCIN HCL 1,000 MG, VIAL MATE ADAPTER 1 EACH in D5W 250 ML IV SCH (11:22)
--- NOTE | 2019-08-16 18:52 | IPN ---
DATE: 08/16/2019 HISTORY: The patient was admitted on August 12, 2019 with abdominal pain with fevers, an elevated white count and suggestion of some hypotension. She had had a cholecystostomy tube placed in [place] approximately a week earlier. Her cultures over the weekend were reported as growing two different varieties of Escherichia (E) coli, both of which were resistant to ampicillin. She had been on vancomycin and piperacillin-tazobactam. Over the weekend, my partner converted the piperacillin-tazobactam to oral Cipro. Today the vancomycin was stopped as she has had no gram-positive growth from her cultures. The patient reports she is having some pain in the right side of her back as her most annoying symptom at this time. Vital signs: Show that she has been afebrile. Her pulse is in the 60s and 70s and her blood pressure is normal. Intake and output show that yesterday she had 2000 mL in with 275 mL of output from her bile drain and three voids recorded. PHYSICAL EXAMINATION: The patient is lying quietly in the hospital bed. She is alert and oriented. She does not appear outwardly uncomfortable. Skin is warm and dry. Sclerae are anicteric. Heart exam shows a regular rate and rhythm. The abdomen is obese. Her drain site in the right upper quadrant appears clean, and there is some bile in the bile bag. She has some very mild direct tenderness high in the epigastrium. The abdomen is otherwise soft and without significant tenderness. She does have some tenderness around the drain site on the right. The patient has no new laboratory studies since August 14, 2019. Her bile cultures as noted grew two varieties of E-coli. The blood cultures were no growth at 72 hours. IMPRESSION: The patient continues to complain of some pain mostly in the back, but also to a lesser extent in the epigastrium. She has been afebrile for several days. Her last white count was normal, though her neutrophil count was still somewhat elevated and that was on the August 14, 2019. She is also complaining of some evidence of a yeast infection in the genital area. PLAN: The patient's vancomycin was stopped today, and she will continue the Cipro. I will recheck a CBC with a differential (diff), and a chemistry profile in the morning. She can remain on the oral analgesics as necessary or small doses of morphine if absolutely needed. I will start her on some Diflucan 150 mg by mouth daily. If her labs suggest continuing infection, and I will also add a CRP to her labs for the morning, then a repeat scan may be appropriate at this point.
[2019-08-16] MEDS: FLUCONAZOLE 50MG TABLET PO SCH (19:20)
[2019-08-16] MEDS: traZODone 100 MG TAB PO SCH (22:51)
[2019-08-17 02:00] VITALS: BP 140/83
[2019-08-17] MEDS: CIPROFLOXACIN 500 MG TAB PO SCH (05:35)
[2019-08-17] MEDS: PERCOCET 5MG/325MG TAB PO PRN ×3 (05:35→13:55)
[2019-08-17 06:00] VITALS: BP 141/83
[2019-08-17 06:59] LABS: BASO # 0.1 10^3/uL (0.0-0.2); BASO % 0.5 % (0.0-1.0); EOS # 0.1 10^3/uL (0.0-0.5); EOS % 1.1 % (0.0-3.0); HEMATOCRIT 37.7 % (36.0-47.0); HEMOGLOBIN 12.1 g/dl (12.0-15.5); LYMPH # 2.4 10^3/uL (1.5-5.0); MEAN CORPUSCULAR HGB CONC 32.1 g/dl (32.0-36.5); MEAN CORPUSCULAR VOLUME 96.7 fl (80.0-96.0); MONO # 0.5 10^3/uL (0.0-0.8); MONO % 5.2 % (0.0-5.0); NEUTROPHILS % 68.6 % (36.0-66.0); PLATELET COUNT, AUTOMATED 463 10^3/uL (150-450); WHITE BLOOD COUNT 10.2 10^3/uL (4.0-10.0)
[2019-08-17 07:35] LABS: ALBUMIN 2.4 GM/DL (3.2-5.2); ALT/SGPT 20 U/L (12-78); BILIRUBIN,TOTAL 0.2 MG/DL (0.2-1.0); BLOOD UREA NITROGEN 5 MG/DL (7-18); C REACTIVE PROTEIN QUANTITATIV 1.67 MG/DL (0.00-0.30); CALCIUM LEVEL 9.1 MG/DL (8.5-10.1); CARBON DIOXIDE LEVEL 29 MEQ/L (21-32); CHLORIDE LEVEL 106 MEQ/L (98-107); CREATININE FOR GFR 0.66 MG/DL (0.55-1.30); GLOMERULAR FILTRATION RATE > 60.0 (>51); GLUCOSE, FASTING 120 MG/DL (70-100); POTASSIUM SERUM 4.5 MEQ/L (3.5-5.1); SODIUM LEVEL 140 MEQ/L (136-145); TOTAL PROTEIN 7.5 GM/DL (6.4-8.2)
[2019-08-17] MEDS: HumaLOG INSULIN (NovoLOG) PER UNIT SC SCH ×2 (08:03→11:59)
[2019-08-17] MEDS: GABAPENTIN 300 MG CAP PO SCH (08:24)
[2019-08-17] MEDS: PANTOPRAZOLE 40MG TAB (PROTONIX) PO SCH (08:24)
[2019-08-17] MEDS: FLUCONAZOLE 50MG TABLET PO SCH (08:25)
[2019-08-17 10:00] VITALS: BP 149/76
[2019-08-17] MEDS ORDERED: CIPR-249 PO (12:52)
[2019-08-17] MEDS ORDERED: PERCOCET PO (12:52)
[2019-08-17 14:00] VITALS: BP 140/85
== END 2019-08-17 15:35 | disposition home or self-care (01) | DRG 871 ==
LOC: M ED 12:17 → M ED INP 18:00 → M PCU 22:29 → M MSPAV 08-14 05:27
PROVIDERS: ADMIT Surgery; ATTEND Surgery
DX: A41.9 Sepsis, unspecified organism (principal); I21.4 Non-ST elevation (NSTEMI) myocardial infarction; E66.9 Obesity, unspecified; Z98.84 Bariatric surgery status; E11.9 Type 2 diabetes mellitus without complications; G43.909 Migraine, unspecified, not intractable, without status migrainosus; E78.00 Pure hypercholesterolemia, unspecified; G47.30 Sleep apnea, unspecified; M79.7 Fibromyalgia; B96.20 Unspecified Escherichia coli [E. coli] as the cause of diseases classified elsewhere; Z68.38 Body mass index [BMI] 38.0-38.9, adult

== ENCOUNTER 2019-09-23 10:33 | Day surgery (SDC) | payer MEDICARE ==
[~2019-09-23] VITALS: Ht 177.8 cm; Wt 117.0 kg
[~2019-09-23 10:33] MED LIST changes: +AUGM875T28 PO; +C-101TAB PO; +CIPR-249 PO; +INSUR SC; +LIDOCAINE 1% MDV 20ML VIAL SQ PRN; +LISI-1046 PO; +LR 1,000 ML IV ONE; +PANT-23 PO; +PERCOCET PO; +PIPERACILLIN/TAZOBACTAM SOD 3.375 GM in D5W MINI-BAG PLUS 50 ML IV ONE
[2019-09-23] MEDS ORDERED: MIDAZOLAM INJ 2 MG/2 ML VIAL (J2250) As Ordered ONE (10:57)
[2019-09-23] MEDS ORDERED: fentaNYL 250 MCG/5 ML INJECTION (J3010) As Ordered ONE (10:57)
[2019-09-23] MEDS ORDERED: dexameTHASONE 4 MG/ML 1ML VIAL (J1100) As Ordered ONE (10:58)
[2019-09-23] MEDS ORDERED: ONDANSETRON 4MG/2ML VIAL (J2405) As Ordered ONE (10:58)
[2019-09-23] MEDS ORDERED: KETOROLAC 60 MG/2 ML VIAL (J1885) As Ordered ONE (10:58)
[2019-09-23] MEDS ORDERED: LIDOCAINE 2% INJ 100 MG/5 ML SDV (FOR ANES.) As Ordered ONE (10:58)
[2019-09-23] MEDS ORDERED: ROCURONIUM BROMIDE 50 MG/5 ML VIAL As Ordered ONE ×4 (10:58→15:17)
[2019-09-23] MEDS ORDERED: PROPOFOL 200 MG/20 ML VIAL As Ordered ONE ×2 (10:58→16:15)
[2019-09-23] MEDS ORDERED: BUPIVACAINE HCL 0.25% 30 ML VIAL As Ordered ONE (12:30)
[2019-09-23] MEDS ORDERED: ACETAMINOPHEN 1000MG 100ML IV BTL (OFIRMEV) (J0131 PER 10MG) As Ordered ONE (13:15)
[2019-09-23] MEDS ORDERED: LABETALOL HCL 100 MG/20 ML VIAL As Ordered ONE (13:58)
[2019-09-23] MEDS ORDERED: ePHEDrine SULFATE 25 MG/5 ML(5MG/ML) SYRINGE As Ordered ONE (14:08)
[2019-09-23] MEDS ORDERED: SUGAMMADEX SODIUM 500 MG/5 ML VIAL (BRIDION) As Ordered ONE (14:08)
[2019-09-23] MEDS ORDERED: fentaNYL 100 MCG/2 ML INJECTION (J3010) As Ordered ONE ×2 (14:35→16:56)
[2019-09-23] MEDS: PERCOCET 5MG/325MG TAB PO PRN ×3 (16:56→20:07)
[2019-09-23] MEDS: fentaNYL 100 MCG/2 ML INJECTION (J3010) IV PRN ×4 (16:56→17:11)
[2019-09-23] MEDS ORDERED: PERCOCET 5MG/325MG TAB As Ordered ONE (16:56)
[2019-09-23] MEDS ORDERED: HYDROMORPHONE HCL 0.5 MG/ 0.5 ML SYRINGE (J1170 PER 1) IV PRN (17:15)
[2019-09-23] MEDS ORDERED: ACETAMINOPHEN TAB 650MG DOSE (2X325MG) PO PRN ×2 (17:15→18:00)
[2019-09-23] MEDS ORDERED: LR 1,000 ML IV SCH (17:15)
[2019-09-23] MEDS ORDERED: ONDANSETRON 4MG/2ML VIAL (J2405) IV PRN ×2 (17:15→18:00)
[2019-09-23] MEDS ORDERED: METOCLOPRAMIDE INJ 10MG/2ML VIAL (J2765) IV PRN (18:00)
[2019-09-23] MEDS ORDERED: SUMAtriptan SUCCINATE 25 MG TAB PO PRN (18:00)
[2019-09-23] MEDS ORDERED: PERCOCET 5MG/325MG TAB PO PRN (18:00)
[2019-09-23] MEDS ORDERED: KETOROLAC 30 MG/ML VIAL (J1885) IV PRN (18:00)
[2019-09-23] MEDS: LR 1,000 ML IV SCH (18:09)
[2019-09-23] MEDS: PIPERACILLIN/TAZOBACTAM SOD 3.375 GM in D5W MINI-BAG PLUS 50 ML IV SCH (18:44)
[2019-09-23 19:42] VITALS: BP 154/78
[2019-09-23] MEDS: GABAPENTIN 300 MG CAP PO SCH (20:06)
[2019-09-23] MEDS ORDERED: HumaLOG INSULIN (NovoLOG) PER UNIT SC SCH (21:00)
[2019-09-23] MEDS ORDERED: traZODone 100 MG TAB PO SCH (21:00)
[2019-09-23 21:17] VITALS: BP 124/69
[2019-09-23] MEDS: MORPHINE 2 MG/ML 1ML VIAL (J2270) IV PRN (22:56)
[2019-09-24] MEDS: PIPERACILLIN/TAZOBACTAM SOD 3.375 GM in D5W MINI-BAG PLUS 50 ML IV SCH ×3 (01:06→13:00)
[2019-09-24] MEDS: PERCOCET 5MG/325MG TAB PO PRN ×3 (01:07→13:55)
[2019-09-24] MEDS: LR 1,000 ML IV SCH (01:08)
[2019-09-24 02:00] VITALS: BP 130/62
[2019-09-24 06:36] LABS: BASO % 0.2 % (0.0-1.0); EOS % 0.3 % (0.0-3.0); HEMATOCRIT 36.1 % (36.0-47.0); HEMOGLOBIN 11.5 g/dl (12.0-15.5); LYMPH # 1.4 10^3/uL (1.5-5.0); LYMPH % 16.1 % (24.0-44.0); MEAN CORPUSCULAR HEMOGLOBIN 30.8 pg (27.0-33.0); MEAN CORPUSCULAR HGB CONC 31.9 g/dl (32.0-36.5); MEAN CORPUSCULAR VOLUME 96.8 fl (80.0-96.0); MONO # 0.6 10^3/uL (0.0-0.8); MONO % 6.4 % (0.0-5.0); NEUTROPHILS # 6.7 10^3/uL (1.5-8.5); NEUTROPHILS % 76.8 % (36.0-66.0); PLATELET COUNT, AUTOMATED 182 10^3/uL (150-450); RED BLOOD COUNT 3.73 10^6/uL (4.00-5.40); WHITE BLOOD COUNT 8.7 10^3/uL (4.0-10.0)
[2019-09-24 06:50] VITALS: BP 122/66
[2019-09-24 07:06] LABS: ALBUMIN 2.9 GM/DL (3.2-5.2); ALT/SGPT 56 U/L (12-78); BILIRUBIN,TOTAL 0.3 MG/DL (0.2-1.0); BLOOD UREA NITROGEN 11 MG/DL (7-18); CALCIUM LEVEL 8.6 MG/DL (8.5-10.1); CARBON DIOXIDE LEVEL 31 MEQ/L (21-32); CHLORIDE LEVEL 104 MEQ/L (98-107); CREATININE FOR GFR 0.78 MG/DL (0.55-1.30); GLOMERULAR FILTRATION RATE > 60.0 (>51); GLUCOSE, FASTING 188 MG/DL (70-100); POTASSIUM SERUM 4.3 MEQ/L (3.5-5.1); SODIUM LEVEL 139 MEQ/L (136-145); TOTAL PROTEIN 6.7 GM/DL (6.4-8.2)
[2019-09-24] MEDS: GABAPENTIN 300 MG CAP PO SCH (08:27)
[2019-09-24 08:28] VITALS: BP 123/60
[2019-09-24] MEDS: HumaLOG INSULIN (NovoLOG) PER UNIT SC SCH ×2 (08:29→12:40)
[2019-09-24] MEDS ORDERED: LISINOPRIL *2.5 MG* TAB PO SCH (09:00)
[2019-09-24] MEDS ORDERED: ATORVASTATIN 10 MG TAB PO SCH (09:00)
[2019-09-24] MEDS ORDERED: metFORMIN XR 500MG TAB *GLUCOPHAGE XR PO SCH (09:00)
[2019-09-24] MEDS ORDERED: PANTOPRAZOLE 40MG TAB (PROTONIX) PO SCH (09:00)
[2019-09-24 10:00] VITALS: BP 122/60
--- NOTE | 2019-09-24 10:04 | RO ---
DATE OF PROCEDURE: 09/23/2019 PREOPERATIVE DIAGNOSIS: Recent acute cholecystitis status post cholecystostomy. POSTOPERATIVE DIAGNOSIS: Acute and chronic cholecystitis with cholecystostomy. PROCEDURE PERFORMED: Robotic-assisted laparoscopic cholecystectomy with lysis of adhesions. SURGEON: Dr. Deshaun Arshad INNER TUBE CUTTER: Tamika Whatley, nurse practitioner (Tamika was essential to the procedure in assisting with placement of ports, changing of instruments, and general positioning of the robot). ANESTHESIA: General. INDICATIONS FOR THE PROCEDURE: The patient is a 58-year-old woman with obesity and diabetes who developed severe epigastric pain in late July. She was initially thought to be having a myocardial infarction and was transferred to [place] where she underwent cardiac evaluation with no significant coronary disease identified. She was found to have acute cholecystitis and a small caliber cholecystostomy tube was placed. She has had the tube in place since then and it had for quite sometime been draining clear bile, but recently has drained only some turbid yellowish fluid. She is now for a robotic-assisted laparoscopic cholecystectomy. OPERATIVE PROCEDURE: The patient was brought to the operating room and placed supine on the operating table. Her indwelling drain was undressed and the bag was directed off the right side of the abdomen. The patient was placed under general endotracheal anesthesia. The patient's abdomen was prepped and draped in a sterile fashion. 0.25% Marcaine was infiltrated at the trocar sites as needed. Four trocar sites were marked on the skin with a skin marker beginning in the left upper quadrant and extending across the suprapubic area with two in the right lower quadrant. Initial entry was in the left upper quadrant where a short incision was made and the Veress needle was inserted. After a positive hanging drop test, the abdomen was insufflated with carbon dioxide gas. An 8 mm robotic port was placed over a 5 mm scope and advanced through the abdominal wall without difficulty. Initial inspection showed some filmy adhesions in the right upper quadrant. The drain tract was identified as an area of adhesions between the edge of the liver and the anterior abdominal wall. The visualized portions of the stomach and small and large bowel were normal. Three additional ports were placed. One was just above the umbilicus and two were spaced into the right lower quadrant. The patient cart of the [employer] robot was brought into position and the camera port which was the supraumbilical port was docked. Targeting took place and the additional arms were then docked. A grasping retractor was placed in the lowest right lower quadrant port. A force bipolar was placed as well as a hook cautery. Inspection took place in the right upper quadrant. There were fairly extensive filmy adhesions between the right lobe of the liver and the diaphragm and between the liver and the omentum inferiorly. The gallbladder appeared to be quite thickened, but shrunken and markedly scarred. There was significant acute inflammatory change remaining. The filmy adhesions were broken apart by a combination of blunt and cautery dissection. It was impossible to grasp of the gallbladder because of the extensive scarring and thickening of the gallbladder wall. Using the hook cautery, the peritoneal surface circumferentially around the fundus of the gallbladder and the midbody was scored and I attempted to identify a plane between the liver and the gallbladder wall for dissection. In the course of dissection, a small opening was created in the gallbladder and some thick yellowish turbid fluid was released into the subhepatic space. Some of this was collected with a suction device and sent for Gram stain and culture and sensitivity. With further dissection, I would note that it was very difficult to identify a distinct plane. The gallbladder was entered a second time and was found to contain a thick layer or cast of bilious appearing debris. The wall of the gallbladder was quite thickened up to 6 or 8 mm. After working for some time to try to free the gallbladder, I elected to remove the free wall of the fundus, and so this was undertaken using a combination of cautery dissection and sharp dissection with the cauterizing scissors. As the gallbladder was opened, the cast of material was removed. A significant portion of the anterior wall was removed as one portion. The drain in the gallbladder was identified and this was cut off and the portion within the gallbladder was passed off with the specimen and the remaining portion was removed by the staff at the bedside. A specimen retrieval bag was inserted and a portion of the gallbladder wall and the drain and the cast of material from within the gallbladder were all placed within it. Inspection of the opened gallbladder showed a thick layer of what appeared to be granulation tissue lining the gallbladder. Much of this was debrided using the suction automatic data processing planner to remove this tissue. There was bile returning through the distal body and neck of the gallbladder that remained intact in the gallbladder bed. I began to dissect this and in the course of trying to identify the medial edge a small artery was partially transected with bleeding which was controlled by grasping the artery. As bleeding was controlled in this manner, it was possible to dissect around this area and identify what appeared to be the cholecystic artery. It was possible to create a space to place a clip and a Hem-o-amari clip was placed on the artery. Further dissection was undertaken and after ensuring that this represented the cholecystic artery this was divided with cauterizing scissors. With further dissection, the cystic duct was identified after working through some significant scar tissue. This was doubly clipped with Hem-o-amari clips and divided. This portion of the gallbladder was dissected free and then also placed into the specimen retrieval pouch. The right upper quadrant was then copiously irrigated to remove any bile or blood. Some remaining granulation tissue within the gallbladder was suctioned and removed. A number of small bleeding points were controlled with the hook cautery. A small area that appeared to represent residual mucosa in a patch near the gallbladder neck was cauterized with the hook cautery. The area was then irrigated copiously and inspected for bleeding and none was identified. There was no sign of bile leak. A 19-Serbian Terence drain was inserted through the lateral right lower quadrant port site and this was placed in the subhepatic space and directed inferiorly along the ascending colon and out the trocar site. The patient was returned to a flat position as she had been placed into a steeper reverse Trendelenburg position for exposure. The robot was undocked. The specimen retrieval bag was grasped through the supraumbilical site. The abdomen was deflated and the trocars were all removed. The specimen retrieval bag was delivered through the supraumbilical site which necessitated extending the incision somewhat. The fascia at the supraumbilical site was closed with interrupted simple sutures of #0 Vicryl. The drain was sutured to the skin with a #2-0 silk and covered with a chlorhexidine gluconate OpSite. This was then connected to a Дмитрий-Gomez bulb. The skin incisions were otherwise closed with buried #4-0 Vicryl and Steri-Strips. Light dressings were applied. The patient tolerated the procedure well without apparent complication. She was awakened in the operating room, extubated and moved to the recovery room in stable condition.
[2019-09-24] MEDS ORDERED: PERCOCET PO (11:39)
[2019-09-24] MEDS ORDERED: LEVA1TAB2 PO (11:39)
[2019-09-24] MEDS: MORPHINE 2 MG/ML 1ML VIAL (J2270) IV PRN (12:39)
--- NOTE | 2019-09-24 18:12 | IPN ---
DATE: 09/24/2019 HISTORY: The patient is now postoperative day #1 from a robotic-assisted laparoscopic cholecystectomy for acute cholecystitis, which had been diagnosed some 6-7 weeks ago and treated with cholecystostomy tube. At surgery she had a markedly scarred and yet still inflamed gallbladder containing some purulent-appearing fluid. Gallbladder was removed in pieces, but it was possible to identify the cholecystic artery and the cystic duct, and these were controlled with clips. A drain was placed. VITAL SIGNS: The patient has been afebrile since surgery. Her pulse is in the 70s to mid 90s, and her blood pressure is excellent. Intake and output shows that yesterday she had 21 00 in with 1700 out, and she has had a liter of urine output recorded this morning. Her drain has had only a small amount and has perhaps 20 mL of pinkish fluid in the bulb now. PHYSICAL EXAMINATION: The patient is alert and appears quite comfortable. Heart exam shows a regular rhythm. The lungs are clear. The abdomen is obese. Her dressings are all dry. The chlorhexidine gluconate OpSite at the drain site is intact. She reports there had been a small amount of bleeding from beneath this dressing, but this seems to have stopped. The bulb has a small amount of serosanguineous fluid. The abdomen is without any undue tenderness. Laboratory studies show this morning that she had a white count of 9, hemoglobin of 12, hematocrit of 36, and a platelet count 182,000. Her differential count showed 77% neutrophils, 16% lymphocytes, and 6% monocytes. Chemistry profile showed normal electrolytes, BUN, creatinine, and a glucose of 188. Liver function tests are without significant abnormality. IMPRESSION: Patient is doing very well postoperative day #1 from her very difficult laparoscopic cholecystectomy for acute and chronic cholecystitis. There was spillage of gallbladder contents during the procedure, and she was kept on antibiotics postoperatively because of this. PLAN: The patient appears ready for discharge and will be sent home. She will take the drain with her and was instructed to empty this two or three times a day and record the output as needed. I will give her prescription for Levaquin for 5 days just to cover the spillage from her gallbladder. She will be provided a prescription for Percocet to take one every 4-6 hours with a maximum daily dose of four, and as she will be provided with 12 tablets. I spoke with Dr. Rubio of the pain center yesterday, he had recommended that she stop her Belbuca mucosal patches for the next 2 days so that this would not interfere with her pain relief over the first couple days. The patient can eat as desired. I advised her that she could shower but should try to protect the site at the drain insertion point. She was advised to avoid any strenuous physical activity and call for any problems. I will plan on seeing her back in the office this coming Friday, the .
== END 2019-09-24 14:00 | disposition home or self-care (01) ==
LOC: M SDC 10:33 → M MS5PR 17:50 → M SDC 09-24 14:00
PROVIDERS: ATTEND Surgery
DX: K81.2 Acute cholecystitis with chronic cholecystitis (principal); Z93.4 Other artificial openings of gastrointestinal tract status; K66.0 Peritoneal adhesions (postprocedural) (postinfection); I97.52 Accidental puncture and laceration of a circulatory system organ or structure during other procedure; K91.81 Other intraoperative complications of digestive system; E10.9 Type 1 diabetes mellitus without complications; Z87.19 Personal history of other diseases of the digestive system; M79.7 Fibromyalgia; K21.9 Gastro-esophageal reflux disease without esophagitis; D64.9 Anemia, unspecified; R53.1 Weakness; M54.9 Dorsalgia, unspecified; G43.909 Migraine, unspecified, not intractable, without status migrainosus; G47.33 Obstructive sleep apnea (adult) (pediatric); E78.00 Pure hypercholesterolemia, unspecified; Z87.891 Personal history of nicotine dependence; Z98.84 Bariatric surgery status; Z79.899 Other long term (current) drug therapy
CPT/HCPCS: 36415; 47562; 80053; 85025; 87070; 87205; 88304; 96365; 96375; 96376; J0131; J1100; J1170; J1885; J2250; J2270; J2405; J2543; J3010

== ENCOUNTER → 2019-09-27 | Outpatient (CLI) | payer MEDICARE ==
[~2019-09-27] MED LIST changes: +LEVA1TAB2 PO; -LIDOCAINE 1% MDV 20ML VIAL SQ PRN; -LR 1,000 ML IV ONE; -PIPERACILLIN/TAZOBACTAM SOD 3.375 GM in D5W MINI-BAG PLUS 50 ML IV ONE
--- NOTE | 2019-10-08 01:14 | ECWPNPC ---
PATIENT NAME: ANGEL WILSON : 1960 GENDER: FEMALE VISIT DATE: 09/27/2019 DISCHARGE DATE: 09/27/19 1502 VISIT LOCKED DATE TIME: PHYSICIAN: RADHA CRUZ RESOURCE: RADHA CRUZ REASON FOR APPOINTMENT 1. PER DR Camarena ON 09/23/19 HISTORY OF PRESENT ILLNESS HISTORY OF PRESENT ILLNESS: HERE FOR F/U OF CHRONIC LBP AND NECK PAIN.HAD SEPSIS SECONDARY TO CHOLECYSTITIS LAST MONTH AND WAS HOSPITALIZED IN ICU FOR SEVERAL DAYS IN EDCOUCH.UNDERWENT ROBOTIC ASSISTED CHOLECYSTECTOMY.STATES SHE HAD TO STAY OVERNIGHT DUE TO NEED FOR IV ANTIBIOTICS.DR CARROLL SPOKE WITH DR Lakshmi SHEFFIELD LAST WEEK AND PATIENT WAS TO STOP BELBUCA AND RECIEVE OXYCODONE 5/[address] CARROLL FOR POST OPERATIVE PAIN.TODAY PATIENT IS HERE PER DR POLK REQUEST FOR F/U.SHE IS QUITE UNCOMFORTABLE WITH CHIEF AREA OF PAIN BEING RIGHT LOW ABDOMEN AND TRAVELING INTO RIGHT GROIN.SHE WILL BE SEEING DR CARROLL TODAY FOR THIS UNCONTROLLED POST OPERATIVE PAIN.SHE HAS RESTARTED BELBUCA YESTERDAY FOR HER CHRONIC NECK AND LBP. PAIN THE PATIENT DESCRIBES THE PAIN... FALL RISK SCREENING: SCREENING :NO FALLS REPORTED IN THE LAST YEAR CURRENT MEDICATIONS TAKING HAIR SKIN AND NAILS FORMULA - TABLET 1 CAP ORALLY THREE TIMES DAILY TAKING CPAP MASK DIRECTED _ DAILY ICD10 G47.33 TAKING VITAMIN C 1000 MG TABLET 1 TABLET ORALLY BID TAKING BD INSULIN SYRINGE 30G X 1/2 MISCELLANEOUS 1 INJECTION _ FOUR TIMES DAILY ICD10 E11.65 TAKING INSULIN SYRINGE 30G X 5/16 MISCELLANEOUS USE DIRECTED ACHS E11.65 , NOTES: OK TO SUBSTITUTE FORMULARY PREFERRED BRAND AND PATIENT PREFERRED SIZE. TAKING RELION INSULIN SYRINGE 30G X 5/16 MISCELLANEOUS DIRECTED ACHS E11.9 TAKING TRAZODONE HCL 100 MG TABLET 1 TABLET AT BEDTIME ORALLY ONCE A DAY TAKING ONETOUCH VERIO - STRIP DIRECTED IN VITRO QID ICD10 Z79 TAKING B-100 - TABLET 1 TABLET ORALLY ONCE A DAY, NOTES: OTC TAKING GABAPENTIN 600 MG TABLET 1 CAPSULE ORALLY Q8H TID TAKING PANTOPRAZOLE SODIUM 40 MG TABLET DELAYED RELEASE 1 TABLET ORALLY ONCE A DAY TAKING METFORMIN HCL ER 500 MG TABLET 24 HOUR SUSTAINED RELEASE 2 TABLETS ORALLY TWICE A DAY TAKING SUMATRIPTAN SUCCINATE 100 MG TABLET 1 TABLET NEEDED, MAY REPEAT DOSE ONE TIME IF NO RESPONSE IN 2 HOURS ORALLY ONCE A DAY NEEDED (MDD2 , MAX MONTHLY HEADACHES 4) TAKING FERROUS SULFATE 325 (65 FE) MG TABLET 1 TABLET ORALLY TWICE DAILY TAKING NOVOLIN 70/30 (70-30) 100 UNIT/ML SUSPENSION (INJECT) 20 UNITS SUBCUTANEOUS ONCE DAILY AT BEDTIME TAKING LISINOPRIL 2.5 MG TABLET 1 TABLET ORALLY ONCE A DAY TAKING OXYCODONE HCL 5 MG TABLET 1 TABLET NEEDED ORALLY Q12H PRN PAIN MDD2 TAKING BELBUCA 300 MCG FILM 1 FILM TO THE GUM BUCALLY BID MDD2 TAKING TIZANIDINE HCL 4 MG TABLET 1 TABLET NEEDED ORALLY THREE TIMES A DAY TAKING ATORVASTATIN CALCIUM 10 MG TABLET TAKE 1 TABLET BY MOUTH ONCE A DAY NOT-TAKING ZANAFLEX 4 MG TABLET 1 TABLET NEEDED ORALLY THREE TIMES A DAY PRN, NOTES: DUPLICATE NOT-TAKING NOVOLIN R 100 UNIT/ML SOLUTION SLIDING SCALE INJECTION THREE TO FOUR TIMES DAILY NOT-TAKING NOVOLIN N 100 UNIT/ML SUSPENSION 20 UNITS SUBCUTANEOUS BEFORE BEDTIME MEDICATION LIST REVIEWED AND RECONCILED WITH THE PATIENT PAST MEDICAL HISTORY CHRONIC NECK PAIN CHRONIC LBP, ON DISABILITY FOR IT, ON CHRONIC OPIATES BY PAIN CLINIC TYPE 2 DIABETES ON INSULIN AND METFORMIN, A1C 7.10 FEB 2018 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 SURGICAL HISTORY GASTRIC BYPASS 01/2013 FIBROUS TUMOR REMOVALS (47 OVER HER LIFETIME) MULTIPLE TONSILECTOMY 2011 ULCER REPAIR 07/19/17 DENTAL- TEETH EXTRACTED 12/2018-05/2019 GALLBLADDER REMOVAL 09/23/19 FAMILY HISTORY FATHER: ALIVE, DIAGNOSED WITH DIABETES, UNSPECIFIED HEART DISEASE MOTHER: ALIVE SIBLINGS: DIABETES PATERNAL GRAND MOTHER: DIABETES, OTHER MALIGNANT NEOPLASM OF UNSPECIFIED SITE MATERNAL GRAND FATHER: UNSPECIFIED HEART DISEASE, OTHER MALIGNANT NEOPLASM OF UNSPECIFIED SITE 2 BROTHER(S) , 1 SISTER(S) - HEALTHY. MOM--SKIN CA, ASTHMA\NTYPE 2 DIABETES\NPGM- PANCREATIC CANCER\NMGF- LUNG CANCER. SOCIAL HISTORY GENERAL: TOBACCO USE ARE YOU A:FORMER SMOKER HOW LONG HAS IT BEEN SINCE YOU LAST SMOKED?> 10 YEARS HIV / HEP-C SCREENING HIV TEST OFFERED TO PATIENT:YES DATE OFFERED:06/18/2018 TEST ACCEPTED:NO HEP-C TEST OFFERED TO PATIENT:YES DATE OFFERED:06/18/2018 REASON:PATIENT DECLINED TEST ACCEPTED:NO REASON:PATIENT DECLINED BROCHURE PROVIDED TO PATIENTYES OTHERS AT HOME: SPOUSE. EDUCATION LEVEL OF EDUCATION:NOT FINISHED COLLEGE DIET: NO CONCENTRATED SWEETS., CARBOHYDRATE CONTROLLED. LANGUAGE LANGUAGES SPOKEN:INDIAN DOMESTIC VIOLENCE DO YOU FEEL SAFE IN YOUR ENVIRONMENT?YES BMI CARE GOAL FOLLOW-UP ABOVE NORMAL BMI FOLLOW-UPDIETARY MANAGEMENT EDUCATION, GUIDANCE, AND COUNSELING RECREATIONAL DRUG USE DRUG USE?NO EXERCISE: DAILY. LEARNING BARRIERS / SPECIAL NEEDS CHANGE FROM LAST VISIT?NO BARRIERS TO LEARNING?NO HEARING IMPAIRED?NO VISION IMPAIRED?YES COGNITIVELY IMPAIRED?NO :CORRECTIVE LENSES READINESS TO LEARN?YES LEARNING PREFERENCES?NO LEARNING CAPABILITIES PRESENT?YES EMOTIONAL BARRIERS?NO SPECIAL DEVICES?YES :CANE CORROSION CONTROL TECHNICIAN NEEDED?NO LUNG CANCER SCREENING SMOKING STATUS:FORMER SMOKER PAIN CLINIC PFS, CLERGY, PUBLIC HEALTH REFERRALS HAS THE PATIENT BEEN EDUCATED REGARDING HIS/HER PLAN OF CARE?YES HAS THE PATIENT BEEN EDUCATED REGARDING PAIN, THE RISK FOR PAIN, THE IMPORTANCE OF EFFECTIVE PAIN MANAGEMENT, AND THE PAIN ASSESSMENT PROCESS?YES LATEX QUESTIONNAIRE LATEX ALLERGY : HAVE YOU EVER DEVELOPED ANY TYPE OF REACTION AFTER HANDLING LATEX PRODUCTS SUCH RUBBER GLOVES, CONDOMS, DIAPHRAGMS, BALLOONS, SOCKS, OR UNDERWEAR?NO LATEX ALLERGY : HAVE YOU EVER DEVELOPED ANY TYPE OF REACTION DURING OR AFTER DENTAL APPOINTMENT, VAGINAL/RECTAL EXAMINATION, SURGICAL PROCEDURE, OR ANY OTHER EXPOSURE?NO LATEX RISK : HAVE YOU EVER HAD ANY DIFFICULTY BREATHING OR HIVES AFTER EATING OR HANDLING ANY FRUITS, OR VEGETABLES; SUCH KIWI, BANANAS, STONE FRUITS, OR CHESTNUTSNO LATEX RISK : DO YOU HAVE A PREVIOUS PERSONAL HISTORY OF MORE THAN NINE SURGERIES, SPINA BIFIDA, OR REPEATED CATHERIZATIONS? NO LATEX RISK : ARE YOU FREQUENTLY EXPOSED TO LATEX PRODUCTS IN YOUR OCCUPATION?NO DATE ASKED : 01/07/2019 CAFFEINE CAFFEINE USE?YES COFFEE, SODA ADVANCE DIRECTIVE ADVANCE DIRECTIVE DISCUSSED WITH PATIENT:YES 09/27/19 PT STATES SHE DOES NOT HAVE HCP AND DECLINES INFO AND ASSISTANCE AT THIS TIME. JS MANDAEN [id number] CHEONDOISM MARITAL STATUS: . ALCOHOL SCREENING DID YOU HAVE A DRINK CONTAINING ALCOHOL IN THE PAST YEAR?YES HOW OFTEN DID YOU HAVE SIX OR MORE DRINKS ON ONE OCCASION IN THE PAST YEAR?NEVER (0 POINTS) HOW MANY DRINKS DID YOU HAVE ON A TYPICAL DAY WHEN YOU WERE DRINKING IN THE PAST YEAR?1 OR 2 (0 POINTS) HOW OFTEN DID YOU HAVE A DRINK CONTAINING ALCOHOL IN THE PAST YEAR?NEVER (0 POINTS) POINTS0 INTERPRETATIONNEGATIVE OCCUPATION: DISABLED. SEXUAL HX HAD SEX IN THE LAST 12 MONTHS (VAGINAL, ORAL, OR ANAL)?NO HAVE YOU EVER HAD AN STD?NO REVIEWED WITH PATIENT 09/18/18 1158 JSREVIEWED WITH PT 03/19/19 1150 LASREVIEWED WITH PATIENT 06/18/19 1205 NLJREVIEWED WITH PATIENT 09/27/19 1424 JS. HOSPITALIZATION/MAJOR DIAGNOSTIC PROCEDURE SURGICAL BLEEDING ULCER 07/2017 SURGERY RELATED 09/23/19 GALLBLADDER RELATED 07/2019-08/2019 REVIEW OF SYSTEMS REVIEWED BY: PROVIDER: RADHA CARLSON . CONSTITUTIONAL: ANY CHANGE IN YOUR MEDICAL CONDITION? YES, GALLBLADDER REMOVED 09/23/19 . CHILLS NO . FEVER NO . INFECTION: DO YOU HAVE NEW INFECTIONS? YES, INFECTION PRIOR TO AND RELATED TO GALLBLADDER SURGERY - ALMOST DONE WITH ANTIBIOTICS BUT CAN'T REMEMBER THE NAME OF THE ANTIBIOTIC SHE IS CURRENTLY TAKING . DO YOU HAVE HISTORY OF MRSA? NO . MUSCULOSKELETAL: ANY NEW PATTERNS OF PAIN OR NUMBNESS? YES, INCREASED PAIN/SPASMS TO ABDOMEN AND BACK AND RADIATING TO GROIN AREA . GASTROENTEROLOGY: ANY NEW CHANGE IN BOWEL CONTROL? NO . GENITOURINARY: ANY NEW CHANGE IN BLADDER CONTROL? NO . IS THERE A CHANCE YOU COULD BE ? NO . HEMATOLOGY/LYMPH: DO YOU TAKE ANY BLOOD THINNERS? (FOR EXAMPLE- COUMADIN, PLAVIX, AGGRENOX, PLATEL, PRADAXA, OR XARELTO) NO . WHEN WAS YOUR LAST DOSE? DATE: TIME: . NEUROLOGY: HAVE YOU FALLEN IN THE PAST 12 MONTHS? NO . ANY NEW EXTREMITY NUMBNESS OR WEAKNESS? NO . CARDIOLOGY: DO YOU HAVE A PACEMAKER OR DEFIBRILLATOR? NO . RESPIRATORY: HAVE YOU BEEN SICK IN THE PAST WEEK? YES, RELATED TO GALLBLADDER INFECTION . FEVER NO . FLU LIKE SYMPTOMS? NO . COUGH NO . INTEGUMENTARY: DO YOU HAVE ANY RASHES OR OPEN SORES? NO . ALLERGIC/IMMUNO: ARE YOU ALLERGIC TO IV DYE? NO . ANY NEW ALLERGIES? NO . PSYCHIATRIC: DO YOU HAVE THOUGHTS OF HURTING YOURSELF OR SOMEONE ELSE? NO . ARE YOU ABUSED, NEGLECTED, OR IN AN UNSAFE ENVIRONMENT? NO . ENDOCRINOLOGY: ARE YOU DIABETIC? YES . OTHER: DO YOU NEED ANY PRESCRIPTIONS? YES . IF YES, PLEASE LIST: ____OXYCODONE . ANY NEW PROBLEMS WITH YOUR MEDICATIONS? NO . WHEN DID YOU LAST EAT? ____ . WHEN DID YOU LAST DRINK? ____ . WHAT DID YOU LAST DRINK? ____ . NAME OF PERSON DRIVING YOU HOME? ____ . DO YOU HAVE ANY OTHER QUESTIONS OR CONCERNS YES, FLU VACCINE BEGINNING OF AUGUST . VITAL SIGNS WT 252.8 LBS, HT 69 IN, BMI 37.33 INDEX, BP 135/82 MM HG, HR 90 /MIN, RR 18 /MIN, TEMP 97.9 F, OXYGEN SAT % 96%, SAFE IN ENV? (Y/N) YES, REVIEWED BY: ELMO. EXAMINATION GENERAL EXAMINATION: GENERAL AWAKE,ALERT ,PLEASANT . PSYCH AFFECT NORMAL . LUNGS: LUNG OLSEN ARE CLEAR TO AUSCULTATION BILATERALLY. GOOD MOVEMENT OF AIR . HEART: S1, S2 IN A REGULAR RATE AND RHYTHM. NO SIGNIFICANT MURMURS, RUBS OR GALLOPS NOTED . ASSESSMENTS FIBROMYALGIA - M79.7 (PRIMARY) TREATMENT FIBROMYALGIA CONTINUE BELBUCA FILM, 300 MCG, 1 FILM TO THE GUM, BUCALLY, BID MDD2 CONTINUE TIZANIDINE HCL TABLET, 4 MG, 1 TABLET NEEDED, ORALLY, THREE TIMES A DAY REFILL OXYCODONE HCL TABLET, 5 MG, 1 TABLET NEEDED, ORALLY, Q12H PRN PAIN MDD2, 30 DAYS, 60, REFILLS 0 NOTES: ISTOP REGISTRY REVIEWED AND DEMONSTRATES COMPLLIANCE. BRINGS IN MEDICATIONS WHICH IS APPROPRIATE FOR WHAT WAS DISPENSED. RECENT URINE TOXICOLOGY REVIEWED. NO UNAUTHORIZED MEDICATIONS. NO ILLICIT SUBSTANCES AND PRESCRIBED MEDICATIONS WERE PRESENT. , RISKS AND BENEFITS OF NARCOTIC/OPIOD MEDICATIONS WERE REVIEWED WITH PATIENT - THIS INCLUDES BUT IS NOT LIMITED TO RISK OF DEPENDANCE/DEVELOPMENT OF ADDICTION, MOOD DISTURBANCE AND DEPRESSION, OSTEOPOROSIS, HORMONAL AND LABIDAL CHANGES, RESPIRATORY DEPRESSION AND . PATIENT IS ADVISED NOT TO DRIVE OR DRINK ALCOHOL WHILE ON THESE MEDICATIONS. PROCEDURE CODES FA211 ESTABILISHED PATIENT [facility] CHARGE DISPOSITION & COMMUNICATION FOLLOW UP 2 MONTHS (REASON: F/U) ELECTRONICALLY SIGNED BY ALDO RUBIN ON 10/07/2019 AT 03:01 PM EST DISCLAIMER : THIS IS A VISIT SUMMARY EXTRACTED FROM THE [facility] CHART. IT IS NOT A COPY OF THE [facility] PROGRESS NOTE. MAL
== END ==
LOC: M PAIN 14:00
PROVIDERS: ATTEND Nurse Practitioner Family
DX: M79.7 Fibromyalgia (principal)

== ENCOUNTER → 2019-09-27 | Outpatient (CLI) | payer MEDICARE ==
[2019-09-27 16:36] LABS: BASO % 0.3 % (0.0-1.0); EOS # 0.1 10^3/uL (0.0-0.5); EOS % 0.9 % (0.0-3.0); HEMATOCRIT 36.4 % (36.0-47.0); LYMPH # 1.9 10^3/uL (1.5-5.0); MEAN CORPUSCULAR HEMOGLOBIN 30.6 pg (27.0-33.0); MEAN CORPUSCULAR VOLUME 92.9 fl (80.0-96.0); MONO # 0.4 10^3/uL (0.0-0.8); MONO % 5.1 % (0.0-5.0); NEUTROPHILS # 6.1 10^3/uL (1.5-8.5); NEUTROPHILS % 71.4 % (36.0-66.0); PLATELET COUNT, AUTOMATED 257 10^3/uL (150-450); RED BLOOD COUNT 3.92 10^6/uL (4.00-5.40); WHITE BLOOD COUNT 8.6 10^3/uL (4.0-10.0)
[2019-09-27 16:58] LABS: ALBUMIN 3.1 GM/DL (3.2-5.2); ALT/SGPT 28 U/L (12-78); BILIRUBIN,TOTAL 0.4 MG/DL (0.2-1.0); BLOOD UREA NITROGEN 12 MG/DL (7-18); CALCIUM LEVEL 9.5 MG/DL (8.5-10.1); CARBON DIOXIDE LEVEL 27 MEQ/L (21-32); CHLORIDE LEVEL 106 MEQ/L (98-107); GLOMERULAR FILTRATION RATE > 60.0 (>51); GLUCOSE, FASTING 119 MG/DL (70-100); POTASSIUM SERUM 4.2 MEQ/L (3.5-5.1); SODIUM LEVEL 140 MEQ/L (136-145); TOTAL PROTEIN 7.6 GM/DL (6.4-8.2)
== END ==
LOC: M LAB 15:57
PROVIDERS: ATTEND Nurse Practitioner
DX: K80.12 Calculus of gallbladder with acute and chronic cholecystitis without obstruction (principal)

== ENCOUNTER → 2019-12-24 | Outpatient (CLI) | payer MEDICARE ==
[~2019-12-24] MED LIST changes: -TRAZ-163 PO; +TRAZ-257 PO
--- NOTE | 2020-01-12 02:36 | ECWPNPC ---
PATIENT NAME: ANGEL WILSON : 1960 GENDER: FEMALE VISIT DATE: 12/24/2019 DISCHARGE DATE: 12/24/19 1434 VISIT LOCKED DATE TIME: PHYSICIAN: RADHA CRUZ RESOURCE: RDAHA CRUZ REASON FOR APPOINTMENT 1. 2 MONTH HISTORY OF PRESENT ILLNESS HISTORY OF PRESENT ILLNESS: HERE FOR FOLLOW-UP OF CHRONIC GENERALIZED BACK PAIN. CHIEF AREA OF PAIN IS LOW BACK AND HIPS. RATING PAIN LEVEL VIII/X VAS. HAS HAD A BOUT OF LARGE CYSTIC SORE AND BUTTOCKS. SHE GETS THESE PERIODICALLY. FINDS CURRENT MEDICINES SOMEWHAT EFFECTIVE AT REDUCING PAIN AND KEEPING HER FUNCTIONAL. DENIES ADVERSE SIDE EFFECTS. PAIN THE PATIENT DESCRIBES THE PAINDURING THE LAST MONTH SEVERITY - PAIN SCORE OF8/10 LOCATIONSNECK, LOWER BACK, RIGHT SHOULDER, LEFT SHOULDER, RIGHT HIP, LEFT HIP, RIGHT LEG, LEFT LEG QUALITYBURNING, SHARP, STABBING FALL RISK SCREENING: SCREENING :NO FALLS REPORTED IN THE LAST YEAR CURRENT MEDICATIONS TAKING HAIR SKIN AND NAILS FORMULA - TABLET 1 CAP ORALLY THREE TIMES DAILY TAKING CPAP MASK DIRECTED _ DAILY ICD10 G47.33 TAKING VITAMIN C 1000 MG TABLET 1 TABLET ORALLY BID TAKING BD INSULIN SYRINGE 30G X 1/2 MISCELLANEOUS 1 INJECTION _ FOUR TIMES DAILY ICD10 E11.65 TAKING INSULIN SYRINGE 30G X 5/16 MISCELLANEOUS USE DIRECTED ACHS E11.65 , NOTES: OK TO SUBSTITUTE FORMULARY PREFERRED BRAND AND PATIENT PREFERRED SIZE. TAKING RELION INSULIN SYRINGE 30G X 5/16 MISCELLANEOUS DIRECTED ACHS E11.9 TAKING ONETOUCH VERIO - STRIP DIRECTED IN VITRO QID ICD10 Z79 TAKING B-100 - TABLET 1 TABLET ORALLY ONCE A DAY, NOTES: OTC TAKING PANTOPRAZOLE SODIUM 40 MG TABLET DELAYED RELEASE 1 TABLET ORALLY ONCE A DAY TAKING BELBUCA 300 MCG FILM 1 FILM TO THE GUM BUCALLY BID MDD2 TAKING METFORMIN HCL ER 500 MG TABLET 24 HOUR SUSTAINED RELEASE 2 TABLETS ORALLY TWICE A DAY TAKING NOVOLIN R 100 UNIT/ML SOLUTION SLIDING SCALE INJECTION THREE TO FOUR TIMES DAILY TAKING NOVOLIN N 100 UNIT/ML SUSPENSION 20 UNITS SUBCUTANEOUS BEFORE BEDTIME TAKING ATORVASTATIN CALCIUM 10 MG TABLET TAKE 1 TABLET BY MOUTH ONCE A DAY TAKING SUMATRIPTAN SUCCINATE 100 MG TABLET 1 TABLET NEEDED, MAY REPEAT DOSE ONE TIME IF NO RESPONSE IN 2 HOURS ORALLY ONCE A DAY NEEDED (MDD2 , MAX MONTHLY HEADACHES 4) TAKING TRAZODONE HCL 100 MG TABLET 1 TABLET AT BEDTIME ORALLY ONCE A DAY TAKING GABAPENTIN 600 MG TABLET 1 CAPSULE ORALLY Q8H TID TAKING FERROUS SULFATE 325 (65 FE) MG TABLET 1 TABLET ORALLY TWICE DAILY TAKING TIZANIDINE HCL 4 MG TABLET 1 TABLET NEEDED ORALLY THREE TIMES A DAY TAKING OXYCODONE HCL 5 MG TABLET 1 TABLET NEEDED ORALLY Q12H PRN PAIN MDD2 NOT-TAKING LISINOPRIL 2.5 MG TABLET 1 TABLET ORALLY ONCE A DAY NOT-TAKING ZANAFLEX 4 MG TABLET 1 TABLET NEEDED ORALLY THREE TIMES A DAY PRN, NOTES: DUPLICATE MEDICATION LIST REVIEWED AND RECONCILED WITH THE PATIENT PAST MEDICAL HISTORY CHRONIC NECK PAIN CHRONIC LBP, ON DISABILITY FOR IT, ON CHRONIC OPIATES BY PAIN CLINIC TYPE 2 DIABETES ON INSULIN AND METFORMIN, A1C 7.10 FEB 2018 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 SURGICAL HISTORY GASTRIC BYPASS 01/2013 FIBROUS TUMOR REMOVALS (47 OVER HER LIFETIME) MULTIPLE TONSILECTOMY 2011 ULCER REPAIR 07/19/17 DENTAL- TEETH EXTRACTED 12/2018-05/2019 GALLBLADDER REMOVAL 09/23/19 FAMILY HISTORY FATHER: ALIVE, DIAGNOSED WITH DIABETES, UNSPECIFIED HEART DISEASE MOTHER: ALIVE SIBLINGS: DIABETES PATERNAL GRAND MOTHER: DIABETES, OTHER MALIGNANT NEOPLASM OF UNSPECIFIED SITE MATERNAL GRAND FATHER: UNSPECIFIED HEART DISEASE, OTHER MALIGNANT NEOPLASM OF UNSPECIFIED SITE 2 BROTHER(S) , 1 SISTER(S) - HEALTHY. MOM--SKIN CA, ASTHMA\NTYPE 2 DIABETES\NPGM- PANCREATIC CANCER\NMGF- LUNG CANCER. SOCIAL HISTORY GENERAL: TOBACCO USE ARE YOU A:FORMER SMOKER HOW LONG HAS IT BEEN SINCE YOU LAST SMOKED?> 10 YEARS HIV / HEP-C SCREENING HIV TEST OFFERED TO PATIENT:YES DATE OFFERED:06/18/2018 TEST ACCEPTED:NO HEP-C TEST OFFERED TO PATIENT:YES DATE OFFERED:06/18/2018 REASON:PATIENT DECLINED TEST ACCEPTED:NO REASON:PATIENT DECLINED BROCHURE PROVIDED TO PATIENTYES OTHERS AT HOME: SPOUSE. EDUCATION LEVEL OF EDUCATION:NOT FINISHED COLLEGE DIET: NO CONCENTRATED SWEETS., CARBOHYDRATE CONTROLLED. LANGUAGE LANGUAGES SPOKEN:GIBRALTARIAN DOMESTIC VIOLENCE DO YOU FEEL SAFE IN YOUR ENVIRONMENT?YES BMI CARE GOAL FOLLOW-UP ABOVE NORMAL BMI FOLLOW-UPDIETARY MANAGEMENT EDUCATION, GUIDANCE, AND COUNSELING RECREATIONAL DRUG USE DRUG USE?NO EXERCISE: DAILY. LEARNING BARRIERS / SPECIAL NEEDS CHANGE FROM LAST VISIT?NO BARRIERS TO LEARNING?NO HEARING IMPAIRED?NO VISION IMPAIRED?YES COGNITIVELY IMPAIRED?NO :CORRECTIVE LENSES READINESS TO LEARN?YES LEARNING PREFERENCES?NO LEARNING CAPABILITIES PRESENT?YES EMOTIONAL BARRIERS?NO SPECIAL DEVICES?YES :CANE CUSTOMER DEVELOPMENT REPRESENTATIVE NEEDED?NO LUNG CANCER SCREENING SMOKING STATUS:FORMER SMOKER PAIN CLINIC PFS, CLERGY, PUBLIC HEALTH REFERRALS HAS THE PATIENT BEEN EDUCATED REGARDING HIS/HER PLAN OF CARE?YES HAS THE PATIENT BEEN EDUCATED REGARDING PAIN, THE RISK FOR PAIN, THE IMPORTANCE OF EFFECTIVE PAIN MANAGEMENT, AND THE PAIN ASSESSMENT PROCESS?YES LATEX QUESTIONNAIRE LATEX ALLERGY : HAVE YOU EVER DEVELOPED ANY TYPE OF REACTION AFTER HANDLING LATEX PRODUCTS SUCH RUBBER GLOVES, CONDOMS, DIAPHRAGMS, BALLOONS, SOCKS, OR UNDERWEAR?NO LATEX ALLERGY : HAVE YOU EVER DEVELOPED ANY TYPE OF REACTION DURING OR AFTER DENTAL APPOINTMENT, VAGINAL/RECTAL EXAMINATION, SURGICAL PROCEDURE, OR ANY OTHER EXPOSURE?NO DATE ASKED : 01/07/2019 LATEX RISK : HAVE YOU EVER HAD ANY DIFFICULTY BREATHING OR HIVES AFTER EATING OR HANDLING ANY FRUITS, OR VEGETABLES; SUCH KIWI, BANANAS, STONE FRUITS, OR CHESTNUTSNO LATEX RISK : DO YOU HAVE A PREVIOUS PERSONAL HISTORY OF MORE THAN NINE SURGERIES, SPINA BIFIDA, OR REPEATED CATHERIZATIONS? NO LATEX RISK : ARE YOU FREQUENTLY EXPOSED TO LATEX PRODUCTS IN YOUR OCCUPATION?NO CAFFEINE CAFFEINE USE?YES COFFEE, SODA ADVANCE DIRECTIVE ADVANCE DIRECTIVE DISCUSSED WITH PATIENT:YES PT STATES SHE DOES NOT HAVE HCP AND DECLINES INFO AND ASSISTANCE AT THIS TIME. TAOIST [id number] HINDU MARITAL STATUS: . ALCOHOL SCREENING DID YOU HAVE A DRINK CONTAINING ALCOHOL IN THE PAST YEAR?YES HOW OFTEN DID YOU HAVE SIX OR MORE DRINKS ON ONE OCCASION IN THE PAST YEAR?NEVER (0 POINTS) HOW MANY DRINKS DID YOU HAVE ON A TYPICAL DAY WHEN YOU WERE DRINKING IN THE PAST YEAR?1 OR 2 (0 POINTS) HOW OFTEN DID YOU HAVE A DRINK CONTAINING ALCOHOL IN THE PAST YEAR?NEVER (0 POINTS) POINTS0 INTERPRETATIONNEGATIVE OCCUPATION: DISABLED. SEXUAL HX HAD SEX IN THE LAST 12 MONTHS (VAGINAL, ORAL, OR ANAL)?NO HAVE YOU EVER HAD AN STD?NO HOSPITALIZATION/MAJOR DIAGNOSTIC PROCEDURE SURGICAL BLEEDING ULCER 07/2017 SURGERY RELATED 09/23/19 GALLBLADDER RELATED 07/2019-08/2019 REVIEW OF SYSTEMS REVIEWED BY: PROVIDER: RADHA CRUZ CURATOR . CONSTITUTIONAL: ANY CHANGE IN YOUR MEDICAL CONDITION? NO . CHILLS NO . FEVER NO . INFECTION: DO YOU HAVE NEW INFECTIONS? NO . DO YOU HAVE HISTORY OF MRSA? NO . MUSCULOSKELETAL: ANY NEW PATTERNS OF PAIN OR NUMBNESS? NO . GASTROENTEROLOGY: ANY NEW CHANGE IN BOWEL CONTROL? YES,PT HAD DIARRHEA FOR ALMOST A MONTH AND IS ALMOST GONE. . GENITOURINARY: ANY NEW CHANGE IN BLADDER CONTROL? NO . IS THERE A CHANCE YOU COULD BE ? NO . HEMATOLOGY/LYMPH: DO YOU TAKE ANY BLOOD THINNERS? (FOR EXAMPLE- COUMADIN, PLAVIX, AGGRENOX, PLATEL, PRADAXA, OR XARELTO) NO . WHEN WAS YOUR LAST DOSE? DATE: TIME: . NEUROLOGY: HAVE YOU FALLEN IN THE PAST 12 MONTHS? NO . ANY NEW EXTREMITY NUMBNESS OR WEAKNESS? NO . CARDIOLOGY: DO YOU HAVE A PACEMAKER OR DEFIBRILLATOR? NO . RESPIRATORY: HAVE YOU BEEN SICK IN THE PAST WEEK? YES, NAUSEA,DIARRHEA, NO FEVER,W/ A VOLCANIC SORE ON BUM . FEVER NO . FLU LIKE SYMPTOMS? NO . COUGH NO . INTEGUMENTARY: DO YOU HAVE ANY RASHES OR OPEN SORES? NO . ALLERGIC/IMMUNO: ARE YOU ALLERGIC TO IV DYE? NO . ANY NEW ALLERGIES? NO . PSYCHIATRIC: DO YOU HAVE THOUGHTS OF HURTING YOURSELF OR SOMEONE ELSE? NO . ARE YOU ABUSED, NEGLECTED, OR IN AN UNSAFE ENVIRONMENT? NO . ENDOCRINOLOGY: ARE YOU DIABETIC? YES . OTHER: DO YOU NEED ANY PRESCRIPTIONS? YES, REFILL OF OXYCODONE . IF YES, PLEASE LIST: ____ . ANY NEW PROBLEMS WITH YOUR MEDICATIONS? NO . WHEN DID YOU LAST EAT? ____ . WHEN DID YOU LAST DRINK? ____ . WHAT DID YOU LAST DRINK? ____ . NAME OF PERSON DRIVING YOU HOME? ____ . DO YOU HAVE ANY OTHER QUESTIONS OR CONCERNS YES, MY NECK PAIN SEEMS WORSE AND MIGRAINES HAVE INCREASED(WEEKLY BASIS) . VITAL SIGNS WT 246.0 LBS, HT 69 IN, BMI 36.32 INDEX, BP 145/71 MM HG, HR 85 /MIN, RR 18 /MIN, TEMP 97.0 F, OXYGEN SAT % 96%, SAFE IN ENV? (Y/N) YES, NA INITIALS AW 1353, REVIEWED BY: NANANA ASUMADU DERRICK BOAT CAPTAIN. EXAMINATION GENERAL EXAMINATION: GENERAL AWAKE,ALERT ,PLEASANT . PSYCH AFFECT NORMAL . LUNGS: LUNG OLSEN ARE CLEAR TO AUSCULTATION BILATERALLY. GOOD MOVEMENT OF AIR . HEART: S1, S2 IN A REGULAR RATE AND RHYTHM. NO SIGNIFICANT MURMURS, RUBS OR GALLOPS NOTED . ASSESSMENTS FIBROMYALGIA - M79.7 (PRIMARY) TREATMENT FIBROMYALGIA REFILL BELBUCA FILM, 300 MCG, 1 FILM TO THE GUM, BUCALLY, BID MDD2, 30 DAYS, 60, REFILLS 0 INCREASE OXYCODONE HCL TABLET, 5 MG, 1 TO 2 TAB, ORALLY, Q8H PRN MDD5, 30 DAYS, 150, REFILLS 0 NOTES: ISTOP REGISTRY REVIEWED AND DEMONSTRATES COMPLLIANCE. (REF # ) BRINGS IN MEDICATIONS WHICH IS APPROPRIATE FOR WHAT WAS DISPENSED. RECENT URINE TOXICOLOGY REVIEWED. NO UNAUTHORIZED MEDICATIONS. NO ILLICIT SUBSTANCES AND PRESCRIBED MEDICATIONS WERE PRESENT. , RISKS OF NARCOTIC/OPIOD MEDICATIONS INCLUDES BUT IS NOT LIMITED TO RISK OF DEPENDANCE/DEVELOPMENT OF ADDICTION, MOOD DISTURBANCE AND DEPRESSION, OSTEOPOROSIS, HORMONAL AND LABIDAL CHANGES, RESPIRATORY DEPRESSION AND . PATIENT IS ADVISED NOT TO DRIVE OR DRINK ALCOHOL WHILE ON THESE MEDICATIONS. PROCEDURE CODES [id number] ESTABILISHED PATIENT [facility]AC[facility] CHARGE DISPOSITION & COMMUNICATION FOLLOW UP 3 MONTHS (REASON: MED MGMNT) ELECTRONICALLY SIGNED BY ALDO RUBIN ON 01/11/2020 AT 03:05 PM EDT DISCLAIMER : THIS IS A VISIT SUMMARY EXTRACTED FROM THE ECLINICALWORKS CHART. IT IS NOT A COPY OF THE ECLINICALWORKS PROGRESS NOTE. MTDD
== END ==
LOC: M PAIN 13:45
PROVIDERS: ATTEND Nurse Practitioner Family
DX: M79.7 Fibromyalgia (principal); M54.2 Cervicalgia; M54.5 Low back pain; E11.42 Type 2 diabetes mellitus with diabetic polyneuropathy; Z98.84 Bariatric surgery status; G47.33 Obstructive sleep apnea (adult) (pediatric); D64.9 Anemia, unspecified; Z87.891 Personal history of nicotine dependence; Z79.4 Long term (current) use of insulin; Z79.891 Long term (current) use of opiate analgesic; Z79.899 Other long term (current) drug therapy

== ENCOUNTER → 2020-01-25 | Outpatient (REF) | payer MEDICARE ==
[~2020-01-25] MED LIST changes: +VITA-243 PO; -VITA500T PO
[2020-01-25 17:09] LABS: CHOLESTEROL RISK RATIO 1.629 (<5)
[2020-01-25 17:15] LABS: HEMOGLOBIN A1c 6.4 %
[2020-01-25 17:34] LABS: MALB URINE SIEMENS 15.1 MG/L; MAU/CREAT RATIO 5.9 MCG/MG (0.0-30.0)
== END ==
LOC: M SFHCLERA 11:58
PROVIDERS: ATTEND Family Medicine
DX: E11.9 Type 2 diabetes mellitus without complications (principal)
CPT/HCPCS: 80061; 82043; 83036; G0463

== ENCOUNTER → 2020-03-24 | Outpatient (CLI) | payer MEDICARE ==
[~2020-03-24] MED LIST changes: -LISI-1046 PO; +LISI2.5T2 PO; -METF-791 PO; +METF-838 PO
--- NOTE | 2020-03-28 05:07 | ECWPNPC ---
PATIENT NAME: ANGEL WILSON : 1960 GENDER: FEMALE VISIT DATE: 03/24/2020 DISCHARGE DATE: 03/24/20 1226 VISIT LOCKED DATE TIME: PHYSICIAN: RADHA CRUZ RESOURCE: RADHA CRUZ REASON FOR APPOINTMENT 1. MED MGMT/UTOX? PAT DONE HISTORY OF PRESENT ILLNESS GENERAL: HERE FOR FOLLOW-UP OF CHRONIC GENERALIZED BACK PAIN AND ARTHROPATHY. REPORTING SIGNIFICANT INCREASE IN BILATERAL HAND JOINT PAIN. HAS BEEN UNDER A CONSIDERABLE AMOUNT OF STRESS LATELY. FINDS CURRENT CHRONIC PAIN MEDICATION ONLY MARGINALLY EFFECTIVE. DISCUSSED MEDICATION AND TREATMENT PLAN. -. FALL RISK SCREENING: SCREENING :NO FALLS REPORTED IN THE LAST YEAR PAIN SCREENING: PATIENT HAS A COMPLAINT OF ACUTE OR CHRONIC PAIN :YES LOCATION OF PAIN:NECK, LOW BACK INTENSITY OF PAIN (SCALE OF 1 TO 10):7 WHAT DOES YOUR PAIN FEEL LIKE:CONTINOUS, SHARP, STABBING, THROBBING, SHOOTING DURATION:CONSTANT PAIN IS INCREASED BY:ACTIVITIES PAIN IS DECREASED BY:SITTING, OTHERS ELEVATE LEGS NURSING NOTE: -. PAIN CENTER INTAKE QUESTIONS: DO YOU HAVE A HISTORY OF MRSA? :NO DO YOU TAKE A BLOOD THINNERS? :NO DO YOU HAVE ANY BLEEDING DISORDERS? :NO ANY NEW NUMBNESS OR WEAKNESS IN YOUR LEGS OR ARMS? :YES PT STATES THAT SHE IS HAVING WEAKNESS INCREASED ON LEFT SIDE ANY PACEMAKER,DEFIBRILLATOR, OR DORSAL COLUMN STIMULATOR? :NO DO YOU HAVE ANY RASHES OR OPEN SORES? :YES VOLCANIC SORE ON UPPER LEFT BUTTOCK AREA, PT BEING SEEN BY PCP THIS MONTH FOR EVALUATION, PT STATES THAT SHE IS NOT CURRENTLY TAKING ANTIBIOTICS AT THIS TIME ARE YOU ALLERGIC TO IV DYE? :NO ARE YOU DIABETIC? :YES MANAGED WITH ORAL MEDS AND INSULIN ANY NEW PROBLEMS WITH YOUR MEDICATIONS? :NO HAVE YOU RECEIVED A VACCINE IN THE PAST 30 DAYS? :NO DO YOU PLAN TO RECEIVE A VACCINE IN THE NEXT 21 DAYS? :NO DO YOU NEED ANY PRESCRIPTION? :YES OXYCODONE 5MG DO YOU TAKE ANY IMMUNOSUPPRESSIVE MEDICATIONS? :NO IS THERE A CHANCE YOU COULD BE ? :NO ARE YOU BREAST FEEDING? :NO CURRENT MEDICATIONS TAKING GABAPENTIN 800 MG TABLET 1 CAPSULE ORALLY THREE TIMES DAILY TAKING NOVOLIN R 100 UNIT/ML SOLUTION SLIDING SCALE INJECTION THREE TO FOUR TIMES DAILY TAKING NOVOLIN N 100 UNIT/ML SUSPENSION 20 UNITS SUBCUTANEOUS BEFORE BEDTIME TAKING HAIR SKIN AND NAILS FORMULA - TABLET 1 CAP ORALLY THREE TIMES DAILY TAKING CPAP MASK DIRECTED _ DAILY ICD10 G47.33 TAKING VITAMIN C 1000 MG TABLET 1 TABLET ORALLY BID TAKING BD INSULIN SYRINGE 30G X 1/2 MISCELLANEOUS 1 INJECTION _ FOUR TIMES DAILY ICD10 E11.65 TAKING INSULIN SYRINGE 30G X 5/16 MISCELLANEOUS USE DIRECTED ACHS E11.65 , NOTES: OK TO SUBSTITUTE FORMULARY PREFERRED BRAND AND PATIENT PREFERRED SIZE. TAKING RELION INSULIN SYRINGE 30G X 5/16 MISCELLANEOUS DIRECTED ACHS E11.9 TAKING ONETOUCH VERIO - STRIP DIRECTED IN VITRO QID ICD10 Z79 TAKING B-100 - TABLET 1 TABLET ORALLY ONCE A DAY, NOTES: OTC TAKING SUMATRIPTAN SUCCINATE 100 MG TABLET 1 TABLET NEEDED, MAY REPEAT DOSE ONE TIME IF NO RESPONSE IN 2 HOURS ORALLY ONCE A DAY NEEDED (MDD2 , MAX MONTHLY HEADACHES 4) TAKING FERROUS SULFATE 325 (65 FE) MG TABLET 1 TABLET ORALLY TWICE DAILY TAKING AMITRIPTYLINE HCL 25 MG TABLET 1 TABLET AT BEDTIME ORALLY ONCE A DAY TAKING TIZANIDINE HCL 4 MG TABLET 1 TABLET NEEDED ORALLY THREE TIMES A DAY TAKING RELION INSULIN SYRINGE 31G X 15/64" 0.5 ML MISCELLANEOUS USE 4 TIMES DAILY TAKING ATORVASTATIN CALCIUM 10 MG TABLET TAKE 1 TABLET BY MOUTH ONCE A DAY TAKING PANTOPRAZOLE SODIUM 40 MG TABLET DELAYED RELEASE 1 TABLET ORALLY ONCE A DAY TAKING METFORMIN HCL ER 500 MG TABLET 24 HOUR SUSTAINED RELEASE 2 TABLETS ORALLY TWICE A DAY TAKING BELBUCA 300 MCG FILM 1 FILM TO THE GUM BUCALLY BID MDD2 TAKING OXYCODONE HCL 5 MG TABLET 1 TO 2 TAB ORALLY Q8H PRN MDD5 MEDICATION LIST REVIEWED AND RECONCILED WITH THE PATIENT PAST MEDICAL HISTORY CHRONIC NECK PAIN CHRONIC LBP, ON DISABILITY FOR IT, ON CHRONIC OPIATES BY PAIN CLINIC TYPE 2 DIABETES ON INSULIN AND METFORMIN, A1C 7.10 FEB 2018 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 SURGICAL HISTORY GASTRIC BYPASS 01/2013 FIBROUS TUMOR REMOVALS (47 OVER HER LIFETIME) MULTIPLE TONSILECTOMY 2011 ULCER REPAIR 07/19/17 DENTAL- TEETH EXTRACTED 12/2018-05/2019 GALLBLADDER REMOVAL 09/23/19 FAMILY HISTORY FATHER: ALIVE, DIAGNOSED WITH DIABETES, UNSPECIFIED HEART DISEASE MOTHER: ALIVE SIBLINGS: DIABETES PATERNAL GRAND MOTHER: DIABETES, OTHER MALIGNANT NEOPLASM OF UNSPECIFIED SITE MATERNAL GRAND FATHER: UNSPECIFIED HEART DISEASE, OTHER MALIGNANT NEOPLASM OF UNSPECIFIED SITE 2 BROTHER(S) , 1 SISTER(S) - HEALTHY. MOM--SKIN CA, ASTHMA\\NTYPE 2 DIABETES\\NPGM- PANCREATIC CANCER\\NMGF- LUNG CANCER. SOCIAL HISTORY GENERAL: TOBACCO USE ARE YOU A:FORMER SMOKER HOW LONG HAS IT BEEN SINCE YOU LAST SMOKED?> 10 YEARS LATEX QUESTIONNAIRE LATEX ALLERGY : HAVE YOU EVER DEVELOPED ANY TYPE OF REACTION AFTER HANDLING LATEX PRODUCTS SUCH RUBBER GLOVES, CONDOMS, DIAPHRAGMS, BALLOONS, SOCKS, OR UNDERWEAR?NO LATEX ALLERGY : HAVE YOU EVER DEVELOPED ANY TYPE OF REACTION DURING OR AFTER DENTAL APPOINTMENT, VAGINAL/RECTAL EXAMINATION, SURGICAL PROCEDURE, OR ANY OTHER EXPOSURE?NO LATEX RISK : HAVE YOU EVER HAD ANY DIFFICULTY BREATHING OR HIVES AFTER EATING OR HANDLING ANY FRUITS, OR VEGETABLES; SUCH KIWI, BANANAS, STONE FRUITS, OR CHESTNUTSNO LATEX RISK : DO YOU HAVE A PREVIOUS PERSONAL HISTORY OF MORE THAN NINE SURGERIES, SPINA BIFIDA, OR REPEATED CATHERIZATIONS? NO LATEX RISK : ARE YOU FREQUENTLY EXPOSED TO LATEX PRODUCTS IN YOUR OCCUPATION?NO DATE ASKED : 03/23/2020 LUNG CANCER SCREENING SMOKING STATUS:FORMER SMOKER BMI CARE GOAL FOLLOW-UP ABOVE NORMAL BMI FOLLOW-UPDIETARY MANAGEMENT EDUCATION, GUIDANCE, AND COUNSELING ALCOHOL SCREENING DID YOU HAVE A DRINK CONTAINING ALCOHOL IN THE PAST YEAR?YES HOW OFTEN DID YOU HAVE SIX OR MORE DRINKS ON ONE OCCASION IN THE PAST YEAR?NEVER (0 POINTS) HOW MANY DRINKS DID YOU HAVE ON A TYPICAL DAY WHEN YOU WERE DRINKING IN THE PAST YEAR?1 OR 2 (0 POINTS) HOW OFTEN DID YOU HAVE A DRINK CONTAINING ALCOHOL IN THE PAST YEAR?NEVER (0 POINTS) POINTS0 INTERPRETATIONNEGATIVE RECREATIONAL DRUG USE DRUG USE?NO CAFFEINE CAFFEINE USE?YES COFFEE, SODA SEXUAL HX HAD SEX IN THE LAST 12 MONTHS (VAGINAL, ORAL, OR ANAL)?NO HAVE YOU EVER HAD AN STD?NO HIV / HEP-C SCREENING HIV TEST OFFERED TO PATIENT:YES DATE OFFERED:06/18/2018 TEST ACCEPTED:NO HEP-C TEST OFFERED TO PATIENT:YES DATE OFFERED:06/18/2018 REASON:PATIENT DECLINED TEST ACCEPTED:NO REASON:PATIENT DECLINED BROCHURE PROVIDED TO PATIENTYES CONFUCIANISM [id number] JEWISH LANGUAGE LANGUAGES SPOKEN:[place]ATVIAN EDUCATION LEVEL OF EDUCATION:NOT FINISHED COLLEGE LEARNING BARRIERS / SPECIAL NEEDS CHANGE FROM LAST VISIT?NO BARRIERS TO LEARNING?NO HEARING IMPAIRED?NO VISION IMPAIRED?YES COGNITIVELY IMPAIRED?NO :CORRECTIVE LENSES READINESS TO LEARN?YES LEARNING PREFERENCES?NO LEARNING CAPABILITIES PRESENT?YES EMOTIONAL BARRIERS?NO 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 DIET: NO CONCENTRATED SWEETS., CARBOHYDRATE CONTROLLED. EXERCISE: DAILY. MARITAL STATUS: . OTHERS AT HOME: SPOUSE. PAIN CLINIC PFS, CLERGY, PUBLIC HEALTH REFERRALS HAS THE PATIENT BEEN EDUCATED REGARDING HIS/HER PLAN OF CARE?YES HAS THE PATIENT BEEN EDUCATED REGARDING PAIN, THE RISK FOR PAIN, THE IMPORTANCE OF EFFECTIVE PAIN MANAGEMENT, AND THE PAIN ASSESSMENT PROCESS?YES ADVANCE DIRECTIVE ADVANCE DIRECTIVE DISCUSSED WITH PATIENT:YES PT STATES SHE DOES NOT HAVE HCP AND DECLINES INFO AND ASSISTANCE AT THIS TIME. HOSPITALIZATION/MAJOR DIAGNOSTIC PROCEDURE SURGICAL BLEEDING ULCER 07/2017 SURGERY RELATED 09/23/19 GALLBLADDER RELATED 07/2019-08/2019 REVIEW OF SYSTEMS CONSTITUTIONAL: ANY RECENT FEVER OR ILLNESS NO . CHILLS NO . GASTROENTEROLOGY: BOWEL INCONTINENCE NO . ANY NEW CHANGE IN BOWEL CONTROL? NO . ABDOMINAL PAIN NO . CONSTIPATION NO . GENITOURINARY: ANY NEW CHANGE IN BLADDER CONTROL? NO . IS THERE A CHANCE YOU COULD BE ? NO . URINARY INCONTINENCE NO . CARDIOLOGY: CHEST PRESSURE NO . CHEST PAIN NO . RESPIRATORY: COUGH NO . SHORTNESS OF BREATH NO . VITAL SIGNS WT 262.2 LBS, HT 69 IN, BMI 38.72 INDEX, BP 138/76 MM HG, HR 78 /MIN, RR 18 /MIN, TEMP 97.0 F, OXYGEN SAT % 100%, SAFE IN ENV? (Y/N) YES, NA INITIALS AW 1136, REVIEWED BY: COY. EXAMINATION GENERAL EXAMINATION: GENERAL AWAKE,ALERT ,PLEASANT . PSYCH AFFECT NORMAL . LUNGS: LUNG OLSEN ARE CLEAR TO AUSCULTATION BILATERALLY. GOOD MOVEMENT OF AIR . HEART: S1, S2 IN A REGULAR RATE AND RHYTHM. NO SIGNIFICANT MURMURS, RUBS OR GALLOPS NOTED . ASSESSMENTS FIBROMYALGIA - M79.7 (PRIMARY) LUMBAR BACK PAIN WITH RADICULOPATHY AFFECTING LEFT LOWER EXTREMITY - M54.17 TREATMENT FIBROMYALGIA INCREASE BELBUCA FILM, 600 MCG, 1 FILM TO THE GUM, BUCALLY, BID MDD2, 30 DAYS, 60, REFILLS 0 CONTINUE OXYCODONE HCL TABLET, 5 MG, 1 TO 2 TAB, ORALLY, Q8H PRN MDD5, 30 DAYS, 150, REFILLS 0 NOTES: ISTOP REGISTRY REVIEWED AND DEMONSTRATES COMPLLIANCE. BRINGS IN MEDICATIONS WHICH IS APPROPRIATE FOR WHAT WAS DISPENSED. RECENT URINE TOXICOLOGY REVIEWED. NO UNAUTHORIZED MEDICATIONS. NO ILLICIT SUBSTANCES AND PRESCRIBED MEDICATIONS WERE PRESENT. URINE TOXICOLOGY TODAY , RISKS OF NARCOTIC/OPIOD MEDICATIONS INCLUDES BUT IS NOT LIMITED TO RISK OF DEPENDANCE/DEVELOPMENT OF ADDICTION, MOOD DISTURBANCE AND DEPRESSION, OSTEOPOROSIS, HORMONAL AND LABIDAL CHANGES, RESPIRATORY DEPRESSION AND . PATIENT IS ADVISED NOT TO DRIVE OR DRINK ALCOHOL WHILE ON THESE MEDICATIONS. PROCEDURE CODES FA211 ESTABILISHED PATIENT [facility] CHARGE DISPOSITION & COMMUNICATION FOLLOW UP 6 WEEKS /MED MGMNT IN CLINIC (REASON: BACK PAIN/ARTHROPATHY) ELECTRONICALLY SIGNED BY ALDO RUBIN ON 03/27/2020 AT 11:16 AM EDT DISCLAIMER : THIS IS A VISIT SUMMARY EXTRACTED FROM THE ECLINICALWORKS CHART. IT IS NOT A COPY OF THE ECLINICALWORKS PROGRESS NOTE. MAL
== END ==
LOC: M PAIN 11:30
PROVIDERS: ATTEND Nurse Practitioner Family
DX: M79.7 Fibromyalgia (principal); M54.17 Radiculopathy, lumbosacral region

== ENCOUNTER → 2020-05-12 | Outpatient (POV) | payer MEDICARE ==
[~2020-05-12] MED LIST changes: +PANT40TA29 PO; -PANT40TA3 PO
== END ==
LOC: M PAIN 10:30
PROVIDERS: ATTEND Nurse Practitioner Family
DX: M54.5 Low back pain (principal)

== ENCOUNTER → 2020-08-11 | Outpatient (CLI) | payer MEDICARE ==
--- NOTE | 2020-08-22 10:00 | ECWPNPC ---
PATIENT NAME: ANGEL WILSON : 1960 GENDER: FEMALE VISIT DATE: 08/11/2020 DISCHARGE DATE: 08/11/20 1220 VISIT LOCKED DATE TIME: PHYSICIAN: RADHA CRUZ PHYSICIAN PAGER NO: ACTIVE RESOURCE: RADHA CRUZ REASON FOR APPOINTMENT 1. BACK PAIN-3 MONTH FU HISTORY OF PRESENT ILLNESS PAIN CENTER INTAKE QUESTIONS: DO YOU HAVE A HISTORY OF MRSA? :NO DO YOU TAKE A BLOOD THINNERS? :NO DO YOU HAVE ANY BLEEDING DISORDERS? :NO ANY NEW NUMBNESS OR WEAKNESS IN YOUR LEGS OR ARMS? :NO ANY PACEMAKER,DEFIBRILLATOR, OR DORSAL COLUMN STIMULATOR? :NO DO YOU HAVE ANY RASHES OR OPEN SORES? :NO ARE YOU ALLERGIC TO IV DYE? :NO ARE YOU DIABETIC? :NO ANY NEW PROBLEMS WITH YOUR MEDICATIONS? :NO HAVE YOU RECEIVED A VACCINE IN THE PAST 30 DAYS? :NO DO YOU PLAN TO RECEIVE A VACCINE IN THE NEXT 21 DAYS? :NO DO YOU NEED ANY PRESCRIPTION? :NO DO YOU TAKE ANY IMMUNOSUPPRESSIVE MEDICATIONS? :NO IS THERE A CHANCE YOU COULD BE ? :NO ARE YOU BREAST FEEDING? :NO GENERAL: HERE FOR FOLLOW-UP OF CHRONIC GENERALIZED BACK PAIN AND ARTHROPATHY. REPORTING SIGNIFICANT INCREASE IN BILATERAL HAND JOINT PAIN. HAS BEEN UNDER A CONSIDERABLE AMOUNT OF STRESS LATELY. FINDS CURRENT CHRONIC PAIN MEDICATION ONLY MARGINALLY EFFECTIVE. DISCUSSED MEDICATION AND TREATMENT PLAN. - - -. FALL RISK SCREENING: SCREENING :NO FALLS REPORTED IN THE LAST YEAR PAIN SCREENING: PATIENT HAS A COMPLAINT OF ACUTE OR CHRONIC PAIN :YES INTENSITY OF PAIN (SCALE OF 1 TO 10):8 WHAT DOES YOUR PAIN FEEL LIKE:TENDER, SHARP, CONTINOUS DURATION:CONTINOUS NURSING NOTE: - -. CURRENT MEDICATIONS TAKING GABAPENTIN 800 MG TABLET 1 CAPSULE ORALLY THREE TIMES DAILY TAKING NOVOLIN R 100 UNIT/ML SOLUTION SLIDING SCALE INJECTION THREE TO FOUR TIMES DAILY TAKING NOVOLIN N 100 UNIT/ML SUSPENSION 20 UNITS SUBCUTANEOUS BEFORE BEDTIME TAKING HAIR SKIN AND NAILS FORMULA - TABLET 1 CAP ORALLY THREE TIMES DAILY TAKING CPAP MASK DIRECTED _ DAILY ICD10 G47.33 TAKING VITAMIN C 1000 MG TABLET 1 TABLET ORALLY BID TAKING BD INSULIN SYRINGE 30G X 1/2 MISCELLANEOUS 1 INJECTION _ FOUR TIMES DAILY ICD10 E11.65 TAKING INSULIN SYRINGE 30G X 5/16 MISCELLANEOUS USE DIRECTED ACHS E11.65 , NOTES: OK TO SUBSTITUTE FORMULARY PREFERRED BRAND AND PATIENT PREFERRED SIZE. TAKING RELION INSULIN SYRINGE 30G X 5/16 MISCELLANEOUS DIRECTED ACHS E11.9 TAKING ONETOUCH VERIO - STRIP DIRECTED IN VITRO QID ICD10 Z79 TAKING B-100 - TABLET 1 TABLET ORALLY ONCE A DAY, NOTES: OTC TAKING SUMATRIPTAN SUCCINATE 100 MG TABLET 1 TABLET NEEDED, MAY REPEAT DOSE ONE TIME IF NO RESPONSE IN 2 HOURS ORALLY ONCE A DAY NEEDED (MDD2 , MAX MONTHLY HEADACHES 4) TAKING FERROUS SULFATE 325 (65 FE) MG TABLET 1 TABLET ORALLY TWICE DAILY TAKING AMITRIPTYLINE HCL 25 MG TABLET 1 TABLET AT BEDTIME ORALLY ONCE A DAY TAKING RELION INSULIN SYRINGE 31G X 15/64" 0.5 ML MISCELLANEOUS USE 4 TIMES DAILY TAKING BELBUCA 600 MCG FILM 1 FILM TO THE GUM BUCALLY BID MDD2 TAKING TIZANIDINE HCL 4 MG TABLET 1 TABLET NEEDED ORALLY THREE TIMES A DAY TAKING ATORVASTATIN CALCIUM 10 MG TABLET TAKE 1 TABLET BY MOUTH ONCE A DAY TAKING PANTOPRAZOLE SODIUM 40 MG TABLET DELAYED RELEASE 1 TABLET ORALLY ONCE A DAY TAKING OXYCODONE HCL 5 MG TABLET 1 TO 2 TAB ORALLY Q8H PRN MDD5 TAKING METFORMIN HCL ER 500 MG TABLET 24 HOUR SUSTAINED RELEASE 2 TABLETS ORALLY TWICE A DAY TAKING CEPHALEXIN 500MG CAPSULE 1 CAPSULE ORALLY THREE TIMES DAILY NEEDED TAKING MULTI FOR HER - TABLET DIRECTED ORALLY MEDICATION LIST REVIEWED AND RECONCILED WITH THE PATIENT PAST MEDICAL HISTORY CHRONIC NECK PAIN CHRONIC LBP, ON DISABILITY FOR IT, ON CHRONIC OPIATES BY PAIN CLINIC TYPE 2 DIABETES ON INSULIN AND METFORMIN, A1C 7.10 FEB 2018 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 SURGICAL HISTORY GASTRIC BYPASS 01/2013 FIBROUS TUMOR REMOVALS (47 OVER HER LIFETIME) MULTIPLE TONSILECTOMY 2011 ULCER REPAIR 07/19/17 DENTAL- TEETH EXTRACTED 12/2018-05/2019 GALLBLADDER REMOVAL 09/23/19 FAMILY HISTORY FATHER: ALIVE, DIAGNOSED WITH DIABETES, UNSPECIFIED HEART DISEASE MOTHER: ALIVE SIBLINGS: DIABETES PATERNAL GRAND MOTHER: DIABETES, OTHER MALIGNANT NEOPLASM OF UNSPECIFIED SITE MATERNAL GRAND FATHER: UNSPECIFIED HEART DISEASE, OTHER MALIGNANT NEOPLASM OF UNSPECIFIED SITE 2 BROTHER(S) , 1 SISTER(S) - HEALTHY. MOM--SKIN CA, ASTHMA\\NTYPE 2 DIABETES\\NPGM- PANCREATIC CANCER\\NMGF- LUNG CANCER. SOCIAL HISTORY GENERAL: TOBACCO USE ARE YOU A:FORMER SMOKER HOW LONG HAS IT BEEN SINCE YOU LAST SMOKED?> 10 YEARS LATEX QUESTIONNAIRE LATEX ALLERGY : HAVE YOU EVER DEVELOPED ANY TYPE OF REACTION AFTER HANDLING LATEX PRODUCTS SUCH RUBBER GLOVES, CONDOMS, DIAPHRAGMS, BALLOONS, SOCKS, OR UNDERWEAR?NO LATEX ALLERGY : HAVE YOU EVER DEVELOPED ANY TYPE OF REACTION DURING OR AFTER DENTAL APPOINTMENT, VAGINAL/RECTAL EXAMINATION, SURGICAL PROCEDURE, OR ANY OTHER EXPOSURE?NO DATE ASKED : 03/23/2020 LATEX RISK : HAVE YOU EVER HAD ANY DIFFICULTY BREATHING OR HIVES AFTER EATING OR HANDLING ANY FRUITS, OR VEGETABLES; SUCH KIWI, BANANAS, STONE FRUITS, OR CHESTNUTSNO LATEX RISK : DO YOU HAVE A PREVIOUS PERSONAL HISTORY OF MORE THAN NINE SURGERIES, SPINA BIFIDA, OR REPEATED CATHERIZATIONS? NO LATEX RISK : ARE YOU FREQUENTLY EXPOSED TO LATEX PRODUCTS IN YOUR OCCUPATION?NO LUNG CANCER SCREENING SMOKING STATUS:FORMER SMOKER BMI CARE GOAL FOLLOW-UP ABOVE NORMAL BMI FOLLOW-UPDIETARY MANAGEMENT EDUCATION, GUIDANCE, AND COUNSELING ALCOHOL SCREENING DID YOU HAVE A DRINK CONTAINING ALCOHOL IN THE PAST YEAR?YES HOW OFTEN DID YOU HAVE SIX OR MORE DRINKS ON ONE OCCASION IN THE PAST YEAR?NEVER (0 POINTS) HOW MANY DRINKS DID YOU HAVE ON A TYPICAL DAY WHEN YOU WERE DRINKING IN THE PAST YEAR?1 OR 2 (0 POINTS) HOW OFTEN DID YOU HAVE A DRINK CONTAINING ALCOHOL IN THE PAST YEAR?NEVER (0 POINTS) POINTS0 INTERPRETATIONNEGATIVE RECREATIONAL DRUG USE DRUG USE?NO CAFFEINE CAFFEINE USE?YES COFFEE, SODA SEXUAL HX HAD SEX IN THE LAST 12 MONTHS (VAGINAL, ORAL, OR ANAL)?NO HAVE YOU EVER HAD AN STD?NO HIV / HEP-C SCREENING HIV TEST OFFERED TO PATIENT:YES DATE OFFERED:06/18/2018 TEST ACCEPTED:NO HEP-C TEST OFFERED TO PATIENT:YES DATE OFFERED:06/18/2018 REASON:PATIENT DECLINED TEST ACCEPTED:NO REASON:PATIENT DECLINED BROCHURE PROVIDED TO PATIENTYES HOLINESS [id number] LUTHERAN LANGUAGE LANGUAGES SPOKEN:LUXEMBOURGISH EDUCATION LEVEL OF EDUCATION:NOT FINISHED COLLEGE LEARNING BARRIERS / SPECIAL NEEDS CHANGE FROM LAST VISIT?NO BARRIERS TO LEARNING?NO HEARING IMPAIRED?NO VISION IMPAIRED?YES COGNITIVELY IMPAIRED?NO :CORRECTIVE LENSES READINESS TO LEARN?YES LEARNING PREFERENCES?NO LEARNING CAPABILITIES PRESENT?YES EMOTIONAL BARRIERS?NO SPECIAL DEVICES?YES :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 DIET: NO CONCENTRATED SWEETS., CARBOHYDRATE CONTROLLED. EXERCISE: DAILY. MARITAL STATUS: . OTHERS AT HOME: SPOUSE. PAIN CLINIC PFS, CLERGY, PUBLIC HEALTH REFERRALS HAS THE PATIENT BEEN EDUCATED REGARDING HIS/HER PLAN OF CARE?YES HAS THE PATIENT BEEN EDUCATED REGARDING PAIN, THE RISK FOR PAIN, THE IMPORTANCE OF EFFECTIVE PAIN MANAGEMENT, AND THE PAIN ASSESSMENT PROCESS?YES ADVANCE DIRECTIVE ADVANCE DIRECTIVE DISCUSSED WITH PATIENT:YES PT STATES SHE DOES NOT HAVE HCP AND DECLINES INFO AND ASSISTANCE AT THIS TIME. HOSPITALIZATION/MAJOR DIAGNOSTIC PROCEDURE SURGICAL BLEEDING ULCER 07/2017 SURGERY RELATED 09/23/19 GALLBLADDER RELATED 07/2019-08/2019 REVIEW OF SYSTEMS CONSTITUTIONAL: ANY RECENT FEVER NO . CHILLS NO . WEIGHT CHANGE OF UNKNOWN REASONS NO . GASTROENTEROLOGY: NEW UNEXPLAINABLE CHANGES IN BOWEL CONTROL NO . CONSTIPATION NO . GENITOURINARY: ANY NEW CHANGE IN BLADDER CONTROL? NO . NEUROLOGY: NEW ONSET DIZZINESS OR NEUROLOGICAL CHANGES NOT MENTIONED NO . NEW NUMBNESS OR PAIN PATTERNS NOT MENTIONED AND PERTINENT TO TODAY'S VISIT NO . CARDIOLOGY: NEW CHEST PRESSURE NO . NEW CHEST PAIN NO . RESPIRATORY: UNEXPLAINABLE COUGH NO . NEW SHORTNESS OF BREATH NO . VITAL SIGNS WT 280.6 LBS, HT 69 IN, BMI 41.43 INDEX, BP 132/61 MM HG, HR 76 /MIN, RR 18 /MIN, TEMP 97.2 F, OXYGEN SAT % 99%, SAFE IN ENV? (Y/N) YES, NA INITIALS AW 1144. EXAMINATION GENERAL EXAMINATION: GENERAL AWAKE,ALERT ,PLEASANT . PSYCH AFFECT NORMAL . LUNGS: LUNG OLSEN ARE CLEAR TO AUSCULTATION BILATERALLY. GOOD MOVEMENT OF AIR . HEART: S1, S2 IN A REGULAR RATE AND RHYTHM. NO SIGNIFICANT MURMURS, RUBS OR GALLOPS NOTED . ASSESSMENTS FIBROMYALGIA - M79.7 (PRIMARY) LUMBAR BACK PAIN WITH RADICULOPATHY AFFECTING LEFT LOWER EXTREMITY - M54.17 CHRONIC PRESCRIPTION OPIATE USE - Z79.891 TREATMENT FIBROMYALGIA CONTINUE GABAPENTIN TABLET, 800 MG, 1 CAPSULE, ORALLY, THREE TIMES DAILY CONTINUE TIZANIDINE HCL TABLET, 4 MG, 1 TABLET NEEDED, ORALLY, THREE TIMES A DAY CONTINUE BELBUCA FILM, 600 MCG, 1 FILM TO THE GUM, BUCALLY, BID MDD2 CONTINUE OXYCODONE HCL TABLET, 5 MG, 1 TO 2 TAB, ORALLY, Q8H PRN MDD5 NOTES: ISTOP REGISTRY REVIEWED AND DEMONSTRATES COMPLLIANCE. BRINGS IN MEDICATIONS WHICH IS APPROPRIATE FOR WHAT WAS DISPENSED. RECENT URINE TOXICOLOGY REVIEWED. NO UNAUTHORIZED MEDICATIONS. NO ILLICIT SUBSTANCES AND PRESCRIBED MEDICATIONS WERE PRESENT. , RISKS OF NARCOTIC/OPIOD MEDICATIONS INCLUDES BUT IS NOT LIMITED TO RISK OF DEPENDANCE/DEVELOPMENT OF ADDICTION, MOOD DISTURBANCE AND DEPRESSION, OSTEOPOROSIS, HORMONAL AND LABIDAL CHANGES, RESPIRATORY DEPRESSION AND . PATIENT IS ADVISED NOT TO DRIVE OR DRINK ALCOHOL WHILE ON THESE MEDICATIONS. PROCEDURE CODES FA211 ESTABILISHED PATIENT [facility] CHARGE DISPOSITION & COMMUNICATION FOLLOW UP 3 MONTHS (REASON: MEDICATION MANAGEMENT/CHRONIC PAIN/URINE TOX) ELECTRONICALLY SIGNED BY ALDO RUBIN ON 08/21/2020 AT 09:39 AM EST DISCLAIMER : THIS IS A VISIT SUMMARY EXTRACTED FROM THE [employer] CHART. IT IS NOT A COPY OF THE [employer] PROGRESS NOTE. MAL
== END ==
LOC: M PAIN 11:30
PROVIDERS: ATTEND Nurse Practitioner Family
DX: M79.7 Fibromyalgia (principal); M54.17 Radiculopathy, lumbosacral region; E11.9 Type 2 diabetes mellitus without complications; G47.33 Obstructive sleep apnea (adult) (pediatric); D50.9 Iron deficiency anemia, unspecified; G43.909 Migraine, unspecified, not intractable, without status migrainosus; Z98.84 Bariatric surgery status; Z87.891 Personal history of nicotine dependence; E66.01 Morbid (severe) obesity due to excess calories; Z68.41 Body mass index [BMI] 40.0-44.9, adult; Z79.4 Long term (current) use of insulin; Z79.891 Long term (current) use of opiate analgesic; Z79.899 Other long term (current) drug therapy
CPT/HCPCS: 36415; 80053; 82607; 82746; 83036; 85025; G0463

== ENCOUNTER → 2020-08-11 | Outpatient (CLI) | payer MEDICARE ==
[2020-08-11 14:23] LABS: BASO % 0.4 % (0.0-1.0); EOS # 0.1 10^3/uL (0.0-0.5); EOS % 1.1 % (0.0-3.0); HEMATOCRIT 38.8 % (36.0-47.0); HEMOGLOBIN 12.4 g/dl (12.0-15.5); LYMPH # 1.4 10^3/uL (1.5-5.0); LYMPH % 26.8 % (24.0-44.0); MEAN CORPUSCULAR HEMOGLOBIN 31.1 pg (27.0-33.0); MEAN CORPUSCULAR VOLUME 97.2 fl (80.0-96.0); MONO # 0.4 10^3/uL (0.0-0.8); MONO % 7.2 % (0.0-5.0); NEUTROPHILS # 3.5 10^3/uL (1.5-8.5); NEUTROPHILS % 64.3 % (36.0-66.0); PLATELET COUNT, AUTOMATED 231 10^3/uL (150-450); RED BLOOD COUNT 3.99 10^6/uL (4.00-5.40); WHITE BLOOD COUNT 5.4 10^3/uL (4.0-10.0)
[2020-08-11 14:46] LABS: HEMOGLOBIN A1c 6.8 %
[2020-08-11 14:52] LABS: ALBUMIN 3.2 GM/DL (3.2-5.2); ALT/SGPT 33 U/L (12-78); BILIRUBIN,TOTAL 0.5 MG/DL (0.2-1.0); BLOOD UREA NITROGEN 9 MG/DL (7-18); CALCIUM LEVEL 9.2 MG/DL (8.5-10.1); CARBON DIOXIDE LEVEL 27 MEQ/L (21-32); CHLORIDE LEVEL 106 MEQ/L (98-107); CREATININE FOR GFR 0.86 MG/DL (0.55-1.30); GLOMERULAR FILTRATION RATE > 60.0 (>51); GLUCOSE, FASTING 201 MG/DL (70-100); POTASSIUM SERUM 4.6 MEQ/L (3.5-5.1); SODIUM LEVEL 141 MEQ/L (136-145); TOTAL PROTEIN 6.6 GM/DL (6.4-8.2)
[2020-08-11 15:00] LABS: FOLATE > 24.0 NG/ML (>5.4); VITAMIN B12 LEVEL 1317 PG/ML (247-911)
== END ==
LOC: M LAB 13:44
PROVIDERS: ATTEND Family Medicine
DX: E11.9 Type 2 diabetes mellitus without complications (principal)

== ENCOUNTER → 2020-10-11 | Outpatient (CLI) | payer MEDICARE ==
--- NOTE | 2020-10-11 13:11 | REPMRS ---
Patient History The patient states she has not had a clinical breast exam in over a year. Patient is postmenopausal and is nulliparous. Family history of pancreatic cancer at age 60 in paternal grandmother, prostate cancer at age 80 in paternal grandfather. No Hormone Replacement Therapy Digital Woman Screen Mammo: October 11, 2020 - Exam #: [id number] Bilateral CC and MLO view(s) were taken. Technologist: Amelia Beckham, Technologist Prior study comparison: November 20, 2018, bilateral digital mammo screening bilat, performed at [facility]. September 26, 2015, bilateral digital mammo screening bilat, performed at [place], [place]. December 15, 2013, bilateral digital mammo screening bilat. FINDINGS: The breast tissue is almost entirely fat. The Volpara volumetric breast density category is: A. There has been no change in the appearance of the mammogram from the prior studies. There is no interval development of dominant mass, architectural distortion, or grouped microcalcification typical of malignancy. 3-D tomosynthesis shows no additional findings. Assessment: BI-RADS/ACR category 1 mammogram. Negative Mammogram. Recommendation Routine screening mammogram of both breasts in 1 year (for women over age 40). This patient's [facility] Lifetime Breast Cancer RIsk is estimated at 11.1 %. This mammogram was interpreted with the aid of an FDA-approved computer-aided dectection system. Electronically Signed By: Robson Manzano MD 10/11/20 1941
== END ==
LOC: M WHC 12:24
PROVIDERS: ATTEND Family Medicine
DX: Z12.31 Encounter for screening mammogram for malignant neoplasm of breast (principal)

== ENCOUNTER → 2020-11-10 | Outpatient (CLI) | payer MEDICARE ==
[~2020-11-10] MED LIST changes: +GABA-282 PO; -GABA-843 PO
--- NOTE | 2020-11-15 05:46 | ECWPNPC ---
PATIENT NAME: ANGEL WILSON : 1960 GENDER: FEMALE VISIT DATE: 11/10/2020 DISCHARGE DATE: 11/10/20 1155 VISIT LOCKED DATE TIME: PHYSICIAN: RADHA CRUZ PHYSICIAN PAGER NO: ACTIVE RESOURCE: RADHA CRUZ REASON FOR APPOINTMENT 1. BACK PAIN HISTORY OF PRESENT ILLNESS DEPRESSION SCREENING: PHQ-2 (2015 EDITION) LITTLE INTEREST OR PLEASURE IN DOING THINGS?NOT AT ALL FEELING DOWN, DEPRESSED, OR HOPELESS?NOT AT ALL TOTAL SCORE0 GENERAL: HERE FOR FOLLOW-UP AND MEDICATION MANAGEMENT OF CHRONIC LOW BACK PAIN. HAS BEEN UNABLE TO AFFORD BELBUCA WHICH COSTS HER $200 AFTER INSURANCE. CURRENTLY USING OXYCODONE 5 MG TABLET AND TAKING 5 A DAY. DISCUSSED USING LONG-ACTING EXTENDED RELEASE OXYCODONE. PATIENT SEEMS RECEPTIVE. SHE IS AWARE THAT WE WOULD BE REDUCING SHORT ACTING TABLETS. BRINGS IN HER MEDICATION WHICH IS APPROPRIATE FOR WHAT WAS DISPENSED. -. FALL RISK SCREENING: SCREENING :NO FALLS REPORTED IN THE LAST YEAR PAIN SCREENING: PATIENT HAS A COMPLAINT OF ACUTE OR CHRONIC PAIN :YES LOCATION OF PAIN:HEAD, NECK, BOTH SHOULDERS, UPPER BACK, MID BACK, LOW BACK, LEG(S) INTENSITY OF PAIN (SCALE OF 1 TO 10):8.5 WHAT DOES YOUR PAIN FEEL LIKE:ACHING, SHARP, STABBING DURATION:CONTINOUS, CONSTANT PAIN IS INCREASED BY:ACTIVITIES PAIN IS DECREASED BY:USE OF PAIN MEDICATIONS TREATMENT/MEDICATIONS USED TO MANAGE PAIN:OPIOIDS LEVEL OF RELIEF FROM PAIN TREATMENTS IN THE PAST:50% PAIN HAS INTERFERED WITH THE FOLLOWING:BATHING/DRESSING, WALKING ABILITY, HOUSEWORK, SLEEP, TRANSPORTATION, TOILETING NURSING NOTE: -. PAIN CENTER INTAKE QUESTIONS: DO YOU HAVE A HISTORY OF MRSA? :NO DO YOU TAKE A BLOOD THINNERS? :NO DO YOU HAVE ANY BLEEDING DISORDERS? :NO ANY NEW NUMBNESS OR WEAKNESS IN YOUR LEGS OR ARMS? :YES WRISTS AND HANDS AND LEGS AND FEET ANY PACEMAKER,DEFIBRILLATOR, OR DORSAL COLUMN STIMULATOR? :NO DO YOU HAVE ANY RASHES OR OPEN SORES? :NO ARE YOU ALLERGIC TO IV DYE? :NO ARE YOU DIABETIC? :YES ANY NEW PROBLEMS WITH YOUR MEDICATIONS? :YES BELBUCA COSTS TOO MUCH HAVE YOU RECEIVED A VACCINE IN THE PAST 30 DAYS? :NO DO YOU PLAN TO RECEIVE A VACCINE IN THE NEXT 21 DAYS? :NO DO YOU NEED ANY PRESCRIPTION? :NO DO YOU TAKE ANY IMMUNOSUPPRESSIVE MEDICATIONS? :NO IS THERE A CHANCE YOU COULD BE ? :NO ARE YOU BREAST FEEDING? :NO CURRENT MEDICATIONS TAKING HAIR SKIN AND NAILS FORMULA - TABLET 1 CAP ORALLY THREE TIMES DAILY TAKING CPAP MASK DIRECTED _ DAILY ICD10 G47.33 TAKING VITAMIN C 1000 MG TABLET 1 TABLET ORALLY BID TAKING BD INSULIN SYRINGE 30G X 1/2 MISCELLANEOUS 1 INJECTION _ FOUR TIMES DAILY ICD10 E11.65 TAKING INSULIN SYRINGE 30G X 5/16 MISCELLANEOUS USE DIRECTED ACHS E11.65 , NOTES: OK TO SUBSTITUTE FORMULARY PREFERRED BRAND AND PATIENT PREFERRED SIZE. TAKING RELION INSULIN SYRINGE 30G X 5/16 MISCELLANEOUS DIRECTED ACHS E11.9 TAKING B-100 - TABLET 1 TABLET ORALLY ONCE A DAY, NOTES: OTC TAKING SUMATRIPTAN SUCCINATE 100 MG TABLET 1 TABLET NEEDED, MAY REPEAT DOSE ONE TIME IF NO RESPONSE IN 2 HOURS ORALLY ONCE A DAY NEEDED (MDD2 , MAX MONTHLY HEADACHES 4) TAKING FERROUS SULFATE 325 (65 FE) MG TABLET 1 TABLET ORALLY ONCE A DAY TAKING AMITRIPTYLINE HCL 25 MG TABLET 1 TABLET AT BEDTIME ORALLY ONCE A DAY TAKING ATORVASTATIN CALCIUM 10 MG TABLET TAKE 1 TABLET BY MOUTH ONCE A DAY TAKING PANTOPRAZOLE SODIUM 40 MG TABLET DELAYED RELEASE 1 TABLET ORALLY ONCE A DAY TAKING CEPHALEXIN 500MG CAPSULE 1 CAPSULE ORALLY THREE TIMES DAILY NEEDED TAKING GABAPENTIN 800 MG TABLET 1 CAPSULE ORALLY THREE TIMES DAILY TAKING TIZANIDINE HCL 4 MG TABLET 1 TABLET NEEDED ORALLY THREE TIMES A DAY TAKING NOVOLIN R 100 UNIT/ML SOLUTION SLIDING SCALE INJECTION THREE TO FOUR TIMES DAILY TAKING NOVOLIN N 100 UNIT/ML SUSPENSION 20 UNITS SUBCUTANEOUS BEFORE BEDTIME TAKING METFORMIN HCL ER 500 MG TABLET 24 HOUR SUSTAINED RELEASE 2 TABLETS ORALLY TWICE A DAY TAKING RELION INSULIN SYRINGE 31G X " 0.5 ML MISCELLANEOUS DIRECTED ORALLY QID TAKING OXYCODONE HCL 5 MG TABLET 1 TO 2 TAB ORALLY Q8H PRN MDD5 TAKING VITAMIN D3 25 MCG (1000 UT) CAPSULE 1 CAPSULE ORALLY ONCE A DAY TAKING ZINC 30 MG CAPSULE 1 CAPSULE ORALLY ONCE A DAY NOT-TAKING BELBUCA 600 MCG FILM 1 FILM TO THE GUM BUCALLY BID MDD2 NOT-TAKING CEPHALEXIN 500 MG CAPSULE 1 CAPSULE ORALLY THREE TIMES DAILY NOT-TAKING ONETOUCH VERIO - STRIP DIRECTED IN VITRO QID ICD10 Z79 MEDICATION LIST REVIEWED AND RECONCILED WITH THE PATIENT PAST MEDICAL HISTORY CHRONIC NECK PAIN CHRONIC LBP, ON DISABILITY FOR IT, ON CHRONIC OPIATES BY PAIN CLINIC TYPE 2 DIABETES ON INSULIN AND METFORMIN, A1C 7.10 FEB 2018 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 SURGICAL HISTORY GASTRIC BYPASS 01/2013 FIBROUS TUMOR REMOVALS (47 OVER HER LIFETIME) MULTIPLE TONSILECTOMY 2010 ULCER REPAIR 07/19/17 DENTAL- TEETH EXTRACTED 12/2018-05/2019 GALLBLADDER REMOVAL 09/23/19 BILATERAL CARPAL TUNNEL RELEASE 10/2020 SOCIAL HISTORY GENERAL: TOBACCO USE ARE YOU A:FORMER SMOKER HOW LONG HAS IT BEEN SINCE YOU LAST SMOKED?> 10 YEARS LATEX QUESTIONNAIRE LATEX ALLERGY : HAVE YOU EVER DEVELOPED ANY TYPE OF REACTION AFTER HANDLING LATEX PRODUCTS SUCH RUBBER GLOVES, CONDOMS, DIAPHRAGMS, BALLOONS, SOCKS, OR UNDERWEAR?NO LATEX ALLERGY : HAVE YOU EVER DEVELOPED ANY TYPE OF REACTION DURING OR AFTER DENTAL APPOINTMENT, VAGINAL/RECTAL EXAMINATION, SURGICAL PROCEDURE, OR ANY OTHER EXPOSURE?NO DATE ASKED : 03/23/2020 LATEX RISK : HAVE YOU EVER HAD ANY DIFFICULTY BREATHING OR HIVES AFTER EATING OR HANDLING ANY FRUITS, OR VEGETABLES; SUCH KIWI, BANANAS, STONE FRUITS, OR CHESTNUTSNO LATEX RISK : DO YOU HAVE A PREVIOUS PERSONAL HISTORY OF MORE THAN NINE SURGERIES, SPINA BIFIDA, OR REPEATED CATHERIZATIONS? NO LATEX RISK : ARE YOU FREQUENTLY EXPOSED TO LATEX PRODUCTS IN YOUR OCCUPATION?NO LUNG CANCER SCREENING SMOKING STATUS:FORMER SMOKER BMI CARE GOAL FOLLOW-UP ABOVE NORMAL BMI FOLLOW-UPDIETARY MANAGEMENT EDUCATION, GUIDANCE, AND COUNSELING ALCOHOL SCREENING DID YOU HAVE A DRINK CONTAINING ALCOHOL IN THE PAST YEAR?YES HOW OFTEN DID YOU HAVE SIX OR MORE DRINKS ON ONE OCCASION IN THE PAST YEAR?NEVER (0 POINTS) HOW MANY DRINKS DID YOU HAVE ON A TYPICAL DAY WHEN YOU WERE DRINKING IN THE PAST YEAR?1 OR 2 (0 POINTS) HOW OFTEN DID YOU HAVE A DRINK CONTAINING ALCOHOL IN THE PAST YEAR?NEVER (0 POINTS) POINTS0 INTERPRETATIONNEGATIVE RECREATIONAL DRUG USE DRUG USE?NO CAFFEINE CAFFEINE USE?YES COFFEE, SODA SEXUAL HX HAD SEX IN THE LAST 12 MONTHS (VAGINAL, ORAL, OR ANAL)?NO HAVE YOU EVER HAD AN STD?NO HIV / HEP-C SCREENING HIV TEST OFFERED TO PATIENT:YES DATE OFFERED:06/18/2018 TEST ACCEPTED:NO HEP-C TEST OFFERED TO PATIENT:YES DATE OFFERED:06/18/2018 REASON:PATIENT DECLINED TEST ACCEPTED:NO REASON:PATIENT DECLINED BROCHURE PROVIDED TO PATIENTYES HOLINESS [id number] RELIGION LANGUAGE LANGUAGES SPOKEN:IRANIAN EDUCATION LEVEL OF EDUCATION:NOT FINISHED COLLEGE LEARNING BARRIERS / SPECIAL NEEDS CHANGE FROM LAST VISIT?NO BARRIERS TO LEARNING?NO HEARING IMPAIRED?NO VISION IMPAIRED?YES COGNITIVELY IMPAIRED?NO :CORRECTIVE LENSES READINESS TO LEARN?YES LEARNING PREFERENCES?NO LEARNING CAPABILITIES PRESENT?YES EMOTIONAL BARRIERS?NO SPECIAL DEVICES?YES :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 DIET: NO CONCENTRATED SWEETS., CARBOHYDRATE CONTROLLED. EXERCISE: DAILY. MARITAL STATUS: . OTHERS AT HOME: SPOUSE. - HAS THE PATIENT BEEN EDUCATED REGARDING HIS/HER PLAN OF CARE?YES HAS THE PATIENT BEEN EDUCATED REGARDING PAIN, THE RISK FOR PAIN, THE IMPORTANCE OF EFFECTIVE PAIN MANAGEMENT, AND THE PAIN ASSESSMENT PROCESS?YES ADVANCE DIRECTIVE ADVANCE DIRECTIVE DISCUSSED WITH PATIENT:YES PT STATES SHE DOES NOT HAVE HCP AND DECLINES INFO AND ASSISTANCE AT THIS TIME. HOSPITALIZATION/MAJOR DIAGNOSTIC PROCEDURE SURGICAL BLEEDING ULCER 07/2017 SURGERY RELATED 09/23/19 GALLBLADDER RELATED 07/2019-08/2019 REVIEW OF SYSTEMS CONSTITUTIONAL: ANY RECENT FEVER NO . CHILLS NO . WEIGHT CHANGE OF UNKNOWN REASONS NO . GASTROENTEROLOGY: NEW UNEXPLAINABLE CHANGES IN BOWEL CONTROL NO . CONSTIPATION NO . GENITOURINARY: ANY NEW CHANGE IN BLADDER CONTROL? NO . NEUROLOGY: NEW ONSET DIZZINESS OR NEUROLOGICAL CHANGES NOT MENTIONED NO . NEW NUMBNESS OR PAIN PATTERNS NOT MENTIONED AND PERTINENT TO TODAY'S VISIT NO . CARDIOLOGY: NEW CHEST PRESSURE NO . NEW CHEST PAIN NO . RESPIRATORY: UNEXPLAINABLE COUGH NO . NEW SHORTNESS OF BREATH NO . VITAL SIGNS WT 287 LBS, HT 69 IN, BMI 42.38 INDEX, BP 148/84 MM HG, HR 103 /MIN, RR 16 /MIN, TEMP 98.5 F, OXYGEN SAT % 97, SAFE IN ENV? (Y/N) Y, REVIEWED BY: EM. EXAMINATION GENERAL EXAMINATION: GENERAL AWAKE,ALERT ,PLEASANT . PSYCH AFFECT NORMAL . LUNGS: LUNG OLSEN ARE CLEAR TO AUSCULTATION BILATERALLY. GOOD MOVEMENT OF AIR . HEART: S1, S2 IN A REGULAR RATE AND RHYTHM. NO SIGNIFICANT MURMURS, RUBS OR GALLOPS NOTED . ASSESSMENTS LOW BACK PAIN AT MULTIPLE SITES - M54.5 (PRIMARY) CHRONIC PRESCRIPTION OPIATE USE - Z79.891 TREATMENT LOW BACK PAIN AT MULTIPLE SITES STOP BELBUCA FILM, 600 MCG, 1 FILM TO THE GUM, BUCALLY, BID MDD2 DECREASE OXYCODONE HCL TABLET, 5 MG, 1 TABLET, ORALLY, Q12 HRS PRN FOR SEVERE PAIN MDD2 #45 TAB SHOULD LAST 30 DAYS, 30 DAYS, 45, REFILLS 0 START OXYCODONE HCL ER TABLET ER 12 HOUR ABUSE-DETERRENT, 15 MG, 1 TABLET, ORALLY, EVERY 12 HRS MDD2, 30 DAYS, 60, REFILLS 0 REFILL GABAPENTIN TABLET, 800 MG, 1 CAPSULE, ORALLY, THREE TIMES DAILY, 90 DAY(S), 270, REFILLS 0 NOTES: ISTOP REGISTRY REVIEWED AND DEMONSTRATES COMPLLIANCE. BRINGS IN MEDICATIONS WHICH IS APPROPRIATE FOR WHAT WAS DISPENSED. RECENT URINE TOXICOLOGY REVIEWED. NO UNAUTHORIZED MEDICATIONS. NO ILLICIT SUBSTANCES AND PRESCRIBED MEDICATIONS WERE PRESENT. URINE TOX TODAY , RISKS OF NARCOTIC/OPIOD MEDICATIONS INCLUDES BUT IS NOT LIMITED TO RISK OF DEPENDANCE/DEVELOPMENT OF ADDICTION, MOOD DISTURBANCE AND DEPRESSION, OSTEOPOROSIS, HORMONAL AND LABIDAL CHANGES, RESPIRATORY DEPRESSION AND . PATIENT IS ADVISED NOT TO DRIVE OR DRINK ALCOHOL WHILE ON THESE MEDICATIONS. DISPOSITION & COMMUNICATION FOLLOW UP 3 MONTHS (REASON: MED MGMNT/REVIEW UTOX/F/U NEW START OXYCODONE ER) ELECTRONICALLY SIGNED BY ALDO RUBIN ON 11/14/2020 AT 01:02 PM EST DISCLAIMER : THIS IS A VISIT SUMMARY EXTRACTED FROM THE [employer] CHART. IT IS NOT A COPY OF THE [employer] PROGRESS NOTE. DERRELLD
== END ==
LOC: M PAIN 11:15
PROVIDERS: ATTEND Nurse Practitioner Family
DX: M54.5 Low back pain (principal); G89.29 Other chronic pain; E11.40 Type 2 diabetes mellitus with diabetic neuropathy, unspecified; M79.7 Fibromyalgia; G47.33 Obstructive sleep apnea (adult) (pediatric); D50.9 Iron deficiency anemia, unspecified; G43.909 Migraine, unspecified, not intractable, without status migrainosus; Z98.84 Bariatric surgery status; Z87.891 Personal history of nicotine dependence; E66.01 Morbid (severe) obesity due to excess calories; Z68.41 Body mass index [BMI] 40.0-44.9, adult; Z79.4 Long term (current) use of insulin; Z79.891 Long term (current) use of opiate analgesic; Z79.899 Other long term (current) drug therapy

== ENCOUNTER → 2021-01-12 | Outpatient (CLI) | payer MEDICARE ==
[~2021-01-12] MED LIST changes: -LISI-542 PO; +LISI-898 PO
[2021-01-12 16:38] LABS: BASO # 0.1 10^3/uL (0.0-0.2); BASO % 0.6 % (0.0-1.0); EOS # 0.1 10^3/uL (0.0-0.5); EOS % 1.5 % (0.0-3.0); HEMATOCRIT 42.4 % (36.0-47.0); HEMOGLOBIN 13.9 g/dl (12.0-15.5); LYMPH # 2.2 10^3/uL (1.5-5.0); LYMPH % 26.5 % (24.0-44.0); MEAN CORPUSCULAR HEMOGLOBIN 31.3 pg (27.0-33.0); MEAN CORPUSCULAR HGB CONC 32.8 g/dl (32.0-36.5); MEAN CORPUSCULAR VOLUME 95.5 fl (80.0-96.0); MONO # 0.4 10^3/uL (0.0-0.8); MONO % 4.5 % (2.0-8.0); NEUTROPHILS # 5.5 10^3/uL (1.5-8.5); NEUTROPHILS % 66.7 % (36.0-66.0); PLATELET COUNT, AUTOMATED 200 10^3/uL (150-450); RED BLOOD COUNT 4.44 10^6/uL (4.00-5.40); WHITE BLOOD COUNT 8.2 10^3/uL (4.0-10.0)
[2021-01-12 17:04] LABS: ALBUMIN 3.6 GM/DL (3.2-5.2); ALT/SGPT 88 U/L (12-78); BILIRUBIN,DIRECT 0.1 MG/DL (0.0-0.2); BILIRUBIN,TOTAL 0.3 MG/DL (0.2-1.0); BLOOD UREA NITROGEN 11 MG/DL (7-18); CREATININE FOR GFR 0.68 MG/DL (0.55-1.30); GLOMERULAR FILTRATION RATE > 60.0 (>51); IRON (FE) 93 UG/DL (50-170); PERCENT SATURATION 33.2 % (13.2-45.0); TOTAL IRON BINDING CAPACITY 280 UG/DL (250-450); TOTAL PROTEIN 6.9 GM/DL (6.4-8.2)
[2021-01-12 17:12] LABS: VITAMIN B12 LEVEL 1283 PG/ML
[2021-01-12 17:13] LABS: FOLATE > 24.0 NG/ML
[2021-01-16 03:06] LABS: IGASUB2 139.2 mg/dL (73.2-301.2); IGASUB3 33.8 mg/dL (13.4-97.9); IgA SERUM (part of Subclasses) 186 mg/dL (87-352); TISSUE TRANSGLUTAMINASE IgA <2 U/mL (0-3)
== END ==
LOC: M LAB 15:51
PROVIDERS: ATTEND Internal Medicine Gastroenterology
DX: R11.2 Nausea with vomiting, unspecified (principal); R19.7 Diarrhea, unspecified; R14.0 Abdominal distension (gaseous)

== ENCOUNTER → 2021-01-26 | Outpatient (CLI) | payer MEDICARE ==
--- NOTE | 2021-01-30 01:40 | ECWPNPC ---
PATIENT NAME: ANGEL WILSON : 1960 GENDER: FEMALE VISIT DATE: 01/26/2021 DISCHARGE DATE: 01/26/21 1219 VISIT LOCKED DATE TIME: PHYSICIAN: RADHA CRUZ PHYSICIAN PAGER NO: ACTIVE RESOURCE: RADHA CRUZ REASON FOR APPOINTMENT 1. MED MGMNT/REVIEW UTOX/F/U NEW START OXYCODONE ER HISTORY OF PRESENT ILLNESS GENERAL: HERE FOR FOLLOW-UP OF CHRONIC LOW BACK PAIN. URINE TOXICOLOGY IS REVIEWED. AGAIN THIS IS SHOWING POSITIVE FOR MARIJUANA. I HAVE SPOKEN TO HER BEFORE AND SAID THAT IF THIS HAPPENED AGAIN WE WOULD HAVE TO DISCONTINUE NARCOTIC PAIN MEDICATION. TODAY WE WILL DISCONTINUE HER CHRONIC PAIN MEDICATION. SHE WILL BE USING MARIJUANA FOR PAIN CONTROL. DISCUSSED TREATMENT PLAN. -. FALL RISK SCREENING: SCREENING ONE FALL REPORTED IN THE LAST YEAR WITHOUT INJURY.. PAIN SCREENING: PATIENT HAS A COMPLAINT OF ACUTE OR CHRONIC PAIN :YES LOCATION OF PAIN:LOW BACK INTENSITY OF PAIN (SCALE OF 1 TO 10):8 WHAT DOES YOUR PAIN FEEL LIKE:ACHING, CONTINOUS, SHARP, TENDER, SHOOTING DURATION:CONTINOUS, AWAKENS FROM SLEEP PAIN IS INCREASED BY:ACTIVITIES, PROLONGED STANDING PAIN IS DECREASED BY:USE OF PAIN MEDICATIONS, SITTING NURSING NOTE: -. PAIN CENTER INTAKE QUESTIONS: DO YOU HAVE A HISTORY OF MRSA? :NO DO YOU TAKE A BLOOD THINNERS? :NO DO YOU HAVE ANY BLEEDING DISORDERS? :NO ANY NEW NUMBNESS OR WEAKNESS IN YOUR LEGS OR ARMS? :NO NEUROPATHY IN BILATERAL FEET AND HANDS ANY PACEMAKER,DEFIBRILLATOR, OR DORSAL COLUMN STIMULATOR? :NO DO YOU HAVE ANY RASHES OR OPEN SORES? :NO ARE YOU ALLERGIC TO IV DYE? :NO ARE YOU DIABETIC? :YES TYPE II ANY NEW PROBLEMS WITH YOUR MEDICATIONS? :NO HAVE YOU RECEIVED A VACCINE IN THE PAST 30 DAYS? :NO DO YOU PLAN TO RECEIVE A VACCINE IN THE NEXT 21 DAYS? :NO DO YOU NEED ANY PRESCRIPTION? :YES TIZANIDINE AND GABAPENTIN SENT TO [facility]. OXYCODONE TO [facility], OXYCONTIN TO [facility] DO YOU TAKE ANY IMMUNOSUPPRESSIVE MEDICATIONS? :NO DO YOU HAVE ANY KIDNEY OR LIVER DISEASE? :NO IS THERE A CHANCE YOU COULD BE ? :NO ARE YOU BREAST FEEDING? :NO CURRENT MEDICATIONS TAKING HAIR SKIN AND NAILS FORMULA - TABLET 1 CAP ORALLY THREE TIMES DAILY TAKING CPAP MASK DIRECTED _ DAILY ICD10 G47.33 TAKING VITAMIN C 1000 MG TABLET 1 TABLET ORALLY BID TAKING BD INSULIN SYRINGE 30G X 1/2 MISCELLANEOUS 1 INJECTION _ FOUR TIMES DAILY ICD10 E11.65 TAKING INSULIN SYRINGE 30G X 5/16 MISCELLANEOUS USE DIRECTED [facility] E11.65 , NOTES: OK TO SUBSTITUTE FORMULARY PREFERRED BRAND AND PATIENT PREFERRED SIZE. TAKING RELION INSULIN SYRINGE 30G X 5/16 MISCELLANEOUS DIRECTED [facility] E11.9 TAKING B-100 - TABLET 1 TABLET ORALLY ONCE A DAY, NOTES: OTC TAKING FERROUS SULFATE 325 (65 FE) MG TABLET 1 TABLET ORALLY ONCE A DAY TAKING AMITRIPTYLINE HCL 25 MG TABLET 1 TABLET AT BEDTIME ORALLY ONCE A DAY TAKING ATORVASTATIN CALCIUM 10 MG TABLET TAKE 1 TABLET BY MOUTH ONCE A DAY TAKING CEPHALEXIN 500MG CAPSULE 1 CAPSULE ORALLY THREE TIMES DAILY NEEDED TAKING NOVOLIN R 100 UNIT/ML SOLUTION SLIDING SCALE INJECTION THREE TO FOUR TIMES DAILY TAKING NOVOLIN N 100 UNIT/ML SUSPENSION 20 UNITS SUBCUTANEOUS BEFORE BEDTIME TAKING METFORMIN HCL ER 500 MG TABLET 24 HOUR SUSTAINED RELEASE 2 TABLETS ORALLY TWICE A DAY TAKING RELION INSULIN SYRINGE 31G X 15/64" 0.5 ML MISCELLANEOUS DIRECTED ORALLY QID TAKING VITAMIN D3 25 MCG (1000 UT) CAPSULE 1 CAPSULE ORALLY ONCE A DAY TAKING ZINC 30 MG CAPSULE 1 CAPSULE ORALLY ONCE A DAY TAKING GABAPENTIN 800 MG TABLET 1 CAPSULE ORALLY THREE TIMES DAILY TAKING PANTOPRAZOLE SODIUM 40 MG TABLET DELAYED RELEASE 1 TABLET ORALLY ONCE A DAY TAKING METFORMIN HCL ER 500 MG TABLET EXTENDED RELEASE 24 HOUR TAKE 2 TABLETS BY MOUTH TWICE DAILY TAKING TIZANIDINE HCL 4 MG TABLET 1 TABLET NEEDED ORALLY THREE TIMES A DAY TAKING OXYCODONE HCL 5 MG TABLET 1 TABLET ORALLY Q12 HRS PRN FOR SEVERE PAIN MDD2 #45 TAB SHOULD LAST 30 DAYS TAKING SUMATRIPTAN SUCCINATE 100 MG TABLET 1 TABLET NEEDED, MAY REPEAT DOSE ONE TIME IF NO RESPONSE IN 2 HOURS ORALLY ONCE A DAY NEEDED (MDD2 , MAX MONTHLY HEADACHES 4) TAKING OXYCODONE HCL ER 15 MG TABLET ER 12 HOUR ABUSE-DETERRENT 1 TABLET ORALLY EVERY 12 HRS MDD2 TAKING DIFLUCAN 100 MG TABLET 1 TABLET ORALLY , NOTES: TAKING WITH CEPHALEXIN TAKING FISH OIL 1000 MG CAPSULE 1 CAPSULE ORALLY TWICE DAILY TAKING MAY USE _ 1 CAP PREDERVISION ORALLY TWICE DAILY TAKING EYE DROPS 0.05 % SOLUTION 1 DROP INTO AFFECTED EYE NEEDED OPHTHALMIC FOUR TIMES A DAY UNKNOWN CEPHALEXIN 500 MG CAPSULE 1 CAPSULE ORALLY THREE TIMES DAILY UNKNOWN ONETOUCH VERIO - STRIP DIRECTED IN VITRO QID ICD10 Z79 MEDICATION LIST REVIEWED AND RECONCILED WITH THE PATIENT PAST MEDICAL HISTORY CHRONIC NECK PAIN CHRONIC LBP, ON DISABILITY FOR IT, ON CHRONIC OPIATES BY PAIN CLINIC TYPE 2 DIABETES ON INSULIN AND METFORMIN, A1C 7.10 FEB 2018 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 SURGICAL HISTORY GASTRIC BYPASS 01/2013 FIBROUS TUMOR REMOVALS (47 OVER HER LIFETIME) MULTIPLE TONSILECTOMY 2010 ULCER REPAIR 07/19/17 DENTAL- TEETH EXTRACTED 12/2018-05/2019 GALLBLADDER REMOVAL 09/23/19 BILATERAL CARPAL TUNNEL RELEASE 10/2020 SOCIAL HISTORY GENERAL: TOBACCO USE ARE YOU A:FORMER SMOKER HOW LONG HAS IT BEEN SINCE YOU LAST SMOKED?> 10 YEARS LATEX QUESTIONNAIRE LATEX ALLERGY : HAVE YOU EVER DEVELOPED ANY TYPE OF REACTION AFTER HANDLING LATEX PRODUCTS SUCH RUBBER GLOVES, CONDOMS, DIAPHRAGMS, BALLOONS, SOCKS, OR UNDERWEAR?NO LATEX ALLERGY : HAVE YOU EVER DEVELOPED ANY TYPE OF REACTION DURING OR AFTER DENTAL APPOINTMENT, VAGINAL/RECTAL EXAMINATION, SURGICAL PROCEDURE, OR ANY OTHER EXPOSURE?NO LATEX RISK : HAVE YOU EVER HAD ANY DIFFICULTY BREATHING OR HIVES AFTER EATING OR HANDLING ANY FRUITS, OR VEGETABLES; SUCH KIWI, BANANAS, STONE FRUITS, OR CHESTNUTSNO LATEX RISK : DO YOU HAVE A PREVIOUS PERSONAL HISTORY OF MORE THAN NINE SURGERIES, SPINA BIFIDA, OR REPEATED CATHERIZATIONS? NO LATEX RISK : ARE YOU FREQUENTLY EXPOSED TO LATEX PRODUCTS IN YOUR OCCUPATION?NO DATE ASKED : 01/26/2021 ALCOHOL USE: OCCCASIONAL. LUNG CANCER SCREENING SMOKING STATUS:FORMER SMOKER BMI CARE GOAL FOLLOW-UP ABOVE NORMAL BMI FOLLOW-UPDIETARY MANAGEMENT EDUCATION, GUIDANCE, AND COUNSELING ALCOHOL SCREENING DID YOU HAVE A DRINK CONTAINING ALCOHOL IN THE PAST YEAR?YES HOW OFTEN DID YOU HAVE SIX OR MORE DRINKS ON ONE OCCASION IN THE PAST YEAR?NEVER (0 POINTS) HOW MANY DRINKS DID YOU HAVE ON A TYPICAL DAY WHEN YOU WERE DRINKING IN THE PAST YEAR?1 OR 2 (0 POINTS) HOW OFTEN DID YOU HAVE A DRINK CONTAINING ALCOHOL IN THE PAST YEAR?NEVER (0 POINTS) POINTS0 INTERPRETATIONNEGATIVE RECREATIONAL DRUG USE DRUG USE?NO CAFFEINE CAFFEINE USE?YES COFFEE, SODA SEXUAL HX HAD SEX IN THE LAST 12 MONTHS (VAGINAL, ORAL, OR ANAL)?NO HAVE YOU EVER HAD AN STD?NO HIV / HEP-C SCREENING HIV TEST OFFERED TO PATIENT:YES DATE OFFERED:06/18/2018 TEST ACCEPTED:NO HEP-C TEST OFFERED TO PATIENT:YES DATE OFFERED:06/18/2018 REASON:PATIENT DECLINED TEST ACCEPTED:NO REASON:PATIENT DECLINED BROCHURE PROVIDED TO PATIENTYES [employer] [id number] [employer] LANGUAGE LANGUAGES SPOKEN:RUSSIAN EDUCATION LEVEL OF EDUCATION:NOT FINISHED COLLEGE LEARNING BARRIERS / SPECIAL NEEDS CHANGE FROM LAST VISIT?NO BARRIERS TO LEARNING?NO HEARING IMPAIRED?NO VISION IMPAIRED?YES :CORRECTIVE LENSES COGNITIVELY IMPAIRED?NO READINESS TO LEARN?YES LEARNING PREFERENCES?NO LEARNING CAPABILITIES PRESENT?YES EMOTIONAL BARRIERS?NO SPECIAL DEVICES?YES :CANE PHLEBOTOMIST ASSOCIATE NEEDED?NO DOMESTIC VIOLENCE DO YOU FEEL SAFE IN YOUR ENVIRONMENT?YES OCCUPATION: DISABLED. DIET: NO CONCENTRATED SWEETS., CARBOHYDRATE CONTROLLED. EXERCISE: DAILY. MARITAL STATUS: . OTHERS AT HOME: SPOUSE. - HAS THE PATIENT BEEN EDUCATED REGARDING HIS/HER PLAN OF CARE?YES HAS THE PATIENT BEEN EDUCATED REGARDING PAIN, THE RISK FOR PAIN, THE IMPORTANCE OF EFFECTIVE PAIN MANAGEMENT, AND THE PAIN ASSESSMENT PROCESS?YES ADVANCE DIRECTIVE ADVANCE DIRECTIVE DISCUSSED WITH PATIENT:YES PT STATES SHE DOES NOT HAVE HCP AND DECLINES INFO AND ASSISTANCE AT THIS TIME. HOSPITALIZATION/MAJOR DIAGNOSTIC PROCEDURE SURGICAL BLEEDING ULCER 07/2017 SURGERY RELATED 09/23/19 GALLBLADDER RELATED 07/2019-08/2019 REVIEW OF SYSTEMS CONSTITUTIONAL: ANY RECENT FEVER NO . CHILLS NO . WEIGHT CHANGE OF UNKNOWN REASONS NO . GASTROENTEROLOGY: NEW UNEXPLAINABLE CHANGES IN BOWEL CONTROL NO . CONSTIPATION NO . GENITOURINARY: ANY NEW CHANGE IN BLADDER CONTROL? NO . NEUROLOGY: NEW ONSET DIZZINESS OR NEUROLOGICAL CHANGES NOT MENTIONED NO . NEW NUMBNESS OR PAIN PATTERNS NOT MENTIONED AND PERTINENT TO TODAY'S VISIT NO . CARDIOLOGY: NEW CHEST PRESSURE NO . PATIENT DENIES NO . RESPIRATORY: UNEXPLAINABLE COUGH NO . NEW SHORTNESS OF BREATH NO . VITAL SIGNS WT 293 LBS, HT 69 IN, BMI 43.26 INDEX, BP 156/73 MM HG, HR 89 /MIN, RR 18 /MIN, TEMP 96.1 F, OXYGEN SAT % 98%, SAFE IN ENV? (Y/N) YES, NA INITIALS SC 11:40, REVIEWED BY: ESA GRAY MA. EXAMINATION GENERAL EXAMINATION: GENERAL AWAKE,ALERT ,PLEASANT . PSYCH AFFECT NORMAL . LUNGS: LUNG OLSEN ARE CLEAR TO AUSCULTATION BILATERALLY. GOOD MOVEMENT OF AIR . HEART: S1, S2 IN A REGULAR RATE AND RHYTHM. NO SIGNIFICANT MURMURS, RUBS OR GALLOPS NOTED . ASSESSMENTS LOW BACK PAIN AT MULTIPLE SITES - M54.5 (PRIMARY) TREATMENT LOW BACK PAIN AT MULTIPLE SITES NOTES: SLOWLY REDUCE AND DISCONTINUE NARCOTIC PAIN MEDICATION WE DISCUSSED. [place] REASON:CHRONIC LOW BACK PAIN PENDING SURGERY/WANTS OFF NARCOTICS AND WOULD LIKE EVALUATION FOR MEDICAL MARIJUANA PROCEDURE CODES FA211 ESTABILISHED PATIENT [facility] FACILITY CHARGE DISPOSITION & COMMUNICATION FOLLOW UP CALL IF APPOINTMENT IS NEEDED (REASON: LOW BACK PAIN) ELECTRONICALLY SIGNED BY ALDO RUBIN ON 01/29/2021 AT 08:46 AM EDT DISCLAIMER : THIS IS A VISIT SUMMARY EXTRACTED FROM THE [employer] CHART. IT IS NOT A COPY OF THE [employer] PROGRESS NOTE. MAL
== END ==
LOC: M PAIN 11:30
PROVIDERS: ATTEND Nurse Practitioner Family
DX: M54.5 Low back pain (principal); E11.42 Type 2 diabetes mellitus with diabetic polyneuropathy; M79.7 Fibromyalgia; G47.33 Obstructive sleep apnea (adult) (pediatric); G43.909 Migraine, unspecified, not intractable, without status migrainosus; E78.5 Hyperlipidemia, unspecified; I25.2 Old myocardial infarction; Z87.891 Personal history of nicotine dependence; Z79.4 Long term (current) use of insulin; Z79.891 Long term (current) use of opiate analgesic; Z79.899 Other long term (current) drug therapy

== ENCOUNTER → 2021-02-01 | Outpatient (REF) | payer MEDICARE | LOC: M LAB REF 13:45 | PROVIDERS: ATTEND Internal Medicine Gastroenterology | DX: R11.2 Nausea with vomiting, unspecified (principal) ==

== ENCOUNTER → 2021-02-18 | Outpatient (CLI) | payer MEDICARE ==
[~2021-02-18] MED LIST changes: +AMIT25TA17 PO; +B-10TAB2 PO; +D 101000 PO; +FISH1000 PO; +SM HTAB3 PO; +ZINC1TAB2 PO
== END ==
LOC: M LABSMTC 09:07
PROVIDERS: ATTEND Anesthesiology
DX: Z01.818 Encounter for other preprocedural examination (principal); Z11.52 Encounter for screening for COVID-19

== ENCOUNTER 2021-02-23 09:48 | Day surgery (SDC) | payer MEDICARE ==
[~2021-02-23] VITALS: Ht 177.8 cm; Wt 128.8 kg
[~2021-02-23 09:48] MED LIST changes: +LIDOCAINE 2% 100MG/5ML SDV (FOR ANES.) As Ordered ONE; +NS 1,000 ML IV ONE; +fentaNYL 100 MCG/2 ML INJECTION (J3010) As Ordered ONE; +propofoL 500 MG/50 ML VIAL As Ordered ONE
[2021-02-23] MEDS ORDERED: propofoL 200 MG/20 ML VIAL As Ordered ONE (11:47)
--- NOTE | 2021-02-23 12:15 | ROOR ---
Patient Name: Lisa Vasquez Procedure Date: 02/23/2021 11:07 AM Date of : 1960 Age: 60 Room: [facility] Gender: Female Note Status: Finalized Procedure: Upper GI endoscopy Indications: Epigastric abdominal pain, Diarrhea Providers: Alon Ludwig MD Referring MD: Sheron Logan Md Requesting Provider: Medicines: Monitored Anesthesia Care Complications: No immediate complications. Procedure: Pre-Anesthesia Assessment: - Prior to the procedure, a History and Physical was performed, and patient medications and allergies were reviewed. The patient is competent. The risks and benefits of the procedure and the sedation options and risks were discussed with the patient. All questions were answered and informed consent was obtained. Patient identification and proposed procedure were verified by the physician, the nurse and the anesthesiologist in the procedure room. Mental Status Examination: alert and oriented. Airway Examination: normal oropharyngeal airway and neck mobility. Respiratory Examination: clear to auscultation. CV Examination: normal. Prophylactic Antibiotics: The patient does not require prophylactic antibiotics. Prior Anticoagulants: The patient has taken no previous anticoagulant or antiplatelet agents. ASA Grade Assessment: II - A patient with mild systemic disease. After reviewing the risks and benefits, the patient was deemed in satisfactory condition to undergo the procedure. The anesthesia plan was to use monitored anesthesia care (MAC). Immediately prior to administration of medications, the patient was re-assessed for adequacy to receive sedatives. The heart rate, respiratory rate, oxygen saturations, blood pressure, adequacy of pulmonary ventilation, and response to care were monitored throughout the procedure. The physical status of the patient was re-assessed after the procedure. The Endoscope was introduced through the mouth, and advanced to the second part of duodenum. The upper GI endoscopy was accomplished without difficulty. The patient tolerated the procedure well. Findings: The examined esophagus was normal. The Z-line was regular and was found 40 cm from the incisors. Evidence of a Maddison-en-Y gastrojejunostomy was found. The gastrojejunal anastomosis was characterized by healthy appearing mucosa. This was traversed. The idvhv-pd-kwlmwyu limb was characterized by healthy appearing mucosa. The jejunojejunal anastomosis was characterized by healthy appearing mucosa. The zhzmqvvu-nz-zsgeiku limb was not examined as it could not be found. Normal mucosa was found in the jejunum. Biopsies for histology were taken with a cold forceps for evaluation of celiac disease. Verification of patient identification for the specimen was done by the physician and nurse using the patient's name, date and medical record number. Estimated blood loss was minimal. Impression: - Normal esophagus. - Z-line regular, 40 cm from the incisors. - Maddison-en-Y gastrojejunostomy with gastrojejunal anastomosis characterized by healthy appearing mucosa. - Normal mucosa was found in the jejunum. Biopsied. Recommendation: - Patient has a contact number available for emergencies. The signs and symptoms of potential delayed complications were discussed with the patient. Return to normal activities tomorrow. Written discharge instructions were provided to the patient. - Post gastric bypass diet (small frequent meals and avoid fatty/ fried foods). - Continue present medications. - Await pathology results. - Telephone GI clinic for pathology results in 2 weeks. - Return to GI clinic if persistent symptoms or new symptoms. - Return to primary care physician. Procedure Code(s): --- Professional --- 49288, Esophagogastroduodenoscopy, flexible, transoral; with biopsy, single or multiple Diagnosis Code(s): --- Professional --- Z98.0, Intestinal bypass and anastomosis status R10.13, Epigastric pain R19.7, Diarrhea, unspecified CPT copyright 2019 [employer]. All rights reserved. The codes documented in this report are preliminary and upon nautical instrument mechanic review may be revised to meet current compliance requirements. Alon Ludwig MD Alon Ludwig MD 02/23/2021 12:15:14 PM Electronically signed by Alon Ludwig MD Number of Addenda: 0 Note Initiated On: 02/23/2021 11:07 AM Estimated Blood Loss: Estimated blood loss was minimal.
--- NOTE | 2021-02-23 12:18 | ROOR ---
Patient Name: Lisa Vasquez Procedure Date: 02/23/2021 11:08 AM Date of : 1960 Age: 60 Room: [facility] Gender: Female Note Status: Finalized Procedure: Colonoscopy Indications: Screening for colorectal malignant neoplasm Providers: Alon Ludwig MD Referring MD: Sheron Logan Md Requesting Provider: Medicines: Monitored Anesthesia Care Complications: No immediate complications. Procedure: Pre-Anesthesia Assessment: - Prior to the procedure, a History and Physical was performed, and patient medications and allergies were reviewed. The patient is competent. The risks and benefits of the procedure and the sedation options and risks were discussed with the patient. All questions were answered and informed consent was obtained. Patient identification and proposed procedure were verified by the physician, the nurse and the anesthesiologist in the procedure room. Mental Status Examination: alert and oriented. Airway Examination: normal oropharyngeal airway and neck mobility. Respiratory Examination: clear to auscultation. CV Examination: normal. Prophylactic Antibiotics: The patient does not require prophylactic antibiotics. Prior Anticoagulants: The patient has taken no previous anticoagulant or antiplatelet agents. ASA Grade Assessment: II - A patient with mild systemic disease. After reviewing the risks and benefits, the patient was deemed in satisfactory condition to undergo the procedure. The anesthesia plan was to use monitored anesthesia care (MAC). Immediately prior to administration of medications, the patient was re-assessed for adequacy to receive sedatives. The heart rate, respiratory rate, oxygen saturations, blood pressure, adequacy of pulmonary ventilation, and response to care were monitored throughout the procedure. The physical status of the patient was re-assessed after the procedure. The Colonoscope was introduced through the anus and advanced to the terminal ileum, with identification of the appendiceal orifice and IC valve. The colonoscopy was performed without difficulty. The patient tolerated the procedure well. The quality of the bowel preparation was good. The terminal ileum, ileocecal valve, appendiceal orifice, and rectum were photographed. Scope insertion time was 2 minutes. Scope withdrawal time was 9 minutes. The total duration of the procedure was 12 minutes. Findings: The perianal and digital rectal examinations were normal. The terminal ileum appeared normal. Three sessile polyps were found in the rectum, transverse colon and ascending colon. The polyps were 5 to 10 mm in size. These polyps were removed with a hot snare. Resection and retrieval were complete. Verification of patient identification for the specimen was done by the physician and nurse using the patient's name, date and medical record number. Estimated blood loss was minimal. Non-bleeding external and internal hemorrhoids were found during retroflexion. The hemorrhoids were medium-sized. Impression: - The examined portion of the ileum was normal. - Three 5 to 10 mm polyps in the rectum, in the transverse colon and in the ascending colon, removed with a hot snare. Resected and retrieved. - Non-bleeding external and internal hemorrhoids. Recommendation: - Patient has a contact number available for emergencies. The signs and symptoms of potential delayed complications were discussed with the patient. Return to normal activities tomorrow. Written discharge instructions were provided to the patient. - High fiber diet and Post gastric bypass diet (small frequent meals and avoid fatty/ fried foods). - Continue present medications. - Await pathology results. - Repeat colonoscopy in 3 - 5 years for surveillance based on pathology results. - Telephone GI clinic for pathology results in 2 weeks. - Return to primary care physician. Procedure Code(s): --- Professional --- 21229, Colonoscopy, flexible; with removal of tumor(s), polyp(s), or other lesion(s) by snare technique Diagnosis Code(s): --- Professional --- Z12.11, Encounter for screening for malignant neoplasm of colon K64.8, Other hemorrhoids K62.1, Rectal polyp K63.5, Polyp of colon CPT copyright 2019 [employer]. All rights reserved. The codes documented in this report are preliminary and upon department secretary review may be revised to meet current compliance requirements. Alon Ludwig MD Alon Ludwig MD 02/23/2021 12:17:55 PM Electronically signed by Alon Ludwig MD Number of Addenda: 0 Note Initiated On: 02/23/2021 11:08 AM Estimated Blood Loss: Estimated blood loss was minimal.
[2021-02-23 12:32] VITALS: BP 135/72
== END 2021-02-23 12:33 | disposition home or self-care (01) ==
LOC: M OPP 09:48
PROVIDERS: ATTEND Internal Medicine Gastroenterology
DX: Z12.11 Encounter for screening for malignant neoplasm of colon (principal); K62.1 Rectal polyp; K63.5 Polyp of colon; K64.8 Other hemorrhoids; Z98.0 Intestinal bypass and anastomosis status; K52.9 Noninfective gastroenteritis and colitis, unspecified; K21.9 Gastro-esophageal reflux disease without esophagitis; M79.7 Fibromyalgia; G47.30 Sleep apnea, unspecified; E11.40 Type 2 diabetes mellitus with diabetic neuropathy, unspecified; Z79.4 Long term (current) use of insulin; Z79.899 Other long term (current) drug therapy; Z87.891 Personal history of nicotine dependence
CPT/HCPCS: 43239; 45385; 88305; J3010

== ENCOUNTER → 2021-03-28 | Outpatient (CLI) | payer MEDICARE ==
[~2021-03-28] MED LIST changes: -LIDOCAINE 2% 100MG/5ML SDV (FOR ANES.) As Ordered ONE; -NS 1,000 ML IV ONE; -fentaNYL 100 MCG/2 ML INJECTION (J3010) As Ordered ONE; -propofoL 500 MG/50 ML VIAL As Ordered ONE
[2021-03-28 17:13] LABS: ALBUMIN 3.7 GM/DL (3.2-5.2); ALT/SGPT 94 U/L (12-78); BILIRUBIN,TOTAL 0.5 MG/DL (0.2-1.0); BLOOD UREA NITROGEN 9 MG/DL (7-18); CALCIUM LEVEL 9.3 MG/DL (8.5-10.1); CARBON DIOXIDE LEVEL 31 MEQ/L (21-32); CHLORIDE LEVEL 106 MEQ/L (98-107); CHOLESTEROL LEVEL 147 MG/DL (<200); CHOLESTEROL RISK RATIO 2.161 (<5); CREATININE FOR GFR 0.66 MG/DL (0.55-1.30); FERRITIN 264 NG/ML (8-252); GLOMERULAR FILTRATION RATE > 60.0 (>51); GLUCOSE, FASTING 116 MG/DL (70-100); HDL CHOLESTEROL 68 MG/DL (>40); LDL CHOLESTEROL 51 MG/DL (<100); NON-HDL-C 79 MG/DL; POTASSIUM SERUM 4.9 MEQ/L (3.5-5.1); SODIUM LEVEL 141 MEQ/L (136-145); TOTAL PROTEIN 7.1 GM/DL (6.4-8.2); TRIGLYCERIDES LEVEL 139 MG/DL (<150)
[2021-03-28 17:19] LABS: VITAMIN B12 LEVEL 919 PG/ML
[2021-03-28 17:20] LABS: FOLATE > 24.0 NG/ML
[2021-03-28 17:22] LABS: MALB URINE SIEMENS 12.1 MG/L; MAU/CREAT RATIO 9.7 MCG/MG (0.0-30.0)
[2021-03-28 17:27] LABS: BASO % 0.4 % (0.0-1.0); EOS # 0.1 10^3/uL (0.0-0.5); EOS % 1.2 % (0.0-3.0); LYMPH # 1.7 10^3/uL (1.5-5.0); LYMPH % 22.1 % (24.0-44.0); MEAN CORPUSCULAR HEMOGLOBIN 31.5 pg (27.0-33.0); MEAN CORPUSCULAR HGB CONC 32.6 g/dl (32.0-36.5); MEAN CORPUSCULAR VOLUME 96.6 fl (80.0-96.0); MONO # 0.4 10^3/uL (0.0-0.8); MONO % 5.3 % (2.0-8.0); NEUTROPHILS # 5.4 10^3/uL (1.5-8.5); NEUTROPHILS % 70.7 % (36.0-66.0); PLATELET COUNT, AUTOMATED 213 10^3/uL (150-450); RED BLOOD COUNT 4.45 10^6/uL (4.00-5.40); WHITE BLOOD COUNT 7.6 10^3/uL (4.0-10.0)
== END ==
LOC: M LAB 15:41
PROVIDERS: ATTEND Family Medicine
DX: E11.9 Type 2 diabetes mellitus without complications (principal)

== ENCOUNTER → 2021-04-24 | Outpatient (CLI) | payer MEDICARE ==
[~2021-04-24] MED LIST changes: -LISI-898 PO; -LISI2.5T2 PO; +LISI2.5T9 PO; +LISI5TAB11 PO
[2021-04-24 12:54] LABS: BASO % 0.4 % (0.0-1.0); EOS # 0.1 10^3/uL (0.0-0.5); EOS % 1.1 % (0.0-3.0); HEMATOCRIT 42.5 % (36.0-47.0); HEMOGLOBIN 14.1 g/dl (12.0-15.5); LYMPH # 1.7 10^3/uL (1.5-5.0); LYMPH % 23.4 % (24.0-44.0); MEAN CORPUSCULAR HGB CONC 33.2 g/dl (32.0-36.5); MEAN CORPUSCULAR VOLUME 96.4 fl (80.0-96.0); MONO # 0.4 10^3/uL (0.0-0.8); MONO % 5.8 % (2.0-8.0); NEUTROPHILS # 5.1 10^3/uL (1.5-8.5); PLATELET COUNT, AUTOMATED 217 10^3/uL (150-450); RED BLOOD COUNT 4.41 10^6/uL (4.00-5.40); WHITE BLOOD COUNT 7.4 10^3/uL (4.0-10.0)
[2021-04-24 13:16] LABS: ALBUMIN 3.7 GM/DL (3.2-5.2); ALT/SGPT 66 U/L (12-78); BILIRUBIN,TOTAL 0.4 MG/DL (0.2-1.0); BLOOD UREA NITROGEN 10 MG/DL (7-18); CALCIUM LEVEL 9.5 MG/DL (8.5-10.1); CARBON DIOXIDE LEVEL 27 MEQ/L (21-32); CHLORIDE LEVEL 106 MEQ/L (98-107); CREATININE FOR GFR 0.77 MG/DL (0.55-1.30); FERRITIN 203 NG/ML (8-252); GLOMERULAR FILTRATION RATE > 60.0 (>51); GLUCOSE, FASTING 167 MG/DL (70-100); IRON (FE) 64 UG/DL (50-170); PERCENT SATURATION 20.5 % (13.2-45.0); POTASSIUM SERUM 4.7 MEQ/L (3.5-5.1); SODIUM LEVEL 141 MEQ/L (136-145); TOTAL IRON BINDING CAPACITY 312 UG/DL (250-450); TOTAL PROTEIN 7.3 GM/DL (6.4-8.2)
[2021-04-24 13:34] LABS: HEPATITIS B SURFACE ANTIGEN NEGATIVE (NEGATIVE)
[2021-04-24 13:41] LABS: HEMOGLOBIN A1c 7.4 %
== END ==
LOC: M LAB 11:59
PROVIDERS: ATTEND Student in an Organized Health Care Education/Training Program
DX: R74.8 Abnormal levels of other serum enzymes (principal)

== ENCOUNTER 2021-06-11 13:31 | Emergency (ER) | payer MEDICARE ==
[~2021-06-11] VITALS: Ht 177.8 cm; Wt 129.6 kg
[~2021-06-11 13:31] MED LIST changes: +LISI-898 PO; -LISI5TAB11 PO
[2021-06-11] MEDS ORDERED: LIDOCAINE 5% (LIDODERM) PATCH TD ONE (16:05)
[2021-06-11] MEDS ORDERED: methocarbamoL 750 MG TAB PO ONE (16:05)
--- NOTE | 2021-06-11 16:41 | REP ---
INDICATION: fall, pt tender, decr. ROM COMPARISON: None. TECHNIQUE: Three views right shoulder. FINDINGS: There is no evidence of acute fracture, dislocation, or intrinsic bone disease.There is moderate narrowing and spurring at the acromioclavicular joint. IMPRESSION: No fracture or dislocation. Moderate degenerative changes AC joint. <Electronically signed by Neal Arteaga > 06/11/21 [id number]
--- NOTE | 2021-06-11 16:42 | REP ---
INDICATION: fall, pt tender, decr. ROM. COMPARISON: None. TECHNIQUE: Two views right hip. FINDINGS: There is no evidence of acute fracture, dislocation or intrinsic bone disease. There is mild joint space narrowing, subchondral sclerosis and spurring at the hip joint. IMPRESSION: No acute fracture or dislocation. Mild degenerative changes. <Electronically signed by Neal Arteaga > 06/11/21 [id number]
[2021-06-11 16:56] VITALS: BP 118/78
[2021-06-11] MEDS ORDERED: **NOTE PATIENT COMMENT** MISC XX SCH (21:00)
== END 2021-06-11 17:02 | disposition home or self-care (01) ==
LOC: M ED 13:31
DX: M25.511 Pain in right shoulder (principal); M25.551 Pain in right hip; W01.0XXA Fall on same level from slipping, tripping and stumbling without subsequent striking against object, initial encounter; Y92.098 Other place in other non-institutional residence as the place of occurrence of the external cause; Y93.01 Activity, walking, marching and hiking; Y99.8 Other external cause status; E11.9 Type 2 diabetes mellitus without complications; M79.7 Fibromyalgia; R51.9 Headache, unspecified; Z79.899 Other long term (current) drug therapy; Z79.4 Long term (current) use of insulin

== ENCOUNTER → 2021-06-14 | Outpatient (CLI) | payer MEDICARE ==
--- NOTE | 2021-06-14 14:11 | REP ---
INDICATION: PAIN IN RT SHOULDER. COMPARISON: 06/11/2021. TECHNIQUE: Three views right shoulder. FINDINGS: There is a nondisplaced fracture now visible of the greater tuberosity of the proximal humerus. No other fracture or dislocation is seen. There is moderate spurring of the acromion. IMPRESSION: Nondisplaced fracture greater tuberosity of proximal humerus. <Electronically signed by Neal Arteaga > 06/14/21 [id number]
== END ==
LOC: M SOG 13:46
PROVIDERS: ATTEND Orthopaedic Surgery
DX: S42.251A Displaced fracture of greater tuberosity of right humerus, initial encounter for closed fracture (principal); X58.XXXA Exposure to other specified factors, initial encounter; Y92.89 Other specified places as the place of occurrence of the external cause; Y93.89 Activity, other specified; Y99.9 Unspecified external cause status

== ENCOUNTER → 2021-06-28 | Outpatient (CLI) | payer MEDICARE ==
--- NOTE | 2021-06-28 15:38 | REP ---
INDICATION: RT SHOULDER FX. COMPARISON: 06/14/2021 TECHNIQUE: Three views FINDINGS: The proximal humeral fracture is unchanged. The glenohumeral and acromioclavicular relationships remain within normal limits and are unchanged. IMPRESSION: No significant change. <Electronically signed by Geovanny Mancini > 06/28/21 0193
== END ==
LOC: M SOG 15:15
PROVIDERS: ATTEND Orthopaedic Surgery
DX: S42.254A Nondisplaced fracture of greater tuberosity of right humerus, initial encounter for closed fracture (principal); W18.30XA Fall on same level, unspecified, initial encounter; Y92.009 Unspecified place in unspecified non-institutional (private) residence as the place of occurrence of the external cause

== ENCOUNTER → 2021-07-13 | Outpatient (CLI) | payer MEDICARE ==
--- NOTE | 2021-07-13 13:55 | REP ---
INDICATION: RT SHOULDER FX. COMPARISON: Comparison shoulder radiographs June 28, 2021. TECHNIQUE: AP views are obtained internal and external rotation. Two views. FINDINGS: The right glenohumeral and acromioclavicular joints are normally aligned. There is osteoarthritic hypertrophy at the AC joint and some inferior acromion process spurring is seen. The previously noted greater tuberosity fracture is again seen with subtle periarticular ossicles adjacent. Position and appearance is unchanged from June 14, 2021 as well as June 28, 2021. IMPRESSION: Greater tuberosity fracture fragments again seen unchanged in position. Mild AC joint osteoarthritis. <Electronically signed by Robson Manzano > 07/13/21 [id number]
== END ==
LOC: M SOG 12:11
PROVIDERS: ATTEND Orthopaedic Surgery
DX: S42.254D Nondisplaced fracture of greater tuberosity of right humerus, subsequent encounter for fracture with routine healing (principal)

== ENCOUNTER → 2021-07-20 | Outpatient (CLI) | payer MEDICARE | LOC: M LAB 13:29 | PROVIDERS: ATTEND Student in an Organized Health Care Education/Training Program | DX: E11.9 Type 2 diabetes mellitus without complications (principal) ==

== ENCOUNTER 2021-08-10 10:52 | Outpatient (RCR) | payer MEDICARE | END 2021-08-12 | LOC: M PT 10:52 | PROVIDERS: ATTEND Orthopaedic Surgery | DX: S42.254A Nondisplaced fracture of greater tuberosity of right humerus, initial encounter for closed fracture (principal) ==

== ENCOUNTER 2021-08-16 10:50 | Outpatient (RCR) | payer MEDICARE ==
[~2021-08-16 10:50] MED LIST changes: -LISI-898 PO; +LISI5TAB11 PO
== END 2021-09-11 ==
LOC: M PT 10:50
PROVIDERS: ATTEND Orthopaedic Surgery
DX: S42.254A Nondisplaced fracture of greater tuberosity of right humerus, initial encounter for closed fracture (principal)

== ENCOUNTER → 2021-08-22 | Outpatient (CLI) | payer MEDICARE ==
[~2021-08-22] MED LIST changes: +LISI-898 PO; -LISI5TAB11 PO
--- NOTE | 2021-08-22 12:52 | REP ---
INDICATION: RT HUMERUS FX. COMPARISON: 07/13/2021 TECHNIQUE: Two views of the right shoulder were obtained. FINDINGS: Mild degenerative changes are again noted about the AC joint. The previously noted fracture of the greater tuberosity of the humerus is again noted. Small fragments from the fracture are again seen in the soft tissues and are unchanged. The major fracture lines are becoming less distinct indicative of normal healing. IMPRESSION: Healing greater tuberosity fracture with small fracture fragments in the soft tissues unchanged from previous. <Electronically signed by Wisam Gomez > 08/22/21 [id number]
== END ==
LOC: M SOG 11:51
PROVIDERS: ATTEND Orthopaedic Surgery
DX: S42.254D Nondisplaced fracture of greater tuberosity of right humerus, subsequent encounter for fracture with routine healing (principal); W18.30XD Fall on same level, unspecified, subsequent encounter; Y92.009 Unspecified place in unspecified non-institutional (private) residence as the place of occurrence of the external cause

== ENCOUNTER → 2021-10-22 | Outpatient (CLI) | payer MEDICARE ==
[~2021-10-22] MED LIST changes: -LISI-898 PO; +LISI5TAB11 PO
== END ==
LOC: M SOG 13:01
PROVIDERS: ATTEND Orthopaedic Surgery
DX: S42.254D Nondisplaced fracture of greater tuberosity of right humerus, subsequent encounter for fracture with routine healing (principal)

== ENCOUNTER → 2022-01-02 | Outpatient (CLI) | payer MEDICARE, OTHER | LOC: M WHC 13:15 | PROVIDERS: ATTEND Student in an Organized Health Care Education/Training Program | DX: Z12.31 Encounter for screening mammogram for malignant neoplasm of breast (principal) ==

== ENCOUNTER → 2022-02-13 | Outpatient (CLI) | payer OTHER | LOC: M RAD 16:10 | PROVIDERS: ATTEND Orthopaedic Surgery | DX: M75.41 Impingement syndrome of right shoulder (principal) ==

== ENCOUNTER → 2022-04-04 | Outpatient (CLI) | payer OTHER ==
[2022-04-04 13:29] LABS: BASO % 0.5 % (0.0-1.0); EOS # 0.1 10^3/uL (0.0-0.5); EOS % 1.2 % (0.0-3.0); HEMATOCRIT 44.5 % (36.0-47.0); HEMOGLOBIN 14.4 g/dl (12.0-15.5); LYMPH # 1.9 10^3/uL (1.5-5.0); LYMPH % 25.1 % (24.0-44.0); MEAN CORPUSCULAR HEMOGLOBIN 31.2 pg (27.0-33.0); MEAN CORPUSCULAR HGB CONC 32.4 g/dl (32.0-36.5); MEAN CORPUSCULAR VOLUME 96.5 fl (80.0-96.0); MONO # 0.4 10^3/uL (0.0-0.8); MONO % 4.7 % (2.0-8.0); NEUTROPHILS # 5.2 10^3/uL (1.5-8.5); NEUTROPHILS % 68.1 % (36.0-66.0); PLATELET COUNT, AUTOMATED 236 10^3/uL (150-450); RED BLOOD COUNT 4.61 10^6/uL (4.00-5.40); WHITE BLOOD COUNT 7.7 10^3/uL (4.0-10.0)
[2022-04-04 13:59] LABS: HEMOGLOBIN A1c 7.1 %
[2022-04-04 14:08] LABS: ALBUMIN 3.7 GM/DL (3.2-5.2); ALT/SGPT 93 U/L (12-78); BILIRUBIN,TOTAL 0.5 MG/DL (0.2-1.0); BLOOD UREA NITROGEN 12 MG/DL (7-18); CALCIUM LEVEL 10.2 MG/DL (8.5-10.1); CARBON DIOXIDE LEVEL 29 MEQ/L (21-32); CHLORIDE LEVEL 106 MEQ/L (98-107); CHOLESTEROL LEVEL 147 MG/DL (<200); CREATININE FOR GFR 0.69 MG/DL (0.55-1.30); GLOMERULAR FILTRATION RATE > 60.0 (>51); GLUCOSE, FASTING 145 MG/DL (70-100); HDL CHOLESTEROL 60 MG/DL (>40); LDL CHOLESTEROL 57 MG/DL (<100); NON-HDL-C 87 MG/DL; SODIUM LEVEL 142 MEQ/L (136-145); TOTAL PROTEIN 7.1 GM/DL (6.4-8.2); TRIGLYCERIDES LEVEL 149 MG/DL (<150)
== END ==
LOC: M PLALAB 10:43 → M PLAIMG 10:43
PROVIDERS: ATTEND Student in an Organized Health Care Education/Training Program
DX: Z12.4 Encounter for screening for malignant neoplasm of cervix (principal); M17.0 Bilateral primary osteoarthritis of knee; E11.40 Type 2 diabetes mellitus with diabetic neuropathy, unspecified; K42.9 Umbilical hernia without obstruction or gangrene; E78.2 Mixed hyperlipidemia; M25.561 Pain in right knee; M25.562 Pain in left knee

== ENCOUNTER → 2022-04-12 | Outpatient (CLI) | payer OTHER | LOC: M WHC 06:51 | PROVIDERS: ATTEND Student in an Organized Health Care Education/Training Program | DX: K42.9 Umbilical hernia without obstruction or gangrene (principal) ==

== ENCOUNTER → 2022-04-24 | Outpatient (CLI) | payer OTHER ==
[~2022-04-24] MED LIST changes: +GASTROGRAFIN SOLUTION 30ML (Q9963) As Ordered ONE; +ISOVUE-370 76% 100ML VIAL As Ordered ONE
== END ==
LOC: M RAD 12:59
PROVIDERS: ATTEND Student in an Organized Health Care Education/Training Program
DX: K42.9 Umbilical hernia without obstruction or gangrene (principal)
CPT/HCPCS: 74177; Q9963; Q9967

== ENCOUNTER → 2022-05-17 | Outpatient (CLI) | payer OTHER ==
[~2022-05-17] MED LIST changes: -GASTROGRAFIN SOLUTION 30ML (Q9963) As Ordered ONE; -ISOVUE-370 76% 100ML VIAL As Ordered ONE; +PROHANCE 279.3MG/ML 15ML VIAL ONE; +PROHANCE 279.3MG/ML 5ML VIAL ONE
== END ==
LOC: M PLAIMG 12:14
PROVIDERS: ATTEND Orthopaedic Surgery
DX: D21.21 Benign neoplasm of connective and other soft tissue of right lower limb, including hip (principal)
CPT/HCPCS: 73723; A9576

== ENCOUNTER → 2022-06-13 | Outpatient (CLI) | payer OTHER ==
[~2022-06-13] MED LIST changes: +D31000CA4 PO; +FLUC10TA PO; +GABA800T4 PO; +INSUN SC; +PRESCAP PO; -PROHANCE 279.3MG/ML 15ML VIAL ONE; -PROHANCE 279.3MG/ML 5ML VIAL ONE; +ZINC30CA PO
== END ==
LOC: M EKG 10:41
PROVIDERS: ATTEND Anesthesiology
DX: G47.9 Sleep disorder, unspecified (principal)

== ENCOUNTER → 2022-06-13 | Outpatient (CLI) | payer OTHER | LOC: M LABSMTC 10:19 | PROVIDERS: ATTEND Anesthesiology | DX: Z01.818 Encounter for other preprocedural examination (principal); Z11.52 Encounter for screening for COVID-19 ==

== ENCOUNTER 2022-06-18 06:04 | Day surgery (SDC) | payer OTHER ==
[~2022-06-18] VITALS: Ht 177.8 cm; Wt 116.1 kg
[2022-06-18] MEDS ORDERED: LR 1,000 ML IV SCH ×3 (06:20→09:20)
[2022-06-18] MEDS ORDERED: LIDOCAINE 2% 100MG/5ML SDV (FOR ANES.) As Ordered ONE (06:58)
[2022-06-18] MEDS ORDERED: propofoL 200 MG/20 ML VIAL As Ordered ONE (06:58)
[2022-06-18] MEDS ORDERED: ROCURONIUM BROMIDE 50 MG/5 ML VIAL As Ordered ONE ×2 (06:58→07:58)
[2022-06-18] MEDS ORDERED: HYDROmorphone HCL 2MG/ML 1ML VIAL As Ordered ONE (07:00)
[2022-06-18] MEDS ORDERED: fentaNYL 250 MCG/5 ML INJECTION As Ordered ONE (07:01)
[2022-06-18] MEDS ORDERED: MIDAZOLAM INJ 2MG/2ML VIAL (J2250 PER 1MG) As Ordered ONE (07:01)
[2022-06-18] MEDS ORDERED: ONDANSETRON 4MG 2ML VIAL As Ordered ONE ×2 (07:03→11:42)
[2022-06-18] MEDS ORDERED: dexameTHASONE 4 MG/ML 1ML VIAL (J1100 PER 1MG) As Ordered ONE (07:03)
[2022-06-18] MEDS ORDERED: BUPIVACAINE HCL 0.25% 30ML VIAL As Ordered ONE (07:08)
[2022-06-18] MEDS ORDERED: ACETAMINOPHEN 1000MG 100ML IV BTL (OFIRMEV) (J0131 PER 10MG) As Ordered ONE (08:08)
[2022-06-18] MEDS ORDERED: SUGAMMADEX SODIUM 500 MG/5 ML VIAL (BRIDION) As Ordered ONE (08:13)
[2022-06-18] MEDS ORDERED: LABETALOL 100MG/20ML VIAL As Ordered ONE (08:33)
[2022-06-18] MEDS ORDERED: ONDANSETRON 4MG 2ML VIAL IV PRN (09:20)
[2022-06-18] MEDS ORDERED: fentaNYL 100 MCG/2 ML INJECTION IV PRN (09:20)
[2022-06-18] MEDS: HYDROMORPHONE HCL 0.5 MG/ 0.5 ML SYRINGE (J1170 PER 1) IV PRN ×4 (09:55→10:40)
[2022-06-18] MEDS: PERCOCET 5MG/325MG TAB PO PRN ×2 (09:56→10:23)
[2022-06-18] MEDS ORDERED: ACETAMINOPHEN TAB 650MG DOSE (2X325MG) PO PRN (10:50)
[2022-06-18] MEDS ORDERED: NORCO, ANEXSIA 5/325MG TABLET (HYDROcodone/ACETAMINOPHEN) PO PRN (10:50)
[2022-06-18 11:40] VITALS: BP 152/82
== END 2022-06-18 11:55 | disposition home or self-care (01) ==
LOC: M SDC 06:04
PROVIDERS: ATTEND Surgery
DX: K42.9 Umbilical hernia without obstruction or gangrene (principal); M54.50 Low back pain, unspecified; M54.2 Cervicalgia; G89.29 Other chronic pain; M79.7 Fibromyalgia; G47.33 Obstructive sleep apnea (adult) (pediatric); M19.90 Unspecified osteoarthritis, unspecified site; E11.40 Type 2 diabetes mellitus with diabetic neuropathy, unspecified; D64.9 Anemia, unspecified; G43.909 Migraine, unspecified, not intractable, without status migrainosus; E78.5 Hyperlipidemia, unspecified; I10 Essential (primary) hypertension; I25.2 Old myocardial infarction; Z98.61 Coronary angioplasty status; Z98.84 Bariatric surgery status; Z79.899 Other long term (current) drug therapy; Z79.84 Long term (current) use of oral hypoglycemic drugs; Z79.4 Long term (current) use of insulin; Z87.891 Personal history of nicotine dependence
CPT/HCPCS: 49652; C1781; J0131; J1100; J1170; J2250; J2405; J3010; S2900

== ENCOUNTER → 2022-07-10 | Outpatient (CLI) | payer OTHER ==
[~2022-07-10] MED LIST changes: +ISOVUE-300 61% 50ML VIAL As Ordered ONE; +LIDOCAINE 1% MDV 20ML VIAL As Ordered ONE; +PROHANCE 279.3MG/ML 5ML VIAL As Ordered ONE
== END ==
LOC: M RADPRO 06:10
PROVIDERS: ATTEND Orthopaedic Surgery
DX: S43.431A Superior glenoid labrum lesion of right shoulder, initial encounter (principal); S46.011A Strain of muscle(s) and tendon(s) of the rotator cuff of right shoulder, initial encounter; X58.XXXA Exposure to other specified factors, initial encounter; Y92.9 Unspecified place or not applicable
CPT/HCPCS: 23350; 73223; 77002; A9576; Q9967

== ENCOUNTER → 2022-09-04 | Outpatient (CLI) | payer OTHER ==
[~2022-09-04] MED LIST changes: -ISOVUE-300 61% 50ML VIAL As Ordered ONE; -LIDOCAINE 1% MDV 20ML VIAL As Ordered ONE; +OMEG10002 PO; -PROHANCE 279.3MG/ML 5ML VIAL As Ordered ONE; +VITA100016 PO; +ZINC30TA2 PO
== END ==
LOC: M LABSMTC 10:14
PROVIDERS: ATTEND Anesthesiology
DX: Z01.812 Encounter for preprocedural laboratory examination (principal); Z20.822 Contact with and (suspected) exposure to COVID-19

== ENCOUNTER 2022-09-09 07:14 | Day surgery (SDC) | payer OTHER ==
[~2022-09-09] VITALS: Ht 177.8 cm; Wt 126.0 kg
[~2022-09-09 07:14] MED LIST changes: +oxyCODONE 5MG TAB PO ONE
[2022-09-09] MEDS ORDERED: LR 1,000 ML IV SCH ×2 (07:55→13:50)
[2022-09-09] MEDS ORDERED: ceFAZolin SOD 1 GM in D5W MINI-BAG PLUS 50 ML IV ONE (08:25)
[2022-09-09] MEDS ORDERED: ROPIvacaine 0.5% 30ML INJECTION (J2795 PER 1MG) PN ONE (08:25)
[2022-09-09] MEDS ORDERED: ceFAZolin SOD 2 GM in IV 1 EA IV ONE (08:25)
[2022-09-09] MEDS ORDERED: dexameTHASONE 10MG/1ML VIAL PRES.FREE (J1100 PER 1MG) PN ONE (08:25)
[2022-09-09] MEDS ORDERED: EPINEPHrine INJ 1 MG/ML 1ML AMP PN ONE (08:25)
[2022-09-09] MEDS: MIDAZOLAM INJ 2MG/2ML VIAL (J2250 PER 1MG) IV PRN ×2 (08:37→09:18)
[2022-09-09] MEDS: fentaNYL 100 MCG/2 ML INJECTION IV PRN ×2 (08:37→09:18)
[2022-09-09] MEDS ORDERED: EPINEPHrine INJ 1 MG/ML 1ML AMP As Ordered ONE ×4 (08:49→11:31)
[2022-09-09] MEDS ORDERED: ROCURONIUM BROMIDE 50 MG/5 ML VIAL As Ordered ONE (08:55)
[2022-09-09] MEDS ORDERED: LIDOCAINE 2% 100MG/5ML SDV (FOR ANES.) As Ordered ONE (08:55)
[2022-09-09] MEDS ORDERED: SUGAMMADEX SODIUM 500 MG/5 ML VIAL (BRIDION) As Ordered ONE (08:55)
[2022-09-09] MEDS ORDERED: propofoL 200 MG/20 ML VIAL As Ordered ONE (08:55)
[2022-09-09] MEDS ORDERED: ONDANSETRON 4MG 2ML VIAL As Ordered ONE (08:55)
[2022-09-09] MEDS ORDERED: KETOROLAC 60MG 2ML VIAL As Ordered ONE (08:56)
[2022-09-09] MEDS ORDERED: fentaNYL 100 MCG/2 ML INJECTION As Ordered ONE (08:56)
[2022-09-09] MEDS ORDERED: METOCLOPRAMIDE INJ 10MG/2ML VIAL (J2765 PER 1) As Ordered ONE (08:56)
[2022-09-09] MEDS ORDERED: MIDAZOLAM INJ 2MG/2ML VIAL (J2250 PER 1MG) As Ordered ONE (08:56)
[2022-09-09] MEDS ORDERED: dexameTHASONE 4 MG/ML 1ML VIAL (J1100 PER 1MG) As Ordered ONE (08:56)
[2022-09-09] MEDS ORDERED: BUPIVACAINE/EPIN 0.5% 30 ML VIAL As Ordered ONE (09:42)
[2022-09-09] MEDS ORDERED: AMIT75TA PO (09:56)
[2022-09-09] MEDS ORDERED: TRANEXAMIC ACID 100 MG/ML 10ML VIAL As Ordered ONE (09:59)
[2022-09-09] MEDS ORDERED: HOME MED LIST COMPLETE! XX SCH (10:00)
[2022-09-09] MEDS ORDERED: LABETALOL 100MG/20ML VIAL As Ordered ONE (11:09)
[2022-09-09] MEDS ORDERED: ACETAMINOPHEN 1000MG 100ML IV BAG As Ordered ONE (11:09)
[2022-09-09] MEDS ORDERED: hydrALAZINE 20MG/ML 1ML VIAL (J0360 PER 20MG) As Ordered ONE (11:09)
[2022-09-09] MEDS ORDERED: fentaNYL 100 MCG/2 ML INJECTION IV PRN (12:40)
[2022-09-09] MEDS ORDERED: oxyCODONE 5MG TAB PO PRN (12:40)
[2022-09-09] MEDS ORDERED: ONDANSETRON 4MG 2ML VIAL IV PRN (12:40)
[2022-09-09] MEDS ORDERED: OXYC1TAB23 PO (13:39)
[2022-09-09 15:57] VITALS: BP 117/60
== END 2022-09-09 16:10 | disposition home or self-care (01) ==
LOC: M SDC 07:14
PROVIDERS: ATTEND Orthopaedic Surgery
DX: M75.121 Complete rotator cuff tear or rupture of right shoulder, not specified as traumatic (principal); M19.011 Primary osteoarthritis, right shoulder; S43.431A Superior glenoid labrum lesion of right shoulder, initial encounter; X58.XXXA Exposure to other specified factors, initial encounter; E11.40 Type 2 diabetes mellitus with diabetic neuropathy, unspecified; G43.909 Migraine, unspecified, not intractable, without status migrainosus; F41.9 Anxiety disorder, unspecified; M79.7 Fibromyalgia; Z87.891 Personal history of nicotine dependence; Z79.899 Other long term (current) drug therapy; Z79.84 Long term (current) use of oral hypoglycemic drugs; Z79.4 Long term (current) use of insulin
CPT/HCPCS: 23430; 29824; 29827; 64415; C1713; J0131; J0171; J0360; J0690; J1100; J1885; J2250; J2405; J2765; J3010

== ENCOUNTER → 2022-10-09 | Outpatient (CLI) | payer OTHER ==
[~2022-10-09] MED LIST changes: +AMIT75TA PO; +OXYC1TAB23 PO; -oxyCODONE 5MG TAB PO ONE
== END ==
LOC: M SOG 08:00
PROVIDERS: ATTEND Orthopaedic Surgery
DX: Z47.89 Encounter for other orthopedic aftercare (principal)

== ENCOUNTER → 2023-06-25 | Outpatient (CLI) | payer OTHER ==
[~2023-06-25] MED LIST changes: -AMIT25TA17 PO; +AMIT25TA19 PO
== END ==
LOC: M WHC 09:04
PROVIDERS: ATTEND Student in an Organized Health Care Education/Training Program
DX: Z12.31 Encounter for screening mammogram for malignant neoplasm of breast (principal); M81.0 Age-related osteoporosis without current pathological fracture

== ENCOUNTER → 2023-07-30 | Outpatient (REF) | payer OTHER | LOC: M LAB REF 18:11 | PROVIDERS: ATTEND Surgery | DX: D17.9 Benign lipomatous neoplasm, unspecified (principal) ==

== ENCOUNTER → 2023-10-30 | Outpatient (CLI) | payer MEDICARE ==
[~2023-10-30] MED LIST changes: +INSU100V19 SC; -INSURSD SC
[2023-10-30 15:52] LABS: BASO % 0.7 % (0.0-1.0); EOS # 0.1 10^3/uL (0.0-0.5); HEMATOCRIT 42.1 % (36.0-47.0); HEMOGLOBIN 13.8 g/dl (12.0-15.5); LYMPH # 1.6 10^3/uL (1.5-5.0); MEAN CORPUSCULAR HEMOGLOBIN 30.7 pg (27.0-33.0); MEAN CORPUSCULAR HGB CONC 32.8 g/dl (32.0-36.5); MEAN CORPUSCULAR VOLUME 93.8 fl (80.0-96.0); MONO # 0.3 10^3/uL (0.0-0.8); MONO % 5.1 % (2.0-8.0); NEUTROPHILS % 64.9 % (36.0-66.0); PLATELET COUNT, AUTOMATED 222 10^3/uL (150-450); RED BLOOD COUNT 4.49 10^6/uL (4.00-5.40); WHITE BLOOD COUNT 6.1 10^3/uL (4.0-10.0)
[2023-10-30 15:56] LABS: ALBUMIN 3.3 G/DL (3.2-5.2); ALKALINE PHOSPHATASE 117 U/L (46-116); ALT/SGPT 132 U/L (7.0-40); AST/SGOT 155 U/L (<34); BILIRUBIN,TOTAL 0.7 MG/DL (0.3-1.2); BLOOD UREA NITROGEN 12 MG/DL (9-23); CALCIUM LEVEL 9.1 MG/DL (8.3-10.6); CARBON DIOXIDE LEVEL 33 MMOL/L (20-31); CHLORIDE LEVEL 105 MMOL/L (98-107); CHOLESTEROL LEVEL 117 MG/DL (<200); CHOLESTEROL RISK RATIO 2.54 (<5); CREATININE FOR GFR 0.68 MG/DL (0.55-1.30); GLOMERULAR FILTRATION RATE > 60.0 (>45); GLUCOSE, FASTING 159 MG/DL (74-106); LDL CHOLESTEROL 33.6 MG/DL (<100); POTASSIUM SERUM 4.4 MMOL/L (3.5-5.1); SODIUM LEVEL 139 MMOL/L (136-145); TOTAL PROTEIN 6.4 G/DL (5.7-8.2); TRIGLYCERIDES LEVEL 187 MG/DL (<150)
[2023-10-30 15:57] LABS: THYROID STIMULATING HORMONE 2.972 uIU/ML (0.55-4.78); TOTAL 25(OH) VITAMIN D 53.6 NG/ML (20.0-100.0)
[2023-10-30 15:58] LABS: VITAMIN B12 LEVEL 793 PG/ML (211-911)
[2023-10-30 15:59] LABS: FOLATE > 24.00 NG/ML (>5.4)
[2023-10-30 16:14] LABS: HEMOGLOBIN A1c 7.9 % (4.0-6.0)
[2023-10-30 16:19] LABS: MAU/CREAT RATIO 12.7 MCG/MG (0.0-30.0)
== END ==
LOC: M PLALAB 13:55
PROVIDERS: ATTEND Physician Assistant
DX: E11.9 Type 2 diabetes mellitus without complications (principal); Z79.899 Other long term (current) drug therapy

== ENCOUNTER → 2024-03-24 | Outpatient (CLI) | payer OTHER ==
[2024-03-24 15:57] LABS: ALBUMIN 3.5 G/DL (3.2-5.2); ALKALINE PHOSPHATASE 85 U/L (46-116); ALT/SGPT 81 U/L (7.0-40); AST/SGOT 76 U/L (<34); BILIRUBIN,TOTAL 0.7 MG/DL (0.3-1.2); BLOOD UREA NITROGEN 14 MG/DL (9-23); CALCIUM LEVEL 9.5 MG/DL (8.3-10.6); CARBON DIOXIDE LEVEL 29 MMOL/L (20-31); CHLORIDE LEVEL 105 MMOL/L (98-107); CREATININE FOR GFR 0.69 MG/DL (0.55-1.30); GLOMERULAR FILTRATION RATE > 60.0 (>45); GLUCOSE, FASTING 205 MG/DL (74-106); SODIUM LEVEL 140 MMOL/L (136-145); TOTAL PROTEIN 6.4 G/DL (5.7-8.2)
[2024-03-24 16:09] LABS: HEPATITIS B SURFACE ANTIGEN NEGATIVE (NEGATIVE)
[2024-03-24 16:30] LABS: HEPATITIS C VIRUS ABY INDEX < 0.02 INDEX (<0.8)
[2024-03-24 16:31] LABS: HEPATITIS B CORE ANTIBODY IGM NEGATIVE (NEGATIVE)
== END ==
LOC: M PLALAB 14:17
PROVIDERS: ATTEND Physician Assistant
DX: R74.8 Abnormal levels of other serum enzymes (principal); R94.5 Abnormal results of liver function studies

== ENCOUNTER → 2024-04-28 | Outpatient (CLI) | payer OTHER | LOC: M RAD 07:39 | PROVIDERS: ATTEND Physician Assistant | DX: R74.8 Abnormal levels of other serum enzymes (principal) ==

== ENCOUNTER → 2024-06-11 | Outpatient (CLI) | payer OTHER ==
[~2024-06-11] MED LIST changes: +GABA-1490 PO; +GABA-1635 PO; -GABA600T4 PO; -GABA800T4 PO
== END ==
LOC: M OUTALCOH 08:04
PROVIDERS: ATTEND Psychiatry & Neurology Psychiatry
DX: F10.10 Alcohol abuse, uncomplicated (principal)

== ENCOUNTER 2024-07-05 13:00 | Outpatient (RCR) | payer OTHER | END 2024-07-12 | LOC: M OUTALCOH 13:00 | PROVIDERS: ATTEND Psychiatry & Neurology Psychiatry | DX: F10.10 Alcohol abuse, uncomplicated (principal) ==

== ENCOUNTER → 2024-08-12 | Outpatient (RCR) | payer OTHER ==
[~2024-08-12] MED LIST changes: +GABA-1172 PO; -GABA-282 PO
== END ==
LOC: M OUTALCOH 07-15 16:00
PROVIDERS: ATTEND Psychiatry & Neurology Psychiatry
DX: F10.10 Alcohol abuse, uncomplicated (principal)

== ENCOUNTER → 2024-08-27 | Outpatient (CLI) | payer OTHER | LOC: M PLARAD 13:26 | PROVIDERS: ATTEND Family Medicine | DX: D18.00 Hemangioma unspecified site (principal); G93.0 Cerebral cysts ==

== ENCOUNTER 2024-09-08 13:29 | Outpatient (RCR) | payer OTHER | END 2024-09-11 | LOC: M OUTALCOH 13:29 | PROVIDERS: ATTEND Psychiatry & Neurology Psychiatry | DX: F10.10 Alcohol abuse, uncomplicated (principal) ==

== ENCOUNTER → 2024-09-08 | Outpatient (CLI) | payer OTHER ==
[2024-09-08 15:15] LABS: IRON (FE) 77 UG/DL (50-170); PERCENT SATURATION 20.9 % (13.2-45.0); TOTAL IRON BINDING CAPACITY 369 UG/DL (250-425)
[2024-09-08 15:19] LABS: IMMUNOGLOBULIN A 171.2 MG/DL (40-350)
[2024-09-08 15:33] LABS: HEPATITIS B SURFACE ANTIGEN NEGATIVE (NEGATIVE)
[2024-09-08 15:53] LABS: HEPATITIS C VIRUS ABY INDEX 0.18 INDEX (<0.8)
[2024-09-08 15:54] LABS: HEPATITIS B CORE ANTIBODY IGM NEGATIVE (NEGATIVE)
[2024-09-13 09:48] LABS: ALPHA 1 ANTITRYPSIN 147 mg/dL (83-199)
[2024-09-13 14:18] LABS: ANA PATTERN Nuclear, Nucleolar (NEGATIVE); ANA SCREEN, IFA POSITIVE (NEGATIVE); ANA TITER 1:40 titer (<1:40)
[2024-09-14 00:36] LABS: TISSUE TRANSGLUTAMINASE IgA < 1.0 U/mL (<15.0)
[2024-09-14 15:02] LABS: LIVER-KIDNEY MICROSOMAL ABY <= 20.0 U (<=20.0)
[2024-09-15 08:11] LABS: ANTI-SMOOTH MUSCLE ANTIBODY < 20 U (<20)
== END ==
LOC: M PLALAB 12:25
PROVIDERS: ATTEND Internal Medicine Gastroenterology
DX: R74.01 Elevation of levels of liver transaminase levels (principal)

== ENCOUNTER 2024-09-27 13:00 | Outpatient (RCR) | payer OTHER | END 2024-10-12 | LOC: M OUTALCOH 13:00 | PROVIDERS: ATTEND Psychiatry & Neurology Psychiatry | DX: F10.10 Alcohol abuse, uncomplicated (principal) | CPT/HCPCS: 90832; G0463 ==

== ENCOUNTER → 2024-10-20 | Outpatient (CLI) | payer MEDICARE, OTHER ==
[2024-10-20 16:48] LABS: HEMOGLOBIN A1c 6.2 % (4.0-6.0)
[2024-10-20 16:52] LABS: ALBUMIN 3.5 G/DL (3.2-5.2); ALKALINE PHOSPHATASE 131 U/L (35-104); ALT/SGPT 27 U/L (7.0-40); AST/SGOT 22 U/L (<34); BILIRUBIN,TOTAL 0.5 MG/DL (0.3-1.2); BLOOD UREA NITROGEN 15 MG/DL (9-23); CALCIUM LEVEL 10.4 MG/DL (8.3-10.6); CARBON DIOXIDE LEVEL 30 MMOL/L (20-31); CHLORIDE LEVEL 103 MMOL/L (98-107); CHOLESTEROL LEVEL 100 MG/DL (<200); CHOLESTEROL RISK RATIO 2.35 (<5); CREATININE FOR GFR 0.69 MG/DL (0.55-1.30); GLOMERULAR FILTRATION RATE > 60.0 (>45); GLUCOSE, FASTING 104 MG/DL (74-106); HDL CHOLESTEROL 42.4 MG/DL (>40); LDL CHOLESTEROL 33.6 MG/DL (<100); NON-HDL-C 57.6 MG/DL; POTASSIUM SERUM 5.7 MMOL/L (3.5-5.1); SODIUM LEVEL 143 MMOL/L (136-145); TOTAL PROTEIN 7.2 G/DL (5.7-8.2); TRIGLYCERIDES LEVEL 120 MG/DL (<150)
[2024-10-20 16:54] LABS: THYROID STIMULATING HORMONE 2.673 uIU/ML (0.55-4.78)
== END ==
LOC: M PLALAB 14:19
DX: E78.2 Mixed hyperlipidemia (principal); K76.0 Fatty (change of) liver, not elsewhere classified; E11.9 Type 2 diabetes mellitus without complications

== ENCOUNTER → 2024-12-27 | Outpatient (CLI) | payer MEDICARE | LOC: M PLAIMG 11:43 | DX: E87.5 Hyperkalemia (principal); M25.562 Pain in left knee ==

== ENCOUNTER → 2025-01-11 | Outpatient (CLI) | payer MEDICARE | LOC: M SOG 07:53 | PROVIDERS: ATTEND Physician Assistant | DX: M79.645 Pain in left finger(s) (principal) ==

== ENCOUNTER 2025-04-25 06:08 | Day surgery (SDC) | payer MEDICARE ==
[~2025-04-25] VITALS: Ht 177.8 cm; Wt 93.3 kg
[~2025-04-25 06:08] MED LIST changes: +CEPH25SS PO; +LIDOCAINE W/EPINEPHrine 1% 20 ML VIAL XX ONE; +LOPE1CAP5 PO; +PRES10CA2 PO; +SEMA0.257 SQ; +SODIUM BICARBONATE 8.4% INJ 50MEQ/50ML VIAL XX ONE; +TRAZ150T90 PO
[2025-04-25] MEDS: POLYSPORIN TOPICAL OINTMENT 15GM As Ordered ONE (08:10)
[2025-04-25 08:15] VITALS: BP 126/69; TEMP 97.7; O2SAT 98
== END 2025-04-25 08:38 | disposition home or self-care (01) ==
LOC: M SDC 06:08
PROVIDERS: ATTEND Orthopaedic Surgery Hand Surgery
DX: M65.312 Trigger thumb, left thumb (principal)

== ENCOUNTER → 2025-06-22 | Outpatient (CLI) | payer MEDICARE ==
[~2025-06-22] MED LIST changes: -LIDOCAINE W/EPINEPHrine 1% 20 ML VIAL XX ONE; -SODIUM BICARBONATE 8.4% INJ 50MEQ/50ML VIAL XX ONE
== END ==
LOC: M WHC 10:00
DX: Z12.31 Encounter for screening mammogram for malignant neoplasm of breast (principal); R92.313 Mammographic fatty tissue density, bilateral breasts

== ENCOUNTER → 2025-06-27 | Outpatient (CLI) | payer MEDICARE ==
[2025-06-27 17:13] LABS: BASO # 0.0 10^3/uL (0.0-0.2); BASO % 0.4 % (0.0-1.0); EOS # 0.1 10^3/uL (0.0-0.5); EOS % 0.7 % (0.0-3.0); LYMPH # 3.0 10^3/uL (1.5-5.0); LYMPH % 35.9 % (24.0-44.0); MONO # 0.5 10^3/uL (0.0-0.8); MONO % 5.7 % (2.0-8.0); NEUTROPHILS # 4.8 10^3/uL (1.5-8.5); NEUTROPHILS % 57.1 % (36.0-66.0); PLATELET COUNT, AUTOMATED 283 10^3/uL (150-450)
[2025-06-27 17:23] LABS: ESTIMATED AVERAGE GLUCOSE 126.0 MG/DL (60-110)
[2025-06-27 17:37] LABS: ALT/SGPT 19.0 U/L (7.0-40); AST/SGOT 18.0 U/L (<34); CALCIUM LEVEL 8.4 MG/DL (8.3-10.6); CARBON DIOXIDE LEVEL 30.0 MMOL/L (20-31); CHLORIDE LEVEL 105.0 MMOL/L (98-107); CHOLESTEROL LEVEL 91.0 MG/DL (<200); CHOLESTEROL RISK RATIO 1.74 (<5); CREATININE FOR GFR 0.8 MG/DL (0.55-1.30); GLOMERULAR FILTRATION RATE 83.3 (>45); LDL CHOLESTEROL 18.3 MG/DL (<100); NON-HDL-C 38.9 MG/DL; POTASSIUM SERUM 4.7 MMOL/L (3.5-5.1); SODIUM LEVEL 140.0 MMOL/L (136-145); TRIGLYCERIDES LEVEL 103.0 MG/DL (<150)
== END ==
LOC: M PLALAB 14:40
DX: E11.9 Type 2 diabetes mellitus without complications (principal)

== ENCOUNTER → 2025-07-14 | Outpatient (CLI) | payer MEDICARE | LOC: M WHC 07:03 | DX: R10.9 Unspecified abdominal pain (principal) ==

== ENCOUNTER → 2025-08-01 | Outpatient (CLI) | payer MEDICARE | LOC: M RAD 16:15 | DX: R10.9 Unspecified abdominal pain (principal); N20.0 Calculus of kidney; N28.1 Cyst of kidney, acquired; Z90.49 Acquired absence of other specified parts of digestive tract; R93.3 Abnormal findings on diagnostic imaging of other parts of digestive tract ==

== ENCOUNTER 2025-08-15 10:05 | Day surgery (SDC) | payer MEDICARE ==
[~2025-08-15] VITALS: Ht 177.8 cm; Wt 79.1 kg
[~2025-08-15 10:05] MED LIST changes: +ONDA-83 PO
[2025-08-15] MEDS ORDERED: LIDOCAINE 2% 100 MG/5 ML SDV (FOR ANES.) As Ordered ONE (11:31)
[2025-08-15 11:57] VITALS: TEMP 97.2
[2025-08-15 12:13] VITALS: BP 102/55; O2SAT 94
== END 2025-08-15 12:20 | disposition home or self-care (01) ==
LOC: M OPP 10:05
PROVIDERS: ATTEND Internal Medicine Gastroenterology
DX: R10.13 Epigastric pain (principal); Z98.84 Bariatric surgery status; G47.30 Sleep apnea, unspecified; Z79.84 Long term (current) use of oral hypoglycemic drugs; Z79.85 Long-term (current) use of injectable non-insulin antidiabetic drugs; Z79.899 Other long term (current) drug therapy

== ENCOUNTER → 2025-08-18 | Outpatient (CLI) | payer MEDICARE ==
[~2025-08-18] MED LIST changes: +PROHANCE 279.3MG/ML 15ML VIAL As Ordered ONE
== END ==
LOC: M RAD 13:10
PROVIDERS: ATTEND Neurological Surgery
DX: G93.89 Other specified disorders of brain (principal)
CPT/HCPCS: 70553; A9576

== ENCOUNTER → 2025-09-14 | Outpatient (CLI) | payer MEDICARE ==
[~2025-09-14] MED LIST changes: -INSU100V19 SC; +INSURSDRX SC; -PROHANCE 279.3MG/ML 15ML VIAL As Ordered ONE
== END ==
LOC: M RAD 06:31
PROVIDERS: ATTEND Student in an Organized Health Care Education/Training Program
DX: M79.89 Other specified soft tissue disorders (principal)

== ENCOUNTER → 2025-09-29 | Outpatient (REF) | payer MEDICARE ==
[2025-09-29 18:41] LABS: CREATININE, URINE 183.0 MG/DL; MALB URINE SIEMENS 20.0 MG/L; MAU/CREAT RATIO 10.9 MCG/MG (0.0-30.0)
[2025-09-29 19:36] LABS: BASO # 0.1 10^3/uL (0.0-0.2); BASO % 0.3 % (0.0-1.0); EOS # 0.0 10^3/uL (0.0-0.5); EOS % 0.1 % (0.0-3.0); LYMPH # 1.7 10^3/uL (1.5-5.0); LYMPH % 11.4 % (24.0-44.0); MONO # 1.1 10^3/uL (0.0-0.8); MONO % 7.5 % (2.0-8.0); NEUTROPHILS # 12.2 10^3/uL (1.5-8.5); NEUTROPHILS % 80.2 % (36.0-66.0); PLATELET COUNT, AUTOMATED 464 10^3/uL (150-450)
[2025-09-29 19:38] LABS: ALT/SGPT 10 U/L (7.0-40); AST/SGOT 9 U/L (<34); CALCIUM LEVEL 8.7 MG/DL (8.3-10.6); CARBON DIOXIDE LEVEL 22 MMOL/L (20-31); CHLORIDE LEVEL 103 MMOL/L (98-107); CREATININE FOR GFR 0.64 MG/DL (0.55-1.30); GLOMERULAR FILTRATION RATE > 90.0 (>45); POTASSIUM SERUM 4.7 MMOL/L (3.5-5.1); SODIUM LEVEL 140 MMOL/L (136-145)
[2025-09-29 20:10] LABS: ESTIMATED AVERAGE GLUCOSE 100.0 MG/DL (60-110)
== END ==
LOC: M SFHCLERA 13:45
PROVIDERS: ATTEND Student in an Organized Health Care Education/Training Program
DX: I20.9 Angina pectoris, unspecified (principal); E11.40 Type 2 diabetes mellitus with diabetic neuropathy, unspecified